=== PATIENT | male | born 1935 | race Caucasian/White ===

== ENCOUNTER 2016-09-27 12:19 | Inpatient (IN) | payer MEDICARE, BC ==
[2016-09-27] VITALS (8 sets, daily range): BP systolic 130–168; BP diastolic 60–76; PULSE 86–95; RESP 12–26; TEMP 96.4–98; O2SAT 96–99
[~2016-09-27] VITALS: Ht 165.1 cm; Wt 102.6 kg
[~2016-09-27 12:19] MED LIST: ALBU1AER INH; ATOR1TAB18 PO; CLOP75TA PO; FENO50TA PO; FURO1TAB62 PO; GLIM4TAB PO; LANTUS2P SQ; LISI-515 PO; METO50TA PO; PREV30CA36 PO; SAXA5TAB2 PO
[2016-09-27] MEDS ORDERED: PIOG45TA3 PO (13:37)
[2016-09-27] MEDS ORDERED: ALBUAER3 INH (13:37)
[2016-09-27] MEDS ORDERED: ASPI81CH CHEW (13:38)
[2016-09-27 13:58] LABS: AUTOMATED NEUTROPHIL # 12.3 TH/MM3 (1.8-7.7); BASOPHIL # 0.1 TH/MM3 (0-0.2); BASOPHIL % 0.7 % (0.0-2.0); EOSINOPHIL # 0.3 TH/MM3 (0-0.4); EOSINOPHIL % 1.8 % (0.0-4.0); HEMATOCRIT 38.5 % (39.0-51.0); HEMO FLAGS DIFF FINAL; LYMPH % 9.1 % (9.0-44.0); LYMPHOCYTE # 1.5 TH/MM3 (1.0-4.8); MEAN CELL VOLUME 94.2 FL (80.0-100.0); MEAN CORPUSCULAR HEMOGLOBIN 31.9 PG (27.0-34.0); MEAN CORPUSCULAR HGB CONC 33.8 % (32.0-36.0); MONO % 12.6 % (0.0-8.0); NEUT % 75.8 % (16.0-70.0); PLATELET COUNT 388 TH/MM3 (150-450); RED BLOOD COUNT 4.09 MIL/MM3 (4.50-5.90); RED CELL DISTRIBUTION WIDTH 13.1 % (11.6-17.2); WHITE BLOOD COUNT 16.2 TH/MM3 (4.0-11.0)
--- NOTE | 2016-09-27 13:58 | RADRPT ---
EXAM DATE/TIME: 09/27/2016 13:44 [facility] COMPARISON: CT BRAIN W/O CONTRAST, September 23, 2016, 4:14. INDICATIONS : Unsteady gait with multiple falls. RADIATION DOSE: 50.44 CTDIvol (mGy) MEDICAL HISTORY : Stroke. Hypertension. diabetes SURGICAL HISTORY : Tonsillectomy. ENCOUNTER: Initial ACUITY: 1 day PAIN SCALE: 0/10 LOCATION: Bilateral head TECHNIQUE: Multiple contiguous axial images were obtained of the head. Using automated exposure control and adj ustment of the mA and/or kV according to patient size, radiation dose was kept as low as reasonably a chievable to obtain optimal diagnostic quality images. FINDINGS: There is mild atrophy and patchy and confluent decreased attenuation in the bilateral centrum semiova le and periventricular white matter again noted characteristic of chronic microvascular ischemic dise ase. There are remote left basal ganglia lacunar infarcts. No signs of acute infarct, hemorrhage or m ass. No fractures. CONCLUSION: No significant change has occurred. Ravi Cesar MD on September 27, 2016 at 13:56 Board Certified Radiologist. This report was verified electronically.
[2016-09-27 14:19] LABS: APTT (PATIENT) 28.9 SEC (24.3-30.1); PROTHROMBIN TIME - PATIENT 11.2 SEC (9.8-11.6)
[2016-09-27 14:25] LABS: ALKALINE PHOSPHATASE 54 U/L (45-117); ALT (GPT) 25 U/L (12-78); ANION GAP 10 MEQ/L (5-15); AST (GOT) 26 U/L (15-37); BICARBONATE 26.3 MEQ/L (21.0-32.0); BLOOD UREA NITROGEN 21 MG/DL (7-18); CHLORIDE 100 MEQ/L (98-107); CREATINE KINASE 208 U/L (39-308); GLOMERULAR FILTRATION RATE 39 ML/MIN (>89); SODIUM (NA) 136 MEQ/L (136-145); TOTAL BILIRUBIN ADULT 0.4 MG/DL (0.2-1.0)
[2016-09-27 14:26] LABS: POTASSIUM 4.7 MEQ/L (3.5-5.1)
[2016-09-27 14:33] LABS: BLOOD, URINE NEG (NEG); COMMENT (UR) CATH-CULT NOT IND; CULTURE IF INDICATED CATH CULTURE NOT IND; GLUCOSE,URINE NEG (NEG); HYALINE CAST, URINE 5 /lpf (RARE); KETONE, URINE NEG (NEG); NITRITE,URINE NEG (NEG); URINE COLOR YELLOW (YELLW/STRAW)
--- NOTE | 2016-09-27 15:24 | RADRPT ---
EXAM DATE/TIME: 09/27/2016 15:20 [facility] COMPARISON: CHEST SINGLE AP, September 23, 2016, 4:14. INDICATIONS : Syncope, right side weakness MEDICAL HISTORY : None. SURGICAL HISTORY : None. ENCOUNTER: Initial ACUITY: 1 week PAIN SCORE: 0/10 LOCATION: Bilateral chest FINDINGS: A single view of the chest demonstrates the lungs to be symmetrically aerated without evidence of mas s, infiltrate or effusion. The cardiomediastinal contours are unremarkable. Osseous structures are intact. CONCLUSION: No evidence of acute cardiopulmonary disease. Gyu Alcaraz MD on September 27, 2016 at 15:23 Board Certified Radiologist. This report was verified electronically.
--- NOTE | 2016-09-27 15:26 | PD ---
HPI Chief Complaint: General Weakness Time Seen by Provider: 13:04 Travel History International Travel<30 days: No Contact w/Intl Traveler<30days: No Traveled to known affect area: No History of Present Illness HPI Patient is a 80-year-old male who presents to ER with his for weakness. Patient reports that he was seen and evaluated here on Tuesday after a fall and for generalized weakness, reports that he had a CAT scan of his head and lab work done and was sent home afterwards. 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 Patient reports that he can't hold onto anything with his right hand and his right hand feels weak. Patient reports that he has been feeling unstable on his feet, reports that he has fallen multiple times. Patient reports that he feels weaker than normal. She is reports that symptoms are worse than when he was here on Tuesday. Patient's is concerned as patient cannot perform his ADL's PFS Past Medical History Arthritis: No Asthma: No Autoimmune Disease: No Blood Disorders: No Anxiety: No Heart Rhythm Problems: No Cancer: No Cardiovascular Problems: Yes High Cholesterol: Yes Chemotherapy: No Chest Pain: Yes Congestive Heart Failure: No COPD: No Cerebrovascular Accident: Yes Diabetes: Yes Patient Takes Glucophage: No Diminished Hearing: No Endocrine: Yes GERD: No Glaucoma: No Genitourinary: No Headaches: No Hepatitis: No Hiatal Hernia: No Hypertension: Yes Immune Disorder: No Kidney Stones: No Musculoskeletal: No Neurologic: Yes Psychiatric: No Respiratory: No Myocardial Infarction: No Radiation Therapy: No Renal Failure: No Seizures: No Sickle Cell Disease: No Sleep Apnea: No Thyroid Disease: No Ulcer: No Past Surgical History Abdominal Surgery: No AICD: No Cardiac Surgery: No Ear Surgery: No Endocrine Surgery: No Eye Surgery: No Genitourinary Surgery: No Gynecologic Surgery: No Joint Replacement: No Oral Surgery: No Pacemaker: No Thoracic Surgery: No Tonsillectomy: Yes Social History Alcohol Use: Yes (MODERATELY) Tobacco Use: No Substance Use: No Allergies-Medications (Allergen,Severity, Reaction): Coded Allergies: No Known Allergies (Verified , 09/27/16) Reported Meds & Prescriptions Reported Meds & Active Scripts Active Reported Aspirin 81 Mg Chew 81 Mg CHEW DAILY Proair Hfa 8.5 GM Inh (Albuterol Sulfate) 90 Mcg/Act Aer 2 Puff INH Q4HR PRN 108 mcg/actuation Pioglitazone (Pioglitazone HCl) 45 Mg Tab 45 Mg PO DAILY Clopidogrel (Clopidogrel Bisulfate) 75 Mg Tab 75 Mg PO DAILY Lantus Inj (Insulin Glargine) 1,000 Unit/10 Ml Vial 12 Units SQ HS Atorvastatin (Atorvastatin Calcium) 80 Mg Tab 80 Mg PO HS Lasix (Furosemide) 20 Mg Tab 20 Mg PO DAILY Glimepiride 4 Mg Tab 4 Mg PO DAILY Take with breakfast or first main meal Metoprolol Tartrate 50 Mg Tab 50 Mg PO BID Tricor (Fenofibrate) 145 Mg Tab 145 Mg PO DAILY Takw with food. Lisinopril 20 Mg Tab 20 Mg PO DAILY Review of Systems General / Constitutional: No: Fever Eyes: No: Visual changes HENT: No: Headaches Cardiovascular: No: Chest Pain or Discomfort Respiratory: No: Shortness of Breath Gastrointestinal: No: Abdominal Pain Genitourinary: No: Dysuria Musculoskeletal: No: Pain Skin: No Rash Neurologic: Positive: Coordination Problem, Ataxia, Paresthesia, No: Weakness Psychiatric: No: Depression Endocrine: No: Polydipsia Hematologic/Lymphatic: No: Easy Bruising Physical Exam Narrative GENERAL: No acute distress, nontoxic SKIN: Warm and dry. HEAD: Atraumatic. Normocephalic. EYES: Pupils equal and round. No scleral icterus. No injection or drainage. ENT: No nasal bleeding or discharge. Mucous membranes pink and moist. NECK: Trachea midline. No JVD. CARDIOVASCULAR: Regular rate and rhythm. No murmur appreciated. RESPIRATORY: No accessory muscle use. Clear to auscultation. Breath sounds equal bilaterally. GASTROINTESTINAL: Abdomen soft, non-tender, nondistended. pt with redness and erythema to lower abdomen under panus - erythema extends to scrotum MUSCULOSKELETAL: No obvious deformities. No clubbing. No cyanosis. No edema. NEUROLOGICAL: Awake and alert. Speech normal, patient unable to perform finger- nose test to right upper extremity, patient with decreased strength in mems integration engineer to right upper extremity PSYCHIATRIC: Appropriate mood and affect; insight and judgment normal. Data Data Last Documented VS Vital Signs Date Time Temp Pulse Resp B/P Pulse Ox O2 Delivery O2 Flow Rate FiO2 09/27/16 13:24 97 Room Air 09/27/16 12:21 98.0 95 12 132/75 Orders Electrocardiogram (09/27/16 ) Prothrombin Time / Inr (Pt) (09/27/16 13:19) Act Partial Throm Time (Ptt) (09/27/16 13:19) Complete Blood Count With Diff (09/27/16 13:19) Comprehensive Metabolic Panel (09/27/16 13:19) Creatine Kinase (Cpk) (09/27/16 13:19) Troponin I (09/27/16 13:19) Urinalysis - C+S If Indicated (09/27/16 13:19) Ecg Monitoring (09/27/16 13:19) Iv Access Insert/Monitor (09/27/16 13:19) Oximetry (09/27/16 13:19) Sodium Chloride 0.9% Flush (Ns Flush) (09/27/16 13:30) Ct Brain W/O Iv Contrast(Rout) (09/27/16 13:20) Influenzae A/B Antigen (09/27/16 15:10) Chest, Single Ap (09/27/16 15:10) Vancomycin Inj (Vancomycin Inj) (09/27/16 15:30) Blood Culture (09/27/16 15:30) Us Testicles W Doppler (09/27/16 ) Sodium Chlor 0.9% 1000 Ml Inj (Ns 1000 M (09/27/16 15:45) Admit Order (Ed Use Only) (09/27/16 15:45) Labs Laboratory Tests Test 09/27/16 09/27/16 13:35 14:00 White Blood Count 16.2 TH/MM3 Red Blood Count 4.09 MIL/MM3 Hemoglobin 13.0 GM/DL Hematocrit 38.5 % Mean Corpuscular Volume 94.2 FL Mean Corpuscular Hemoglobin 31.9 PG Mean Corpuscular Hemoglobin 33.8 % Concent Red Cell Distribution Width 13.1 % Platelet Count 388 TH/MM3 Mean Platelet Volume 8.5 FL Neutrophils (%) (Auto) 75.8 % Lymphocytes (%) (Auto) 9.1 % Monocytes (%) (Auto) 12.6 % Eosinophils (%) (Auto) 1.8 % Basophils (%) (Auto) 0.7 % Neutrophils # (Auto) 12.3 TH/MM3 Lymphocytes # (Auto) 1.5 TH/MM3 Monocytes # (Auto) 2.0 TH/MM3 Eosinophils # (Auto) 0.3 TH/MM3 Basophils # (Auto) 0.1 TH/MM3 CBC Comment DIFF FINAL Differential Comment Prothrombin Time 11.2 SEC Prothromb Time International 1.0 RATIO Ratio Activated Partial 28.9 SEC Thromboplast Time Sodium Level 136 MEQ/L Potassium Level 4.7 MEQ/L Chloride Level 100 MEQ/L Carbon Dioxide Level 26.3 MEQ/L Anion Gap 10 MEQ/L Blood Urea Nitrogen 21 MG/DL Creatinine 1.71 MG/DL Estimat Glomerular Filtration 39 ML/MIN Rate Random Glucose 189 MG/DL Calcium Level 9.0 MG/DL Total Bilirubin 0.4 MG/DL Aspartate Amino Transf 26 U/L (AST/SGOT) Alanine Aminotransferase 25 U/L (ALT/SGPT) Alkaline Phosphatase 54 U/L Total Creatine Kinase 208 U/L Troponin I LESS THAN 0.02 NG/ML Total Protein 8.2 GM/DL Albumin 3.0 GM/DL Urine Color YELLOW Urine Turbidity CLEAR Urine pH 5.0 Urine Specific [place] 1.008 Urine Protein NEG mg/dL Urine Glucose (UA) NEG mg/dL Urine Ketones NEG mg/dL Urine Occult Blood NEG Urine Nitrite NEG Urine Bilirubin NEG Urine Urobilinogen LESS THAN 2.0 MG/DL Urine Leukocyte Esterase NEG Urine RBC LESS THAN 1 /hpf Urine WBC 1 /hpf Urine Hyaline Casts 5 /lpf Microscopic Urinalysis Comment CATH-CULT NOT IND MDM Medical Decision Making Medical Screen Exam Complete: Yes Emergency Medical Condition: Yes Interpretation(s) EKG at 1312: Normal sinus rhythm at 93 beats minute, QT/QTc 339/390 Vital Signs Date Time Temp Pulse Resp B/P Pulse Ox O2 Delivery O2 Flow Rate FiO2 09/27/16 13:24 97 Room Air 09/27/16 12:21 98.0 95 12 132/75 99 Room Air Differential Diagnosis CVA, arrhythmia, electrolyte abnormality, intracerebral hemorrhage, ACS, intracranial mass Narrative Course Patient is a 72-year-old male who presents [facility] [place] with generalized weakness starting on Tuesday. Patient has progressed to increased weakness to his right upper extremity, reports that symptoms started Tuesday and have been persistent. Reports that he has fallen 3 times since he was discharged from hospital. This is concern for possible CVA or intracranial hemorrhage, CT of head ordered CBC, BMP, cardiac enzymes ordered for further evaluation symptoms. CT of the head : remote left basal ganglier lacunar infarcts with no signs of acute infarct, hemorrhage or mass. NIH scale 1 pt also with wbc 16, it is unclear his source of infection. Patient does have what appears to be a fungal infection under his pannus which extends to his testicle, it does not appear to be necrotizing fasciitis - will treat for possible cellulitis case reviewed with Dr Elkins who accepts pt to service Diagnosis Primary Impression: TIA (transient ischemic attack) Qualified Code: G45.9 - Transient cerebral ischemia, unspecified type Additional Impression: Cellulitis of scrotum Admitting Information Admitting Physician Requests: Observation Natty Nugent DO Sep 27, 2016 15:26
[2016-09-27] MEDS ORDERED: VANCOMYCIN INJ 1,600 MG in SODIUM CHLORID 0.9% 500 ML INJ 500 ML IV ONE (15:30)
[2016-09-27] MEDS ORDERED: SODIUM CHLOR 0.9% 1000 ML INJ 1,000 ML IV ONE (15:45)
[2016-09-27] MEDS: SODIUM CHLORIDE 0.9% FLUSH 5 ML FLUSH IVF PRN ×2 (16:13→16:40)
--- NOTE | 2016-09-27 16:58 | RADRPT ---
EXAM DATE/TIME: 09/27/2016 15:57 [facility] COMPARISON: No previous studies available for comparison. INDICATIONS : Testicular pain. MEDICAL HISTORY : Hypercholesterolemia. Hypertension. Cerebrovascular accident. Diabetes. SURGICAL HISTORY : Tonsillectomy. ENCOUNTER: Initial ACUITY: 1 day PAIN SCORE: 0/10 LOCATION: Bilateral scrotum. MEASUREMENTS: RIGHT TESTICLE: 3.2 x 2.2 x 1.9cm LEFT TESTICLE: 2.8 x 2.2 x 1.9cm FINDINGS: Both testes are small but no focal testicular lesion demonstrated. There is blood flow demonstrated t o both testes. Right and left epididymis are normal. There is thickening and hyperemia of the scrotal wall with moderate right and small left hydrocele fl uid. CONCLUSION: 1. Nonspecific scrotal wall edema and hyperemia with hydrocele fluid. Could be infectious. No drainab le fluid within the scrotal wall. 2. No torsion or other acute testicular abnormality. Guy Alcaraz MD on September 27, 2016 at 16:55 Board Certified Radiologist. This report was verified electronically.
[2016-09-27] MEDS ORDERED: SODIUM CHLOR 0.9% 1000 ML INJ 1,000 ML IV SCH (17:00)
[2016-09-27] MEDS ORDERED: MAGNESIUM HYDROXIDE SUSP 30 ML CUP PO PRN (17:15)
[2016-09-27] MEDS ORDERED: ONDANSETRON HCL 4 MG/2 ML VIAL IVP PRN (17:15)
[2016-09-27] MEDS ORDERED: Vancomycin Consult Pharmacy 1 EA OTHER SCH (17:15)
[2016-09-27] MEDS ORDERED: DEXTROSE 50% IN WATER 50 ML VIAL(D50) IV PUSH PRN (17:15)
[2016-09-27] MEDS ORDERED: ACETAMINOPHEN 325 MG TAB PO PRN (17:15)
[2016-09-27] MEDS ORDERED: VANCOMYCIN INJ 1,000 MG in SODIUM CHLOR 0.9% 250 ML INJ 250 ML IV SCH (17:15)
[2016-09-27] MEDS ORDERED: ALBUTEROL SULFATE 90 MCG/ACT HFA 8 GM INHALER INH PRN (17:15)
[2016-09-27] MEDS ORDERED: SODIUM CHLORIDE 0.9% FLUSH 5 ML FLUSH FLUSH PRN (17:15)
[2016-09-27] MEDS ORDERED: NALOXONE HCL 0.4 MG/ML AMP IV PRN (17:15)
[2016-09-27] MEDS ORDERED: GLUCAGON 1 MG/ML VIAL OTHER PRN (17:15)
--- NOTE | 2016-09-27 17:24 | HHI.HP ---
HPI Service [facility] Primary Care Physician Gary Cardenas MD Admission Diagnosis TIA Diagnoses: Chief Complaint: Right-sided weakness and falls Travel History International Travel<30 Days: No Contact w/Intl Traveler <30 Da: No Traveled to Known Affected Are: No History of Present Illness This is a pleasant 80-year-old gentleman with a past medical history which includes hyperlipidemia, CVA, diabetes mellitus type 2, hypertension. Patient was recently seen in the emergency department last Tuesday after he had right-sided weakness and suffered a fall patient was subsequently discharged home. Patient returns today he reports he has fallen 3 more times and has continued right-sided weakness. Right-sided weakness seems to be getting worse. Patient reports that over the past 3 days he has been having difficulty with ambulation and is unable to hold or grasp objects with the right hand. Patient denies slurred speech or facial asymmetry, headache or visual changes. Patient denies hitting his head on any of these falls and reports he's had no injuries so far. On examining patient is found to have bilateral groin erythema with satellite lesions and an odor consistent with Yovanny. Patient reports this is been present for the past 3 months and does seem to be getting worse. Patient does report moderate pain that comes and goes. Pain is worse when anything touches the skin. At home patient has been trying to keep the area dry and clean but this has not helped it continues to get worse. Patient denies chest pain shortness of breath fevers chills nausea vomiting diarrhea constipation. Review of Systems Other Other systems reviewed and negative except as mentioned in history of present illness Past Family Social History Past Medical History hyperlipidemia, CVA, diabetes mellitus type 2, hypertension Past Surgical History Tonsillectomy Reported Medications Aspirin 81 Mg Chew 81 Mg CHEW DAILY Proair Hfa 8.5 GM Inh (Albuterol Sulfate) 90 Mcg/Act Aer 2 Puff INH Q4HR PRN 108 mcg/actuation Pioglitazone (Pioglitazone HCl) 45 Mg Tab 45 Mg PO DAILY Clopidogrel (Clopidogrel Bisulfate) 75 Mg Tab 75 Mg PO DAILY Lantus Inj (Insulin Glargine) 1,000 Unit/10 Ml Vial 12 Units SQ HS Atorvastatin (Atorvastatin Calcium) 80 Mg Tab 80 Mg PO HS Lasix (Furosemide) 20 Mg Tab 20 Mg PO DAILY Glimepiride 4 Mg Tab 4 Mg PO DAILY Take with breakfast or first main meal Metoprolol Tartrate 50 Mg Tab 50 Mg PO BID Tricor (Fenofibrate) 145 Mg Tab 145 Mg PO DAILY Takw with food. Lisinopril 20 Mg Tab 20 Mg PO DAILY Allergies: Coded Allergies: No Known Allergies (Verified , 09/27/16) Active Ordered Medications Current Medications Medications (Trade) Dose Ordered Sig/Alexandru Route Start Time Stop Time Status Last Admin IV Flush 2 ml 2 ml UNSCH PRN IVF 09/27/16 13:30 09/27/16 16:40 (Vancomycin Inj/ NS 500 ml Inj) 516 ml @ 250 mls/hr ONCE ONCE IV 09/27/16 15:30 09/27/16 17:33 09/27/16 16:40 Family History Paternal grandfather had CVA, mother had heart disease Social History Patient lives at home with his reports moderate EtOH use which she reports as one alcoholic beverage on most days of the week Denies tobacco use or illicit drug use Physical Exam Vital Signs Vital Signs Date Time Temp Pulse Resp B/P Pulse Ox O2 Delivery O2 Flow Rate FiO2 09/27/16 13:24 97 Room Air 09/27/16 12:21 98.0 95 12 132/75 99 Room Air Physical Exam GENERAL: This is a well-nourished, well-developed patient, in no apparent distress. SKIN: Erythema bilateral groins with satellite lesions extends from just below the pannus to bilateral testicles HEAD: Atraumatic. Normocephalic. No temporal or scalp tenderness. EYES: Extraocular motions intact. No scleral icterus. No injection or drainage. CARDIOVASCULAR: Regular rate and rhythm without murmurs, gallops, or rubs. RESPIRATORY: Clear to auscultation. Breath sounds equal bilaterally. No wheezes , rales, or rhonchi. GASTROINTESTINAL: Abdomen soft, non-tender, nondistended. No guarding. MUSCULOSKELETAL: Extremities without clubbing, cyanosis, or edema. No joint tenderness, effusion, or edema noted. No calf tenderness. Negative Homans sign bilaterally. 3-4 out of 5 right upper extremity 4 out of 5 right lower extremity. NEUROLOGICAL: Awake and alert. Sensory grossly within normal limits. 3-4 out of 5 right upper extremity 4 out of 5 right lower extremity. Normal speech. Laboratory Laboratory Tests Test 09/27/16 09/27/16 13:35 14:00 White Blood Count 16.2 Red Blood Count 4.09 Hemoglobin 13.0 Hematocrit 38.5 Mean Corpuscular Volume 94.2 Mean Corpuscular Hemoglobin 31.9 Mean Corpuscular Hemoglobin 33.8 Concent Red Cell Distribution Width 13.1 Platelet Count 388 Mean Platelet Volume 8.5 Neutrophils (%) (Auto) 75.8 Lymphocytes (%) (Auto) 9.1 Monocytes (%) (Auto) 12.6 Eosinophils (%) (Auto) 1.8 Basophils (%) (Auto) 0.7 Neutrophils # (Auto) 12.3 Lymphocytes # (Auto) 1.5 Monocytes # (Auto) 2.0 Eosinophils # (Auto) 0.3 Basophils # (Auto) 0.1 CBC Comment DIFF FINAL Differential Comment Prothrombin Time 11.2 Prothromb Time International 1.0 Ratio Activated Partial 28.9 Thromboplast Time Sodium Level 136 Potassium Level 4.7 Chloride Level 100 Carbon Dioxide Level 26.3 Anion Gap 10 Blood Urea Nitrogen 21 Creatinine 1.71 Estimat Glomerular Filtration 39 Rate Random Glucose 189 Calcium Level 9.0 Total Bilirubin 0.4 Aspartate Amino Transf 26 (AST/SGOT) Alanine Aminotransferase 25 (ALT/SGPT) Alkaline Phosphatase 54 Total Creatine Kinase 208 Troponin I LESS THAN 0.02 Total Protein 8.2 Albumin 3.0 Urine Color YELLOW Urine Turbidity CLEAR Urine pH 5.0 Urine Specific [place] 1.008 Urine Protein NEG Urine Glucose (UA) NEG Urine Ketones NEG Urine Occult Blood NEG Urine Nitrite NEG Urine Bilirubin NEG Urine Urobilinogen LESS THAN 2.0 Urine Leukocyte Esterase NEG Urine RBC LESS THAN 1 Urine WBC 1 Urine Hyaline Casts 5 Microscopic Urinalysis Comment CATH-CULT NOT IND Date/Time Procedure Status Source Growth 09/27/16 15:55 Aerobic Blood Culture Received Blood Peripheral Pending 09/27/16 15:55 Anaerobic Blood Culture Received Blood Peripheral Pending 09/27/16 15:45 Influenza Types A,B Antigen (AMIRA) - Final Complete Nasal Aspirate NEGATIVE FOR FLU A AND B ANTIGEN.... Result Diagram: 09/27/16 6685 09/27/16 1335 Assessment and Plan Assessment and Plan This is a pleasant 80-year-old gentleman with a past medical history which includes hyperlipidemia, CVA, diabetes mellitus type 2, hypertension. Since the emergency department with right-sided weakness and bilateral groin cellulitis superimposed on Yovanny. Leukocytosis Cellulitis bilaterally and coronary superimposed on yovanny infection Nystatin cream Continue vancomycin with pharmacy consult to dose Testicular ultrasound pending, blood cultures 2 obtained and pending Recheck a CBC Focal weakness right side [address] of the head reviewed by myself as well as Dr. Morris- no signs of acute infarct hemorrhage or mass mild atrophy remote left basal ganglia lacunar infarcts Continue daily aspirin and Plavix Also continue atorvastatin and TriCor check lipid profile in a.m. Physical therapy consultation and case management consult MRI/MRA ordered and pending,US bilateral carotid arteries ordered and pending , 2-D echocardiogram ordered and pending Diabetes mellitus type 2 Hold Actos and Glimepiride Levemir 12 units daily at bedtime Accu-Cheks before meals at bedtime with sliding scale insulin coverage Hemoglobin A1c in a.m. Slightly elevated renal indices BUN 21 creatinine 1.71 and GFR 39 hold Lovenox and Lasix as patient's home medications Gentle hydration and 50 cc/h Recheck in a.m. DVT prophylaxis with SCDs Discussed plan of care with patient RN and ER provider Written by Maria C Gagnon, acting as scribe for Dr. Morris on 09/27/16 at 17 :23. The documentation accurately reflects the work performed [id number] by me on at 17:23. Code Status Alternatively code Physician Certification 2 Midnight Certification Type: Admission for Inpatient Services Order for Inpatient Services The services are ordered in accordance with Medicare regulations or non- Medicare payer requirements, as applicable. In the case of services not specified as inpatient-only, they are appropriately provided as inpatient services in accordance with the 2-midnight benchmark. Estimated LOS (days): 3 days is the estimated time the patient will need to remain in the hospital, assuming treatment plan goals are met and no additional complications. Post-Hospital Plan: Not yet determined Maria C Gagnon Sep 27, 2016 17:24 Hermann Morris MD Sep 27, 2016 17:35
[2016-09-27] MEDS: INSULIN ASPART SUPPLEMENTAL SCALE SQ SCH (20:06)
[2016-09-27] MEDS: INSULIN DETEMIR 100 UNITS/ML VIAL SQ SCH (20:30)
[2016-09-27] MEDS: SODIUM CHLORIDE 0.9% FLUSH 5 ML FLUSH FLUSH SCH (20:30)
[2016-09-27] MEDS: METOPROLOL TARTRATE 50 MG TAB PO SCH (20:30)
[2016-09-27] MEDS: cefTRIAXone INJ 1,000 MG in SODIUM CHLORIDE 0.9% INJ 100 ML IV SCH (20:31)
[2016-09-27] MEDS: NYSTATIN 100,000 UNIT/GM CREAM 15 GM TOPICAL SCH (20:50)
[2016-09-27] MEDS: ATORVASTATIN 80 MG TAB PO SCH (20:50)
--- NOTE | 2016-09-27 21:12 | RADRPT ---
EXAM DATE/TIME: 09/27/2016 18:20 [facility] COMPARISON: No previous studies available for comparison. INDICATIONS : Cerebrovascular accident. MEDICAL HISTORY : Hypercholesterolemia. Hypertension. Cerebrovascular accident. Diabetes. SURGICAL HISTORY : Tonsillectomy. ENCOUNTER: Initial ACUITY: 1 day PAIN SCORE: 0/10 LOCATION: Bilateral neck PEAK SYSTOLIC VELOCITIES (cm/sec): ICA/CCA RATIO: Right: 0.8 Left: 0.8 ICA: Right: 88 Left: 100 CCA: Right: 108 Left: 122 ECA: Right: 91 Left: 126 VERTEBRAL: Right: 36 antegrade Left: 61 antegrade Elevated flow velocities and ICA/CCA ratios have been found to correlate with increased degrees of vessel stenosis, calculated as percentage of diameter relative to a normal segment of distal ICA/CCA FINDINGS: RIGHT CAROTID: There is moderate plaque at the bulb and external carotid artery. Minimal plaque of the proximal righ t internal carotid artery. LEFT CAROTID: Mild plaque of the bulb and proximal internal carotid artery. VERTEBRAL ARTERIES: Antegrade flow is seen in both vertebral arteries. MISCELLANEOUS: None. CONCLUSION: Bifurcation atherosclerotic plaque, mild to moderate on the right, mild on the left. No hemodynamical ly significant narrowing on either side. Guy Alcaraz MD on September 27, 2016 at 21:10 Board Certified Radiologist. This report was verified electronically.
[2016-09-28] VITALS (10 sets, daily range): BP systolic 114–154; BP diastolic 56–69; PULSE 71–105; RESP 18–20; TEMP 96.3–97.9; O2SAT 94–97
[2016-09-28] MEDS: INSULIN ASPART SUPPLEMENTAL SCALE SQ SCH ×4 (07:00→22:06)
[2016-09-28 07:16] LABS: ANION GAP 10 MEQ/L (5-15); AUTOMATED NEUTROPHIL # 7.6 TH/MM3 (1.8-7.7); BASOPHIL # 0.1 TH/MM3 (0-0.2); BASOPHIL % 0.8 % (0.0-2.0); BICARBONATE 25.1 MEQ/L (21.0-32.0); BLOOD UREA NITROGEN 17 MG/DL (7-18); CHLORIDE 107 MEQ/L (98-107); EOSINOPHIL # 0.6 TH/MM3 (0-0.4); EOSINOPHIL % 4.9 % (0.0-4.0); GLOMERULAR FILTRATION RATE 56 ML/MIN (>89); HEMATOCRIT 36.2 % (39.0-51.0); HEMO FLAGS DIFF FINAL; LYMPH % 20.1 % (9.0-44.0); LYMPHOCYTE # 2.5 TH/MM3 (1.0-4.8); MEAN CELL VOLUME 94.8 FL (80.0-100.0); MEAN CORPUSCULAR HGB CONC 33.8 % (32.0-36.0); MONO % 13.1 % (0.0-8.0); NEUT % 61.1 % (16.0-70.0); PLATELET COUNT 361 TH/MM3 (150-450); POTASSIUM 3.8 MEQ/L (3.5-5.1); RED BLOOD COUNT 3.82 MIL/MM3 (4.50-5.90); SODIUM (NA) 142 MEQ/L (136-145); WHITE BLOOD COUNT 12.4 TH/MM3 (4.0-11.0)
[2016-09-28 07:18] LABS: HDL CHOLESTEROL 26.6 MG/DL (40.0-60.0); LDL CHOLESTEROL 41 MG/DL (0-99)
[2016-09-28] MEDS ORDERED: ASPIRIN 81 MG CHEW TAB CHEW SCH (09:00)
[2016-09-28] MEDS ORDERED: CLOPIDOGREL 75 MG TAB PO SCH (09:00)
[2016-09-28] MEDS ORDERED: FENOFIBRATE 145 MG TAB PO SCH (09:00)
--- NOTE | 2016-09-28 09:58 | RADRPT ---
EXAM DATE/TIME: 09/28/2016 09:27 [facility] COMPARISON: CT BRAIN W/O CONTRAST, September 27, 2016, 13:44. INDICATIONS : Increasing right sided weakness with frequent falls MEDICAL HISTORY : Hypertension. Diabetes mellitus type 2. TIA SURGICAL HISTORY : Tonsillectomy. ENCOUNTER: Subsequent ACUITY: 4-6 days PAIN SCORE: 0/10 LOCATION: cranial TECHNIQUE: Multiplanar, multisequence MRI of the brain was performed without contrast. FINDINGS: CEREBRUM: The ventricles are normal for age. No evidence of midline shift, mass lesion, hemorrhage. There is a small focal acute infarct involving the left basal ganglia. No extraaxial fluid collections are see n. The pituitary gland and suprasellar cistern are normal in configuration. WHITE MATTER: Moderate chronic white matter changes are noted bilaterally. This is characteristic for patient's age . POSTERIOR FOSSA: The cerebellum and brainstem are intact. The 4th ventricle is midline. The cerebellopontine angle is unremarkable. The cerebellar tonsils are normal in position. DIFFUSION IMAGING: Focal area of increased signal characteristic for restricted diffusion is noted in the left basal julio cesar glia characteristic of a focal acute small infarct. EXTRACRANIAL: The visualized portions of the orbits and paranasal sinuses are unremarkable. CONCLUSION: 1. There is a focal acute small infarct in the left basal ganglia. 2. There is bilateral cortical atrophy. 3. There is chronic moderate bilateral white matter changes. Daniel Figueroa MD on September 28, 2016 at 9:54 Board Certified Radiologist. This report was verified electronically.
[2016-09-28] MEDS ORDERED: PNEUMOCOCCAL POLYVALENT INJ 25 MCG/0.5 ML SYR IM ONE (10:00)
--- NOTE | 2016-09-28 11:01 | HHI.PR ---
Subjective Remarks Follow-up right-sided weakness/groin cellulitis 09/28/16-patient seen and examined, stable no acute event overnight. Currently afebrile. WBC trending down. Objective Vitals Vital Signs Date Time Temp Pulse Resp B/P Pulse Ox O2 Delivery O2 Flow Rate FiO2 09/28/16 08:27 97 21 09/28/16 08:10 96.7 82 20 132/62 97 09/28/16 07:43 84 09/28/16 04:00 97.9 71 18 114/56 95 09/28/16 03:30 71 09/28/16 00:00 96.7 83 20 152/67 96 09/27/16 20:00 96.4 91 22 168/76 97 09/27/16 16:35 86 23 130/60 98 Room Air 09/27/16 15:35 88 23 148/69 96 Room Air 09/27/16 14:35 88 23 146/66 96 Room Air 09/27/16 14:00 90 26 149/65 96 Room Air 09/27/16 13:24 97 Room Air 09/27/16 13:20 94 24 154/74 98 Room Air 09/27/16 12:21 98.0 95 12 132/75 99 Room Air I/O 09/27/16 09/27/16 09/27/16 09/28/16 09/28/16 09/28/16 07:00 15:00 23:00 07:00 15:00 23:00 Intake Total 120 ml Output Total 375 ml 425 ml Balance -375 ml -305 ml Intake Oral 120 ml Output Urine Total 375 ml 425 ml # Bowel Movements 0 Result Diagram: 09/28/16 0615 09/28/16 0615 Imaging Last Impressions Chest X-Ray 09/27/16 1510 Signed Impressions: Service Date/Time: Tuesday, September 27, 2016 15:20 - CONCLUSION: No evidence of acute cardiopulmonary disease. Guy Alcaraz MD Head CT 09/27/16 1320 Signed Impressions: Service Date/Time: Tuesday, September 27, 2016 13:44 - CONCLUSION: No significant change has occurred. Ravi Cesar MD Scrotum Ultrasound 09/27/16 0000 Signed Impressions: Service Date/Time: Tuesday, September 27, 2016 15:57 - CONCLUSION: 1. Nonspecific scrotal wall edema and hyperemia with hydrocele fluid. Could be infectious. No drainable fluid within the scrotal wall. 2. No torsion or other acute testicular abnormality. Guy Alcaraz MD Carotid Artery Ultrasound 09/27/16 0000 Signed Impressions: Service Date/Time: Tuesday, September 27, 2016 18:20 - CONCLUSION: Bifurcation atherosclerotic plaque, mild to moderate on the right, mild on the left. No hemodynamically significant narrowing on either side. Guy Alcaraz MD Objective Remarks GENERAL: This is a well-nourished, well-developed patient, in no apparent distress. SKIN: Erythema bilateral groins with satellite lesions extends from just below the pannus to bilateral testicles HEAD: Atraumatic. Normocephalic. No temporal or scalp tenderness. EYES: Extraocular motions intact. No scleral icterus. No injection or drainage. CARDIOVASCULAR: Regular rate and rhythm without murmurs, gallops, or rubs. RESPIRATORY: Clear to auscultation. Breath sounds equal bilaterally. No wheezes , rales, or rhonchi. GASTROINTESTINAL: Abdomen soft, non-tender, nondistended. No guarding. MUSCULOSKELETAL: Extremities without clubbing, cyanosis, or edema. No joint tenderness, effusion, or edema noted. No calf tenderness. Negative Homans sign bilaterally. 3-4 out of 5 right upper extremity 4 out of 5 right lower extremity. NEUROLOGICAL: Awake and alert. Sensory grossly within normal limits. 3-4 out of 5 right upper extremity 4 out of 5 right lower extremity. Normal speech. A/P Problem List: (1) Cellulitis of scrotum ICD Code: N49.2 Status: Acute (2) TIA (transient ischemic attack) ICD Code: G45.9 Status: Acute (3) Generalized weakness ICD Code: R53.1 Status: Acute Assessment and Plan This is a pleasant 80-year-old gentleman with a past medical history which includes hyperlipidemia, CVA, diabetes mellitus type 2, hypertension. Since the emergency department with right-sided weakness and bilateral groin cellulitis superimposed on Yovanny. Leukocytosis 2/2 Cellulitis bilaterally and coronary superimposed on yovanny infection Continue Nystatin cream as well as vancomycin + Rocephin and monitor culture Testicular ultrasound noted with finding of Nonspecific scrotal wall edema and hyperemia with hydrocele fluid Focal weakness right side [address] of the head with no signs of acute infarct hemorrhage or mass mild atrophy remote left basal ganglia lacunar infarcts Continue daily aspirin and Plavix as well as atorvastatin and TriCor Physical therapy/OT consultation and case management consult MRI/MRA ordered and pending,US bilateral carotid arteries ordered and pending , 2-D echocardiogram ordered and pending Consult neurology Diabetes mellitus type 2 Hold Actos and Glimepiride Levemir 12 units daily at bedtime Accu-Cheks before meals at bedtime with sliding scale insulin coverage Hemoglobin A1c pending. Mild acute renal failure :Slightly elevated renal indices BUN 21 creatinine 1.71 and GFR 39-now resolved with gentle IV fluid hydration hold Lovenox and Lasix as patient's home medications Avoid all nephrotoxic drugs DVT prophylaxis with SCDs Problem Qualifiers (1) TIA (transient ischemic attack): Qualified Code: G45.9 - Transient cerebral ischemia, unspecified type Hermann Morris MD Sep 28, 2016 11:01
[2016-09-28] MEDS: FENOFIBRATE 48 MG TAB PO SCH (11:03)
[2016-09-28] MEDS: METOPROLOL TARTRATE 50 MG TAB PO SCH ×2 (11:04→22:01)
--- NOTE | 2016-09-28 11:08 | RADRPT ---
EXAM DATE/TIME: 09/28/2016 09:27 [facility] COMPARISON: No previous studies available for comparison. INDICATIONS : Increasing right sided weakness with frequent falls. MEDICAL HISTORY : Hypertension. Diabetes mellitus type 2. TIA SURGICAL HISTORY : Tonsillectomy. ENCOUNTER: Subsequent ACUITY: 4-6 days PAIN SCORE: 0/10 LOCATION: cranial Please note a normal MRA of the brain does not entirely exclude the possibility of a small aneurysm, nor the possibility of distal intracranial vessel disease. TECHNIQUE: 3D time of flight MRA was performed. Source images, multiplanar STS MIP, and 3D volume MIP reconstru ctions were reviewed. FINDINGS: The right posterior cerebral artery arises in fashion. There is a moderate focal stenotic narro wing involving the P2 segment. [place] vessels are otherwise intact and unremarkable. No evidence of aneurysm or vascular malformation. No major vessel occlusion. CONCLUSION: Stenotic narrowing involving the P2 portion of right posterior cerebral artery which arises in fashion. Otherwise normal study Guy Hicks MD on September 28, 2016 at 10:58 Board Certified Radiologist. This report was verified electronically.
[2016-09-28] MEDS: NYSTATIN 100,000 UNIT/GM CREAM 15 GM TOPICAL SCH ×2 (11:13→22:04)
[2016-09-28] MEDS: SODIUM CHLORIDE 0.9% FLUSH 5 ML FLUSH FLUSH SCH ×2 (11:14→21:00)
[2016-09-28 15:48] LABS: HEMOGLOBIN A1a 2.2 %; HEMOGLOBIN A1b 2.7 %; HEMOGLOBIN Ao 79.2 %; HEMOGLOBIN LA1C 1.6 %
[2016-09-28] MEDS ORDERED: VANCOMYCIN INJ 1,500 MG in SODIUM CHLORID 0.9% 500 ML INJ 500 ML IV SCH (16:00)
--- NOTE | 2016-09-28 16:52 | MB ---
cc: STONEY RODRIGUEZ MD DATE OF CONSULTATION 09/28/16 1937 REASON FOR CONSULTATION Stroke. HISTORY OF PRESENT ILLNESS Mr. Lott is a 80-year-old man with a history of hypertension, hyperlipidemia, diabetes, possible stroke in the past, seen in the ED last Tuesday after having some right-sided weakness and a fall. He was discharged home. He returned the day of admission on 09/27/2016 with more falls and continuing right-sided weakness. His cannot take pick him up, had to get the fire department to pick him up. He did have an MRI that confirms what looks like a left basal ganglionic infarct. He is somewhat anxious, still confused. He wants to go home but admits to the right-sided weakness, inability to walk. He was found to have some yovanny of the groin area as well. He denies headache, chest pain, shortness of breath, nausea, vomiting, diarrhea, admits to right-sided weakness and falls. PAST MEDICAL HISTORY As stated above MEDICATIONS Home medicines 1. Baby aspirin 2. ProAir 3. Pioglitazone 4. Plavix 75 mg. 5. Lantus 6. Atorvastatin 7. Lasix 8. Glimepiride 9. Metoprolol 10. Tricor 11. Lisinopril. ALLERGIES None reported. FAMILY HISTORY Stroke in the grandfather. Mother with heart disease. SOCIAL HISTORY , lives with his , some moderate alcohol, one beverage on most days of the week. No tobacco or drugs. PHYSICAL EXAMINATION VITAL SIGNS: Temperature 96.3, heart rate 105, respiratory rate 20, blood pressure 141/61, heart rate prior to that was 82. NECK: Neck is supple. No bruits. HEART: Currently heart rate is regular. No murmurs. LUNGS: Lungs are clear. NEUROLOGIC: He is awake and alert. His speech is mildly dysarthric. No facial droop. Tongue midline. Facial sensation is normal. Motor: Right sided drift at best he is a 4/5 proximally, distally 4-/5. There is a right leg lag, right toe is upgoing. Decreased light touch over the right side. DTRs are trace to 1+ throughout. Pictnh-wczz-axplxt no dysmetria but slow on the right side and as [id number]. Gait is withheld at this time. LABORATORY DATA White count 12.4, hemoglobin 12.2, platelets 361,000. Coag panel is normal. Chemistries - BUN 17, creatinine 1.24, GFR of 56, glucose 71, hemoglobin A1c is pending. Calcium 8.4, triglycerides 143, cholesterol 96, LDL 41, HDL 26.6. Urine unremarkable. IMAGING STUDIES Carotid ultrasound - bifurcation plaque mild moderate on the right, mild on the left. No hemodynamically significant narrowing at either side. MRA [place] of [place] - stenotic narrowing involving the P2 portion of the right [employer]IN[employer] which is in the fashion otherwise unremarkable study. MRI of the brain shows focal acute small infarct in the left basal ganglia and atrophy and moderate white matter changes. IMPRESSION Left basal ganglionic infarct in a 80-year-old man with a history of hypertension, hyperlipidemia, diabetes. RECOMMENDATION Continue statin therapy. He is already on baby aspirin and Plavix 75 mg. I am going to discontinue those two drugs and change them to Aggrenox b.i.d. If the b.i.d. dosing initially gives him a headache then D&C b.i.d. dosing for once a day at bedtime with a baby aspirin in the morning for 1 week and then change it back to b.i.d. Risk factor modification of his lipids, blood pressure. PT, OT, speech therapy, rehab consult. I did discuss with him he would be a good rehab candidate given the fact that he still has deficits and would benefit from inpatient rehabilitation. That will be determined. Lovenox for DVT prophylaxis. SCDs while in bed, also antibiotics as needed for his groin infection as well as maybe an antifungal agent if needed. Keep him on telemetry. Permissible hypertension, but starting tomorrow I would start normalizing his blood pressure with avoiding significant hypotension. Discharge planning if his echocardiogram is still pending; it has not been done. Discharge planning to PT in the next 24 hours if all workup is completed and stable. MD ASHTYN Fontaine/ /3:17 PM /4:33 PM
--- NOTE | 2016-09-28 17:42 | EC ---
Study Study Date:09/28/2016 STUDY CONCLUSIONS SUMMARY - Procedure narrative: Image quality was fair. The study was technically limited due to poor acoustic window availability. - Left ventricle: The cavity size was normal. Systolic function was normal. The estimated ejection fraction was in the range of 55% to 60%. - Mitral valve: Moderately calcified annulus. Normal thickness leaflets, . Mild regurgitation. - Left atrium: The atrium was mildly dilated. If LV function is below 40, please consider prescribing an ACEI or ARB or document rationale for non-use. PROCEDURE DATA STUDY STATUS: Elective. Procedure: Transthoracic echocardiography. Image quality was fair. The study was technically limited due to poor acoustic window availability. Scanning was performed from the parasternal, apical, and subcostal acoustic windows. Study completion: The patient tolerated the procedure well. Transthoracic echocardiography. M-mode, complete 2D, complete spectral Doppler, and color Doppler. Height: Height: 65in. Weight: Weight: 232.5lb. Body mass index: BMI: 38.8kg/m^2. Body surface area: BSA: 2.11m^2. Patient status: Inpatient. CARDIAC ANATOMY LEFT VENTRICLE: The cavity size was normal. Systolic function was normal. The estimated ejection fraction was in the range of 55% to 60%. AORTIC VALVE: The valve appears to be grossly normal. Doppler: There was no stenosis. No significant regurgitation. Valve area: 2.92cm^2 (Vmax). Indexed valve area: 1.38cm^2/m^2 (Vmax). MITRAL VALVE: Moderately calcified annulus. Normal thickness leaflets, . Doppler: There was no evidence for stenosis. Mild regurgitation. Peak gradient: 6mm Hg (D). LEFT ATRIUM: The atrium was mildly dilated. PULMONIC VALVE: The valve appears to be grossly normal. Doppler: There was no evidence for stenosis. No significant regurgitation. TRICUSPID VALVE: The valve appears to be grossly normal. Doppler: There was no evidence for stenosis. No regurgitation. Patient weight: 232.5lb _Ejection fraction:_ 65-75% _Fractional shortening:_ 32% up to 5Kg 5-11.5Kg 11.6-22.9Kg 23-45Kg 45-57Kg Aortic Root 7-13 <17 13-22 17-27 17-27 LA diam 6-13 <23 24-38 33-47 37-40 RVID 10-17 7-15 7-15 7-18 8-17 LVIDd 12-22 <32 24-38 33-47 37-40 LVPW 2-4 3-6 5-7 6-8 7-8 IVS 2-4 3-6 5-7 6-8 7-8 BASIC MEASUREMENTS ADULT NORMAL Left ventricle LV internal dimension, ED, chordal 49.1 mm 43-52 level, PLAX LV internal dimension, ES, chordal 36.6 mm 23-38 level, PLAX Fractional shortening, chordal level, *25 % >29 PLAX LV posterior wall thickness, ED 8.27 mm IVS/LVPW ratio, ED 0.74 <1.3 Ventricular septum Septal thickness, ED 6.16 mm Aortic valve Leaflet separation 17 mm 15-26 BASIC MEASUREMENTS ADULT NORMAL Aortic valve Leaflet separation 17 mm 15-26 Aorta Root diameter, ED 30 mm 20-37 Left atrium Anterior-posterior dimension, ES *41 mm 19-40 Anterior-posterior dimension index, ES 1.94 cm/m^2 <2.2 LA/aortic root ratio 1.37 DOPPLER MEASUREMENTS ADULT NORMAL Aortic valve Peak velocity, S 126 cm/s Valve area, Vmax 2.92 cm^2 Valve area index, Vmax 1.38 cm^2/m^2 Mitral valve Peak E-wave velocity 125 cm/s Peak A-wave velocity 144 cm/s Deceleration time 197 ms 150-230 Peak gradient, D 6 mm Hg Peak E/A ratio 0.9 Maximal regurgitant velocity 238 cm/s Pulmonic valve Peak velocity, S 89.6 cm/s LEGEND: Mean values are shown as u=mean value. Asterisk (*) blancas values outside specified normal range. Prepared and signed by Saran Reilly [id number]
[2016-09-28] MEDS: cefTRIAXone INJ 1,000 MG in SODIUM CHLORIDE 0.9% INJ 100 ML IV SCH (22:01)
[2016-09-28] MEDS: ATORVASTATIN 80 MG TAB PO SCH (22:01)
[2016-09-28] MEDS: DIPYRIDAMOLE/ASPIRIN 200 MG/25 MG CAP PO SCH (22:02)
[2016-09-28] MEDS: INSULIN DETEMIR 100 UNITS/ML VIAL SQ SCH (22:03)
[2016-09-29] VITALS: BP 119/58; PULSE 87; RESP 19; TEMP 96.8; O2SAT 95
--- NOTE | 2016-09-29 00:01 | EKG ---
Date Performed: 09/27/2016 Time Performed: 13:12:45 PTAGE: 80 years EKG: Sinus rhythm NORMAL ECG PREVIOUS TRACING : 09/23/2016 05.26 DOCTOR: Divya Bass Interpretating Date/Time 09/28/2016 23:51:31
[2016-09-29 04:00] VITALS: BP 126/60; PULSE 72; RESP 19; TEMP 97.6; O2SAT 98
[2016-09-29] MEDS: INSULIN ASPART SUPPLEMENTAL SCALE SQ SCH ×2 (06:07→11:00)
[2016-09-29 07:25] VITALS: PULSE 70
[2016-09-29 08:00] VITALS: BP 144/65; PULSE 82; RESP 18; TEMP 96.9; O2SAT 95
[2016-09-29] MEDS: DIPYRIDAMOLE/ASPIRIN 200 MG/25 MG CAP PO SCH (08:45)
[2016-09-29] MEDS: METOPROLOL TARTRATE 50 MG TAB PO SCH (08:45)
[2016-09-29] MEDS: FENOFIBRATE 48 MG TAB PO SCH (08:45)
[2016-09-29] MEDS: SODIUM CHLORIDE 0.9% FLUSH 5 ML FLUSH FLUSH SCH (08:46)
[2016-09-29] MEDS: NYSTATIN 100,000 UNIT/GM CREAM 15 GM TOPICAL SCH (08:46)
[2016-09-29 09:57] LABS: AUTOMATED NEUTROPHIL # 8.3 TH/MM3 (1.8-7.7); BASOPHIL # 0.1 TH/MM3 (0-0.2); BASOPHIL % 1.1 % (0.0-2.0); EOSINOPHIL # 0.4 TH/MM3 (0-0.4); EOSINOPHIL % 3.3 % (0.0-4.0); HEMATOCRIT 34.8 % (39.0-51.0); HEMO FLAGS DIFF FINAL; LYMPH % 19.2 % (9.0-44.0); LYMPHOCYTE # 2.4 TH/MM3 (1.0-4.8); MEAN CORPUSCULAR HEMOGLOBIN 31.8 PG (27.0-34.0); MEAN CORPUSCULAR HGB CONC 34.2 % (32.0-36.0); MONO % 10.2 % (0.0-8.0); NEUT % 66.2 % (16.0-70.0); PLATELET COUNT 427 TH/MM3 (150-450); RED BLOOD COUNT 3.74 MIL/MM3 (4.50-5.90); RED CELL DISTRIBUTION WIDTH 13.1 % (11.6-17.2); WHITE BLOOD COUNT 12.6 TH/MM3 (4.0-11.0)
[2016-09-29 10:23] LABS: BICARBONATE 26.3 MEQ/L (21.0-32.0); POTASSIUM 3.6 MEQ/L (3.5-5.1)
[2016-09-29 12:00] VITALS: BP 112/56; PULSE 82; RESP 18; TEMP 98.2; O2SAT 95
[2016-09-29 12:30] VITALS: O2SAT 95
--- NOTE | 2016-09-29 12:39 | HHI.PR ---
Subjective Remarks Follow-up left basal ganglionic infarct/groin cellulitis 09/28/16-patient seen and examined, stable no acute event overnight. Currently afebrile. WBC trending down. 09/29/16-patient seen and examined, MRI with evidence of left basal ganglion infarct for which neurology was consulted yesterday. Patient currently denies any complaint. Was working with OT during my exam. by the bedside. Objective Vitals Vital Signs Date Time Temp Pulse Resp B/P Pulse Ox O2 Delivery O2 Flow Rate FiO2 09/29/16 08:00 96.9 82 18 144/65 95 09/29/16 07:25 70 09/29/16 04:00 97.6 72 19 126/60 98 09/29/16 00:00 96.8 87 19 119/58 95 09/28/16 23:00 101 09/28/16 20:14 97.4 104 18 154/69 94 09/28/16 16:39 97.8 83 19 134/61 96 I/O 09/28/16 09/28/16 09/28/16 09/29/16 09/29/16 09/29/16 07:00 15:00 23:00 07:00 15:00 23:00 Intake Total 120 ml 1136 ml 532 ml Output Total 425 ml 450 ml 200 ml 200 ml Balance -305 ml 686 ml 332 ml -200 ml Intake Oral 120 ml 360 ml IV Total 776 ml 532 ml Output Urine Total 425 ml 450 ml 200 ml 200 ml # Voids 3 1 # Bowel Movements 0 1 1 Result Diagram: 09/29/16 0912 09/29/16 0912 Imaging Last Impressions Head Magnetic Resonance Angiography 09/28/16 0000 Signed Impressions: Service Date/Time: Wednesday, September 28, 2016 09:27 - CONCLUSION: Stenotic narrowing involving the P2 portion of right posterior cerebral artery which arises in fashion. Otherwise normal study Guy Hicks MD Brain MRI 09/28/16 0000 Signed Impressions: Service Date/Time: Wednesday, September 28, 2016 09:27 - CONCLUSION: 1. There is a focal acute small infarct in the left basal ganglia. 2. There is bilateral cortical atrophy. 3. There is chronic moderate bilateral white matter changes. Daniel Figueroa MD Chest X-Ray 09/27/16 1510 Signed Impressions: Service Date/Time: Tuesday, September 27, 2016 15:20 - CONCLUSION: No evidence of acute cardiopulmonary disease. Guy Alcaraz MD Head CT 09/27/16 1320 Signed Impressions: Service Date/Time: Tuesday, September 27, 2016 13:44 - CONCLUSION: No significant change has occurred. Ravi Cesar MD Scrotum Ultrasound 09/27/16 0000 Signed Impressions: Service Date/Time: Tuesday, September 27, 2016 15:57 - CONCLUSION: 1. Nonspecific scrotal wall edema and hyperemia with hydrocele fluid. Could be infectious. No drainable fluid within the scrotal wall. 2. No torsion or other acute testicular abnormality. Guy Alcaraz MD Carotid Artery Ultrasound 09/27/16 0000 Signed Impressions: Service Date/Time: Tuesday, September 27, 2016 18:20 - CONCLUSION: Bifurcation atherosclerotic plaque, mild to moderate on the right, mild on the left. No hemodynamically significant narrowing on either side. Guy Alcaraz MD Objective Remarks GENERAL: This is a well-nourished, well-developed patient, in no apparent distress. SKIN: Erythema bilateral groins with satellite lesions extends from just below the pannus to bilateral testicles HEAD: Atraumatic. Normocephalic. No temporal or scalp tenderness. EYES: Extraocular motions intact. No scleral icterus. No injection or drainage. CARDIOVASCULAR: Regular rate and rhythm without murmurs, gallops, or rubs. RESPIRATORY: Clear to auscultation. Breath sounds equal bilaterally. No wheezes , rales, or rhonchi. GASTROINTESTINAL: Abdomen soft, non-tender, nondistended. No guarding. MUSCULOSKELETAL: Extremities without clubbing, cyanosis, or edema. No joint tenderness, effusion, or edema noted. No calf tenderness. Negative Homans sign bilaterally. 3-4 out of 5 right upper extremity 4 out of 5 right lower extremity. NEUROLOGICAL: Awake and alert. Sensory grossly within normal limits. 3-4 out of 5 right upper extremity 4 out of 5 right lower extremity. Normal speech. Procedures None A/P Problem List: (1) CVA (cerebral vascular accident) ICD Code: I63.9 Status: Acute (2) Cellulitis of scrotum ICD Code: N49.2 Status: Acute (3) TIA (transient ischemic attack) ICD Code: G45.9 Status: Acute (4) Generalized weakness ICD Code: R53.1 Status: Acute Assessment and Plan This is a pleasant 80-year-old gentleman with a past medical history which includes hyperlipidemia, CVA, diabetes mellitus type 2, hypertension. Since the emergency department with right-sided weakness and bilateral groin cellulitis superimposed on Yovanny. Leukocytosis 2/2 Cellulitis bilaterally and coronary superimposed on yovanny infection Continue Nystatin cream as well as vancomycin + Rocephin and monitor culture Testicular ultrasound noted with finding of Nonspecific scrotal wall edema and hyperemia with hydrocele fluid CVA-left ganglionic infarct CT of the head with no signs of acute infarct hemorrhage or mass mild atrophy remote left basal ganglia lacunar infarcts Continue Aggrenox as well as atorvastatin and TriCor Physical therapy/OT consultation and case management consult MRI brain with finding of left ganglionic infarct,US bilateral carotid arteries with no hemodynamically significant stenosis, 2-D echocardiogram with 55-60% Discontinue permissive hypertension Neurology consulted and appreciate input Diabetes mellitus type 2 Hold Actos and Glimepiride Decrease Levemir to 10 units daily at bedtime Accu-Cheks before meals at bedtime with sliding scale insulin coverage Hemoglobin A1c 9.5. Mild acute renal failure :Slightly elevated renal indices BUN 21 creatinine 1.71 and GFR 39-now resolved with gentle IV fluid hydration hold Lovenox and Lasix as patient's home medications Avoid all nephrotoxic drugs DVT prophylaxis with SCDs Problem Qualifiers (1) TIA (transient ischemic attack): Qualified Code: G45.9 - Transient cerebral ischemia, unspecified type Hermann Morris MD Sep 29, 2016 12:39
--- NOTE | 2016-09-29 12:46 | HHI.DS ---
Discharge Summary Admission Date Sep 27, 2016 at 15:46 Discharge Date: Sep 29, 2016 Admitting Diagnosis TIA (1) CVA (cerebral vascular accident) ICD Code: I63.9 (2) Cellulitis of scrotum ICD Code: N49.2 (3) TIA (transient ischemic attack) ICD Code: G45.9 (4) Generalized weakness ICD Code: R53.1 Procedures None Brief History - From Admission This is a pleasant 80-year-old gentleman with a past medical history which includes hyperlipidemia, CVA, diabetes mellitus type 2, hypertension. Patient was recently seen in the emergency department last Tuesday after he had right-sided weakness and suffered a fall patient was subsequently discharged home. Patient returns today he reports he has fallen 3 more times and has continued right-sided weakness. Right-sided weakness seems to be getting worse. Patient reports that over the past 3 days he has been having difficulty with ambulation and is unable to hold or grasp objects with the right hand. Patient denies slurred speech or facial asymmetry, headache or visual changes. Patient denies hitting his head on any of these falls and reports he's had no injuries so far. On examining patient is found to have bilateral groin erythema with satellite lesions and an odor consistent with Yovanny. Patient reports this is been present for the past 3 months and does seem to be getting worse. Patient does report moderate pain that comes and goes. Pain is worse when anything touches the skin. At home patient has been trying to keep the area dry and clean but this has not helped it continues to get worse. Patient denies chest pain shortness of breath fevers chills nausea vomiting diarrhea constipation. CBC/BMP: 09/29/16 0912 09/29/16 0912 Significant Findings Laboratory Tests Test 09/27/16 09/28/16 09/29/16 13:35 06:15 09:12 White Blood Count 16.2 TH/MM3 12.4 TH/MM3 12.6 TH/MM3 (4.0-11.0) (4.0-11.0) (4.0-11.0) Red Blood Count 4.09 MIL/MM3 3.82 MIL/MM3 3.74 MIL/MM3 (4.50-5.90) (4.50-5.90) (4.50-5.90) Hematocrit 38.5 % 36.2 % 34.8 % (39.0-51.0) (39.0-51.0) (39.0-51.0) Neutrophils (%) (Auto) 75.8 % (16.0-70.0) Monocytes (%) (Auto) 12.6 % 13.1 % 10.2 % (0.0-8.0) (0.0-8.0) (0.0-8.0) Neutrophils # (Auto) 12.3 TH/MM3 8.3 TH/MM3 (1.8-7.7) (1.8-7.7) Monocytes # (Auto) 2.0 TH/MM3 1.6 TH/MM3 1.3 TH/MM3 (0-0.9) (0-0.9) (0-0.9) Blood Urea Nitrogen 21 MG/DL (7-18) Creatinine 1.71 MG/DL (0.60-1.30) Estimat Glomerular Filtration 39 ML/MIN (>89) 56 ML/MIN (>89) 58 ML/MIN (>89) Rate Random Glucose 189 MG/DL 71 MG/DL (74-106) (74-106) Troponin I LESS THAN 0.02 NG/ML (0.02-0.05) Albumin 3.0 GM/DL (3.4-5.0) Hemoglobin 12.2 GM/DL 11.9 GM/DL (13.0-17.0) (13.0-17.0) Eosinophils (%) (Auto) 4.9 % (0.0-4.0) Eosinophils # (Auto) 0.6 TH/MM3 (0-0.4) Hemoglobin A1c 9.5 % (4.3-6.0) Calcium Level 8.4 MG/DL (8.5-10.1) Cholesterol Level 96 MG/DL (120-200) HDL Cholesterol 26.6 MG/DL (40.0-60.0) Imaging Last Impressions Head Magnetic Resonance Angiography 09/28/16 0000 Signed Impressions: Service Date/Time: Wednesday, September 28, 2016 09:27 - CONCLUSION: Stenotic narrowing involving the P2 portion of right posterior cerebral artery which arises in fashion. Otherwise normal study Guy Hicks MD Brain MRI 09/28/16 0000 Signed Impressions: Service Date/Time: Wednesday, September 28, 2016 09:27 - CONCLUSION: 1. There is a focal acute small infarct in the left basal ganglia. 2. There is bilateral cortical atrophy. 3. There is chronic moderate bilateral white matter changes. Daniel Figueroa MD Chest X-Ray 09/27/16 1510 Signed Impressions: Service Date/Time: Tuesday, September 27, 2016 15:20 - CONCLUSION: No evidence of acute cardiopulmonary disease. Guy Alcaraz MD Head CT 09/27/16 1320 Signed Impressions: Service Date/Time: Tuesday, September 27, 2016 13:44 - CONCLUSION: No significant change has occurred. Ravi Cesar MD Scrotum Ultrasound 09/27/16 0000 Signed Impressions: Service Date/Time: Tuesday, September 27, 2016 15:57 - CONCLUSION: 1. Nonspecific scrotal wall edema and hyperemia with hydrocele fluid. Could be infectious. No drainable fluid within the scrotal wall. 2. No torsion or other acute testicular abnormality. Guy Alcaraz MD Carotid Artery Ultrasound 09/27/16 0000 Signed Impressions: Service Date/Time: Tuesday, September 27, 2016 18:20 - CONCLUSION: Bifurcation atherosclerotic plaque, mild to moderate on the right, mild on the left. No hemodynamically significant narrowing on either side. Guy Alcaraz MD PE at Discharge GENERAL: This is a well-nourished, well-developed patient, in no apparent distress. SKIN: Erythema bilateral groins with satellite lesions extends from just below the pannus to bilateral testicles HEAD: Atraumatic. Normocephalic. No temporal or scalp tenderness. EYES: Extraocular motions intact. No scleral icterus. No injection or drainage. CARDIOVASCULAR: Regular rate and rhythm without murmurs, gallops, or rubs. RESPIRATORY: Clear to auscultation. Breath sounds equal bilaterally. No wheezes , rales, or rhonchi. GASTROINTESTINAL: Abdomen soft, non-tender, nondistended. No guarding. MUSCULOSKELETAL: Extremities without clubbing, cyanosis, or edema. No joint tenderness, effusion, or edema noted. No calf tenderness. Negative Homans sign bilaterally. 3-4 out of 5 right upper extremity 4 out of 5 right lower extremity. NEUROLOGICAL: Awake and alert. Sensory grossly within normal limits. 3-4 out of 5 right upper extremity 4 out of 5 right lower extremity. Normal speech. Hospital Course Patient was admitted secondary to right upper extremity weakness/TIA for which a workup for ischemic stroke protocol was started radiographic studies. Brain MRI was positive for left basal ganglionic infarct and consultation was placed to neurology. Permissive hypertension was initiated and patient treated with statin as well as Plavix and aspirin which were discontinued and patient started on Aggrenox twice a day. PT/OT/PMR were consulted. She was also started on IV antibiotics secondary to bilateral groin cellulitis superimposed on yovanny infection, cultures were monitored. He to mild acute renal failure he was given gentle IV fluid hydration with improvement or renal function. Oral hypoglycemic agents were held and patient was continued on his basal insulin however this would be decreased to 10 units at bedtime secondary to low blood glucose. Treatment for other chronic medical conditions were continued. DVT and GI prophylaxis were provided. Vital remained stable and patient's condition improved at the time of discharge. He will be discharged to [facility] on IV antibiotics including vancomycin and Rocephin Pt Condition on Discharge: Stable Discharge Disposition: Rehab Inpatient Discharge Time: > 30 minutes Discharge Instructions DIET: Follow Instructions for: Diabetic Diet Follow up Referrals: PCP Follow-up New Medications: Atorvastatin (Lipitor) 80 Mg Tab 80 MG PO HS Cholesterol Management #30 TAB Dipyridamole-Aspirin (Aggrenox) 200-25 Mg Cap 1 CAP PO Q12HR Stroke Prevention #60 CAP Insulin Detemir Inj (Levemir Inj) 1,000 unit/ 10 ML Vial 10 UNITS SQ HS Blood Sugar Management #100 INJECTION Nystatin Topical (Nystatin Topical) 100,000 unit/gm Cream 1 APPLIC TOPICAL Q12HR Infection #1 TUBE Continued Medications: Albuterol 8.5 GM Inh (Proair Hfa 8.5 GM Inh) 90 Mcg/Act Aer 2 PUFF INH Q4HR 108 mcg/actuation PRN SHORTNESS OF BREATH #1 Ref 0 INHALER Fenofibrate (Tricor) 145 Mg Tab 145 MG PO DAILY Takw with food. #30 Ref 0 TAB Furosemide (Lasix) 20 Mg Tab 20 MG PO DAILY #30 Ref 0 TAB Lisinopril (Lisinopril) 20 Mg Tab 20 MG PO DAILY #30 Ref 0 TAB Metoprolol Tartrate (Metoprolol Tartrate) 50 Mg Tab 50 MG PO BID #60 Ref 0 TAB Discontinued Medications: Aspirin (Aspirin) 81 Mg Chew 81 MG CHEW DAILY Ref 0 TAB Atorvastatin (Atorvastatin) 80 Mg Tab 80 MG PO HS Cholesterol Management #30 Ref 0 TAB Clopidogrel (Clopidogrel) 75 Mg Tab 75 MG PO DAILY Blood Clot Prevention #30 Ref 0 TAB Glimepiride (Glimepiride) 4 Mg Tab 4 MG PO DAILY Take with breakfast or first main meal Blood Sugar Management #30 Ref 0 TAB Insulin Glargine Inj (Lantus Inj) 1,000 Unit/10 Ml Vial 12 UNITS SQ HS Blood Sugar Management Ref 0 VIAL Pioglitazone (Pioglitazone) 45 Mg Tab 45 MG PO DAILY Blood Sugar Management #30 Ref 0 TAB Hermann Morris MD Sep 29, 2016 12:46
[2016-09-29] MEDS ORDERED: AGGR20025 PO (12:49)
[2016-09-29] MEDS ORDERED: LEVEMIR SQ (12:49)
[2016-09-29] MEDS ORDERED: LIPI80TA PO (12:49)
[2016-09-29] MEDS ORDERED: NYST15T TOPICAL (13:53)
[2016-09-29] MEDS ORDERED: INSULIN DETEMIR 100 UNITS/ML VIAL SQ SCH (21:00)
[2016-09-30] MEDS ORDERED: PHARMACY ORDERED LAB XX ONE (15:45)
[2016-10-13] MEDS ORDERED: AGGR20025 PO (17:03)
[2016-10-13] MEDS ORDERED: ALBUAER3 INH (17:03)
[2016-10-13] MEDS ORDERED: METO50TA PO (17:03)
[2016-10-13] MEDS ORDERED: LISI-515 PO (17:03)
[2016-10-13] MEDS ORDERED: NYST15T TOPICAL (17:03)
[2016-10-13] MEDS ORDERED: LIPI80TA PO (17:03)
[2016-10-13] MEDS ORDERED: FENO50TA PO (17:03)
[2016-10-13] MEDS ORDERED: FURO1TAB62 PO (17:03)
[2016-10-13] MEDS ORDERED: ACET325T PO (17:04)
[2016-10-13] MEDS ORDERED: ARIC5TAB PO (17:04)
[2016-10-13] MEDS ORDERED: LACT PO (17:04)
[2016-10-13] MEDS ORDERED: LEVEMIR SQ (17:04)
[2016-10-13] MEDS ORDERED: DOXY100C PO (17:04)
== END 2016-09-29 16:10 | DRG 69 ==
LOC: NEPA 12:19 → OBSVTOIN 15:46 → NEDA 15:46 → N05A 19:43
PROVIDERS: ADMIT Hospitalist; ATTEND Hospitalist
DX: G45.9 Transient cerebral ischemic attack, unspecified (principal); N17.9 Acute kidney failure, unspecified; L03.314 Cellulitis of groin; E11.9 Type 2 diabetes mellitus without complications; I10 Essential (primary) hypertension; E78.5 Hyperlipidemia, unspecified; B37.2 Candidiasis of skin and nail; N49.2 Inflammatory disorders of scrotum; Z86.73 Personal history of transient ischemic attack (TIA), and cerebral infarction without residual deficits; Z91.81 History of falling
CPT/HCPCS: 70450; 70544; 70551; 71010; 76870; 80048; 80053; 80061; 81001; 82550; 82948; 83036; 84484; 85025; 85610; 85730; 87040; 87804; 90732; 93005; 93306; 93880; 93975; J0696; J1815; J3370; J7030; J7040

== ENCOUNTER 2016-11-01 23:18 | Inpatient (IN) | payer MEDICARE, BC ==
[~2016-11-01 23:18] MED LIST changes: +ACET325T PO; +AGGR20025 PO; -ALBU1AER INH; +ALBUAER3 INH; +ARIC5TAB PO; -ATOR1TAB18 PO; -CLOP75TA PO; +DOXY100C PO; -GLIM4TAB PO; +LACT PO; -LANTUS2P SQ; +LEVEMIR SQ; +LIPI80TA PO; +NYST15T TOPICAL; -PREV30CA36 PO; -SAXA5TAB2 PO
[2016-11-01 23:23] VITALS: BP 112/53; PULSE 77; RESP 16; TEMP 97.4
[2016-11-02] VITALS (20 sets, daily range): BP systolic 82–142; BP diastolic 44–67; PULSE 73–97; RESP 12–18; TEMP 97.3–98.1; O2SAT 95–100
--- NOTE | 2016-11-02 00:01 | RADRPT ---
EXAM DATE/TIME: 11/01/2016 23:36 [facility] COMPARISON: CHEST SINGLE AP, September 27, 2016, 15:20. INDICATIONS : Cough. MEDICAL HISTORY : Hypertension. SURGICAL HISTORY : None. ENCOUNTER: Initial ACUITY: 1 day PAIN SCORE: 0/10 LOCATION: Bilateral chest FINDINGS: A single view of the chest demonstrates the lungs to be symmetrically aerated without evidence of mas s, infiltrate or effusion. The cardiomediastinal contours are unremarkable. Osseous structures are intact. CONCLUSION: Normal examination. Ravi Cesar MD on November 01, 2016 at 23:59 Board Certified Radiologist. This report was verified electronically.
--- NOTE | 2016-11-02 00:14 | PD ---
HPI Chief Complaint: Abnormal Results Time Seen by Provider: 23:27 Travel History International Travel<30 days: No Contact w/Intl Traveler<30days: No Traveled to known affect area: No History of Present Illness HPI The patient is a 81 year old male who presents to the [facility] emergency department with a history of reportedly having abnormal blood work done at his local halfway earlier today, therefore the patient was sent into the emergency department for continued evaluation and treatment. The patient had a basic metabolic profile done that revealed a BUN of 143, creatinine 7.69, GFR of 6, CO2 of 13. The patient according to the electronic medical record last had blood work done at this facility with a BUN and creatinine noted to be 14 and 1.19 respectively on September 30, 2016. The patient arrives awake and alert. He reports that he has not been eating or drinking well. He reports that he last ate yesterday. He reports that he last drank last evening. He reports that he's had diarrhea every morning for the last 3 mornings. He denies having any abdominal pain. He denies having any vomiting. He denies having any chest pain, chest pressure, or shortness of breath. He denies having any difficulties urinating. The patient denies any recent known fevers, neck pain, urinary symptoms, or neurologic symptoms. The patient's primary care physician is Dr. Nance. [facility] Past Medical History Narrative Medical The patient's past medical history is significant for hyperlipidemia, history of cerebrovascular accident, diabetes mellitus, hypertension. The patient was recently admitted to the hospital related to recurrent falling and right-sided weakness and was diagnosed with a left basal ganglion infarct on brain MRI and a scrotal cellulitis related to Vika. Arthritis: No Asthma: No Autoimmune Disease: No Blood Disorders: No Anxiety: No Depression: No Heart Rhythm Problems: No Cancer: No Cardiovascular Problems: Yes High Cholesterol: Yes Chemotherapy: No Chest Pain: Yes Congestive Heart Failure: No COPD: Yes Cerebrovascular Accident: Yes (LEFT CVA WITH RIGHT SIDE WEAKNESS, HX PREVIOUS CVA) Diabetes: Yes Diminished Hearing: No Endocrine: Yes GERD: No Glaucoma: No Genitourinary: Yes Headaches: No Hepatitis: No Hiatal Hernia: No Hypertension: Yes Immune Disorder: No Kidney Stones: No Musculoskeletal: No Neurologic: Yes Psychiatric: No Reproductive: No Respiratory: No Migraines: No Myocardial Infarction: No Radiation Therapy: No Renal Failure: Yes (MILD ACUTE RENAL FAILURE) Seizures: No Sickle Cell Disease: No Sleep Apnea: No Thyroid Disease: No Ulcer: No Past Surgical History Narrative Surgical The patient's past surgical history is significant for a tonsillectomy. Abdominal Surgery: No AICD: No Arteriovenous Shunt: No Cardiac Surgery: No Ear Surgery: No Endocrine Surgery: No Eye Surgery: No Genitourinary Surgery: No Gynecologic Surgery: No Insulin Pump: No Joint Replacement: No Oral Surgery: No Pacemaker: No Thoracic Surgery: No Tonsillectomy: Yes Social History Alcohol Use: Yes (MODERATELY) Tobacco Use: No Substance Use: No Allergies-Medications (Allergen,Severity, Reaction): Coded Allergies: No Known Allergies (Verified , 11/01/16) Reported Meds & Prescriptions Reported Meds & Active Scripts Active Aricept (Donepezil) 5 Mg Tab 5 Mg PO HS 30 Days Doxycycline Hyclate 100 Mg Cap 100 Mg PO BID 7 Days Levemir Inj (Insulin Detemir) 1,000 unit/ 10 ML Vial 20 Units SQ HS 30 Days Acetaminophen 325 Mg Tab 650 Mg PO Q6HR PRN 30 Days Nystatin Topical (Nystatin) 100,000 unit/gm Cream 1 Applic TOPICAL Q12HR Aggrenox (Dipyridamole/Aspirin) 200-25 Mg Cap 1 Cap PO Q12HR Lipitor (Atorvastatin Calcium) 80 Mg Tab 80 Mg PO HS Proair Hfa 8.5 GM Inh (Albuterol Sulfate) 90 Mcg/Act Aer 2 Puff INH Q4HR PRN 108 mcg/actuation Lasix (Furosemide) 20 Mg Tab 20 Mg PO DAILY Metoprolol Tartrate 50 Mg Tab 50 Mg PO BID Tricor (Fenofibrate) 145 Mg Tab 145 Mg PO DAILY Takw with food. Lisinopril 20 Mg Tab 20 Mg PO DAILY Reported Acidophilus Probiotic (Lactobacillus) 1 Mg Tab 1 Tab PO BID Review of Systems Except as stated in HPI: all other systems reviewed are Neg General / Constitutional: No: Fever Eyes: No: Visual changes HENT: No: Headaches, Rhinorrhea, Congestion Cardiovascular: No: Chest Pain or Discomfort Respiratory: No: Cough, Shortness of Breath Gastrointestinal: Positive: Diarrhea, Changes in Bowel Habits, Loss of Appetite , No: Nausea, Vomiting, Abdominal Pain Genitourinary: No: Urgency, Frequency, Dysuria Musculoskeletal: No: Pain Skin: No Rash Neurologic: No: Weakness, Focal Abnormalities, Change in Mentation, Slurred Speech, Sensory Disturbance Psychiatric: No: Depression Endocrine: No: Polydipsia Hematologic/Lymphatic: No: Easy Bruising Physical Exam Narrative General: The patient is a well-developed well-nourished male in no acute distress. Head and Neck exam: Head is normocephalic atraumatic. Eyes: EOMI, pupils are equal round and reactive to light. Nose: Midline septum with pink mucous membranes Mouth: Dentition unremarkable. Tacky mucus membranes. Posterior oropharynx is not erythematous. No tonsillar hypertrophy. Uvula midline. Airway patent. Neck: No palpable lymphadenopathy. No nuchal rigidity. No thyromegaly. Cardiovascular: Regular rate and rhythm without murmurs, gallops, or rubs. Lungs: Clear to auscultation bilaterally. No wheezes, rhonchi, or rales. Abdomen: Soft, tenderness on palpation in the right lateral side of the abdomen between the upper and lower quadrant on deep palpation, no other tenderness on palpation of the suprapubic area and left upper or left lower quadrant of the abdomen no guarding, rebound, or rigidity. Normal bowel sounds are audible. Extremities: No clubbing, cyanosis, or edema. 2+ pulses in all 4 extremities. Back: No spinous process tenderness to palpation. Right-sided CVA tenderness on palpation. Neurologic Exam: Cranial nerves 2-12 were intact on exam. Strength is 5/5 in all 4 extremities. No sensory deficits noted. Skin Exam: No rash noted. Intact skin that is warm and dry. The patient has poor skin turgor. Data Data Last Documented VS Vital Signs Date Time Temp Pulse Resp B/P Pulse Ox O2 Delivery O2 Flow Rate FiO2 11/02/16 01:00 82 17 94/52 98 11/01/16 23:23 97.4 Orders Electrocardiogram (11/01/16 23:30) Complete Blood Count With Diff (11/01/16 23:30) Comprehensive Metabolic Panel (11/01/16 23:30) Creatine Kinase (Cpk) (11/01/16 23:30) Ckmb (Isoenzyme) Profile (11/01/16 23:30) Troponin I (11/01/16 23:30) B-Type Natriuretic Peptide (11/01/16 23:30) Lipase (11/01/16 23:30) Urinalysis - C+S If Indicated (11/01/16 23:30) Magnesium (Mg) (11/01/16 23:30) Chest, Single Ap (11/01/16 23:30) Iv Access Insert/Monitor (11/01/16 23:30) Ecg Monitoring (11/01/16 23:30) Oximetry (11/01/16 23:30) Ct Abd/Pel W/O Iv Contrast (11/02/16 00:14) Sodium Chlorid 0.9% 500 Ml Inj (Ns 500 M (11/02/16 00:45) CKMB (11/02/16 00:00) CKMB% (11/02/16 00:00) Urinary Catheter Insert/Apply (11/02/16 00:41) Admit Order (Ed Use Only) (11/02/16 00:58) Consult Nephrology (11/02/16 ) Labs Laboratory Tests Test 11/02/16 11/02/16 00:00 01:00 White Blood Count 11.8 TH/MM3 Red Blood Count 4.97 MIL/MM3 Hemoglobin 15.5 GM/DL Hematocrit 47.0 % Mean Corpuscular Volume 94.6 FL Mean Corpuscular Hemoglobin 31.1 PG Mean Corpuscular Hemoglobin 32.9 % Concent Red Cell Distribution Width 13.9 % Platelet Count 244 TH/MM3 Mean Platelet Volume 10.3 FL Neutrophils (%) (Auto) 83.2 % Lymphocytes (%) (Auto) 9.3 % Monocytes (%) (Auto) 6.4 % Eosinophils (%) (Auto) 0.4 % Basophils (%) (Auto) 0.7 % Neutrophils # (Auto) 9.8 TH/MM3 Lymphocytes # (Auto) 1.1 TH/MM3 Monocytes # (Auto) 0.8 TH/MM3 Eosinophils # (Auto) 0.0 TH/MM3 Basophils # (Auto) 0.1 TH/MM3 CBC Comment DIFF FINAL Differential Comment Sodium Level 132 MEQ/L Potassium Level 5.1 MEQ/L Chloride Level 96 MEQ/L Carbon Dioxide Level 14.3 MEQ/L Anion Gap 22 MEQ/L Blood Urea Nitrogen 173 MG/DL Creatinine 8.38 MG/DL Random Glucose 186 MG/DL Calcium Level 8.5 MG/DL Magnesium Level 2.4 MG/DL Total Bilirubin 0.5 MG/DL Aspartate Amino Transf 37 U/L (AST/SGOT) Alanine Aminotransferase 27 U/L (ALT/SGPT) Alkaline Phosphatase 41 U/L Total Creatine Kinase 157 U/L Creatine Kinase MB 3.0 NG/ML Troponin I LESS THAN 0.02 NG/ML B-Type Natriuretic Peptide 57 PG/ML Total Protein 7.7 GM/DL Albumin 2.7 GM/DL Lipase 505 U/L Urine Color YELLOW Urine Turbidity CLEAR Urine pH 5.0 Urine Specific [place] 1.014 Urine Protein NEG mg/dL Urine Glucose (UA) TRACE mg/dL Urine Ketones NEG mg/dL Urine Occult Blood NEG Urine Nitrite NEG Urine Bilirubin NEG Urine Urobilinogen LESS THAN 2.0 MG/DL Urine Leukocyte Esterase NEG Urine RBC LESS THAN 1 /hpf Urine WBC LESS THAN 1 /hpf Urine Squamous Epithelial <1 /hpf Cells Urine Bacteria RARE /hpf Urine Mucus FEW /lpf Microscopic Urinalysis Comment CULT NOT INDICATED MDM Medical Decision Making Medical Screen Exam Complete: Yes Emergency Medical Condition: Yes Medical Record Reviewed: Yes Interpretation(s) Last Impressions Abdomen/Pelvis CT 11/02/16 0014 Signed Impressions: Service Date/Time: Wednesday, November 02, 2016 00:45 - CONCLUSION: No acute disease. Ravi Cesar MD Chest X-Ray 11/01/16 1600 Signed Impressions: Service Date/Time: Tuesday, November 01, 2016 23:36 - CONCLUSION: Normal examination. Ravi Cesar MD Differential Diagnosis Acute renal failure, versus laboratory error, versus electrolyte abnormality Narrative Course During the course of the patients emergency department visit, the patients history, examination, and differential diagnosis were reviewed with the patient. The patient had IV access obtained and blood work sent for analysis. The patient was placed on a compliance monitor with oximetry and blood pressure monitoring. An EKG was done on arrival. The patient's EKG shows a sinus rhythm heart rate of 82, no acute ST segment changes are noted. No peak T waves , QRS duration is 94 ms, QTC 429 ms. The patient was provided normal saline a 500 mL bolus 1. The patients laboratory studies were reviewed and remarkable for a white count of 11 with a neutrophil predominance. CMP is remarkable for a BUN of 173 and a creatinine of 8.3. Potassium is 5.1. Given these findings, the patient had a Sanchez catheter placed to gravity to rule out an obstructive cause of his renal failure and to monitor closely his urine output. Lipase is noted to be elevated in the 500s, however this could certainly be related to the patient's renal failure. A consultation was placed for the mesh man to evaluate the patient's acute renal failure while the patient is in the hospital. Radiology studies were reviewed and remarkable for a chest x-ray that is unremarkable. CT scan of the abdomen and pelvis shows no acute abnormality. The patients results were discussed with the patient, including the plan of care. I explained that further testing and/ or monitoring is indicated based on the patients history, examination, and/ or laboratory findings. Therefore, I recommended admission for additional evaluation. The patient expressed understanding and was agreeable with this plan. The patient was admitted to the hospital in stable condition and sent to a bed under the [facility] of [facility]. Physician Communication Physician Communication The patient's case is discussed with Guy Mccullough who did agree to admit the patient to the [facility] group for continued evaluation and treatment. Diagnosis Primary Impression: Acute renal failure Qualified Code: N17.9 - Acute renal failure, unspecified acute renal failure type Admitting Information Admitting Physician Requests: Trixie Ramirez MD Nov 02, 2016 00:14
[2016-11-02 00:27] LABS: AUTOMATED NEUTROPHIL # 9.8 TH/MM3 (1.8-7.7); BASOPHIL # 0.1 TH/MM3 (0-0.2); BASOPHIL % 0.7 % (0.0-2.0); EOSINOPHIL % 0.4 % (0.0-4.0); HEMO FLAGS DIFF FINAL; LYMPH % 9.3 % (9.0-44.0); LYMPHOCYTE # 1.1 TH/MM3 (1.0-4.8); MEAN CELL VOLUME 94.6 FL (80.0-100.0); MEAN CORPUSCULAR HEMOGLOBIN 31.1 PG (27.0-34.0); MEAN CORPUSCULAR HGB CONC 32.9 % (32.0-36.0); MONO % 6.4 % (0.0-8.0); NEUT % 83.2 % (16.0-70.0); PLATELET COUNT 244 TH/MM3 (150-450); RED BLOOD COUNT 4.97 MIL/MM3 (4.50-5.90); RED CELL DISTRIBUTION WIDTH 13.9 % (11.6-17.2); WHITE BLOOD COUNT 11.8 TH/MM3 (4.0-11.0)
[2016-11-02 00:35] LABS: ALT (GPT) 27 U/L (12-78); ANION GAP 22 MEQ/L (5-15); AST (GOT) 37 U/L (15-37); BICARBONATE 14.3 MEQ/L (21.0-32.0); CHLORIDE 96 MEQ/L (98-107); MAGNESIUM 2.4 MG/DL (1.5-2.5); POTASSIUM 5.1 MEQ/L (3.5-5.1); SODIUM (NA) 132 MEQ/L (136-145)
[2016-11-02 00:39] LABS: ALKALINE PHOSPHATASE 41 U/L (45-117); BLOOD UREA NITROGEN 173 MG/DL (7-18); CREATINE KINASE 157 U/L (39-308); TOTAL BILIRUBIN ADULT 0.5 MG/DL (0.2-1.0)
[2016-11-02] MEDS ORDERED: SODIUM CHLORID 0.9% 500 ML INJ 500 ML IV ONE (00:45)
--- NOTE | 2016-11-02 01:08 | RADRPT ---
EXAM DATE/TIME: 11/02/2016 00:45 [facility] COMPARISON: No previous studies available for comparison. INDICATIONS : Weakness for 1 week with abnormal labs. ORAL CONTRAST: No oral contrast ingested. RADIATION DOSE: 16.07 CTDIvol (mGy) MEDICAL HISTORY : Hypertension. Diabetes mellitus type 2. Diabetes mellitus type 2.Renal failure SURGICAL HISTORY : None. ENCOUNTER: Initial ACUITY: 1 week PAIN SCALE: 0/10 LOCATION: abdomen TECHNIQUE: Volumetric scanning of the abdomen and pelvis was performed. Using automated exposure control and ad justment of the mA and/or kV according to patient size, radiation dose was kept as low as reasonably achievable to obtain optimal diagnostic quality images. FINDINGS: Calcification of the mitral annulus is noted and coronary artery calcification. Liver, spleen, pancre as, adrenal glands, bilateral kidneys are normal in appearance. Cholelithiasis is suspected. Atherosc lerotic calcifications of the aorta and iliac vessels are noted. Urinary bladder is unremarkable. No evidence of bowel obstruction. There are degenerative changes of the spine seen. No inflammatory olea ges are identified within the abdomen and pelvis. Small fat containing diaphragmatic hernia left lung base. Osseous structures demonstrate degenerative changes of the spine. CONCLUSION: No acute disease. Ravi Cesar MD on November 02, 2016 at 1:04 Board Certified Radiologist. This report was verified electronically.
[2016-11-02 01:15] LABS: BACTERIA, URINE RARE /hpf; BLOOD, URINE NEG (NEG); COMMENT (UR) CULT NOT INDICATED; CULTURE IF INDICATED CULT NOT INDICATED; GLUCOSE,URINE TRACE mg/dL (NEG); KETONE, URINE NEG (NEG); MUCUS URINE FEW /lpf (OCC); NITRITE,URINE NEG (NEG); SQUAMOUS EPITHELIAL CELL URINE <1 /hpf (0-5); URINE COLOR YELLOW (YELLW/STRAW)
[2016-11-02] MEDS ORDERED: ACIDCAP PO (01:21)
[2016-11-02] MEDS ORDERED: SODIUM CHLOR 0.9% 1000 ML INJ 1,000 ML IV SCH (01:22)
[2016-11-02] MEDS ORDERED: ACETAMINOPHEN 325 MG TAB PO PRN ×2 (01:30→09:00)
[2016-11-02] MEDS ORDERED: BISACODYL 10 MG SUPP PR PRN (01:30)
[2016-11-02] MEDS ORDERED: ONDANSETRON HCL 4 MG/2 ML VIAL IVP PRN (01:30)
[2016-11-02] MEDS ORDERED: DEXTROSE 50% IN WATER 50 ML VIAL(D50) IV PUSH PRN (01:30)
[2016-11-02] MEDS ORDERED: GLUCAGON 1 MG/ML VIAL OTHER PRN (01:30)
[2016-11-02] MEDS ORDERED: SODIUM CHLORIDE 0.9% FLUSH 5 ML FLUSH FLUSH PRN (01:30)
[2016-11-02] MEDS ORDERED: NALOXONE HCL 0.4 MG/ML AMP IV PRN (01:30)
[2016-11-02] MEDS ORDERED: SENNOSIDES 8.6 MG TAB PO PRN (01:30)
[2016-11-02] MEDS ORDERED: SODIUM CHLOR 0.9% 1000 ML INJ 1,000 ML IV ONE (01:45)
[2016-11-02] MEDS: PANTOPRAZOLE SODIUM 40 MG VIAL IV PUSH SCH (04:36)
[2016-11-02] MEDS: HEPARIN SODIUM - SQ 10,000 UNITS/ML VIAL SQ SCH ×2 (04:36→12:32)
--- NOTE | 2016-11-02 05:26 | MH ---
cc: YUE ANGULO DATE OF ADMISSION: 11/02/[address] Guy Nance. CHIEF COMPLAINT Lower abdominal discomfort, abnormal labs. HISTORY OF PRESENT ILLNESS This is a pleasant 81-year-old male who had a recent stroke in early September. He has been in rehab. He was not feeling well. He had labs done at the rehab which showed a BUN of 143 and creatinine of 7.69 and he was sent to hospital. He is a little bit forgetful. He was having some discomfort in the suprapubic area but this has been alleviated since he has had a Sanchez catheter (but he has not had much urine out, about 150 cc). The patient told the ER physician that he had been having some loose stool for the last three mornings; however, when I questioned him, he denied having any diarrhea. He states the last bowel movement was yesterday and was normal formed and without blood or black in it. He denies nausea or vomiting. He denies fever or chills. He denies excessive sweating. He believes his appetite to be fairly stable. He is still making urine. He is not having any flank pain or upper abdominal pain. He is not having chest pain or shortness of breath and he is not aware of any specific changes in his overall health. MEDICATIONS ON ADMISSION Please see the chart. ALLERGIES No known drug allergies. PAST MEDICAL HISTORY Significant for - 1. Stroke. 2. Diabetes mellitus. 3. Hypertension. 4. Hyperlipidemia. PAST SURGICAL HISTORY Tonsillectomy. SOCIAL HISTORY . No tobacco or substance abuse. Alcohol - admits to one drink most days of the week. FAMILY HISTORY Stroke and heart disease are in the family. REVIEW OF SYSTEMS The patient denies any other specific findings in the review of systems other than feeling a little run down. He also notes that his balance is a little off and he has some difficulty ambulating but he is getting physical therapy for this, although he does not feel like it is helping him much. The patient denies any other specific changes. PHYSICAL EXAMINATION VITAL SIGNS: The last set of vital signs show him being afebrile, heart rate 77, respirations 16, blood pressure 112/53. GENERAL: This is a 81-year-old male resting comfortably in bed. He is in no acute distress. HEENT: Mucous membranes were mildly dry. There is no jaundice. NECK: Supple. CARDIOVASCULAR SYSTEM: Respiratory rate. RESPIRATORY SYSTEM: Lungs are clear to auscultation bilaterally. GASTROINTESTINAL: Bowel sounds are present. There is no tenderness, guarding, rebound or distention. GENITOURINARY SYSTEM: A Sanchez catheter is in place. No suprapubic tenderness, no CVA tenderness. MUSCULOSKELETAL SYSTEM: No edema. Sami's is negative. Distal pulse are palpable. NEUROLOGIC EXAM: The patient is awake, alert and generally oriented. He knows the year, the month. He did not know the day or the date. He can tell me who the president is. Speech is clear and fluent. His tongue is midline. EOMs are grossly intact. Manager Event is 5/5. He has very mild tremors in his upper extremities. Straight leg raise is negative bilaterally. Dorsi and plantar flexion are 5/5. Gait and station is not tested. INVESTIGATIONS White count is 11.8, hemoglobin is 15.5, platelets are 244. Sodium is 132, potassium is 5.1. C02 is 14.3. Anion gap was 22. BUN is 173, creatinine is 8.38. Glucose is 186. Troponin T is negative. Albumin is 2.7, lipase is 505. Urinalysis shows bacteria rare, a few mucus, otherwise negative. RADIOLOGY Chest x-ray - Normal examination. CT OF THE ABDOMEN AND PELVIS No acute disease. IMPRESSION 1. Acute renal failure. 2. Hyponatremia. 3. Metabolic acidosis. 4. Malnutrition. 5. Elevated lipase. 6. Diabetes mellitus. 7. Recent CVA. 8. Leukocytosis. 9. History of hypertension. 10. Hyperlipidemia. 11. Tonsillectomy. DISCUSSION The patient is admitted to Dr. Yue Angulo's service. The patient meets inpatient criteria due to the severity of his renal failure without which hospitalization he would be at a high risk of going into shock or even dying. During his hospital stay he will be hydrated, labs will be monitored. We will consult Nephrology. We will adjust his home medications based on his renal function. DVT prophylaxis will be provided. We will start him on a chronic liver disease, follow up lipase in the morning and advance diet as tolerated. We will maintain the Sanchez catheter for accurate I&Os and we will make further recommendations as his case progresses. Estimated length of stay is 4-5 days. Anticipated discharge is back to rehab. Dictated by: Fer Mccullough PA-C Yue Angulo MD JP/JERAD /2:04 AM /5:04 AM pt seen and examined face to face time spent with pt labs rad data and meds reviewed plan of care dw general supervisor dw pt BRIGETTED
[2016-11-02] MEDS: INSULIN ASPART SUPPLEMENTAL SCALE SQ SCH ×4 (06:47→21:04)
[2016-11-02] MEDS: SODIUM CHLORIDE 0.9% FLUSH 5 ML FLUSH FLUSH SCH ×2 (09:00→21:04)
[2016-11-02] MEDS: NYSTATIN 100,000 UNIT/GM CREAM 15 GM TOPICAL SCH ×2 (09:00→21:00)
[2016-11-02] MEDS: METOPROLOL TARTRATE 50 MG TAB PO SCH ×2 (09:00→21:01)
[2016-11-02] MEDS ORDERED: ALBUTEROL SULFATE 90 MCG/ACT HFA 8 GM INHALER INH PRN (09:00)
--- NOTE | 2016-11-02 09:52 | MB ---
cc: ANABELL MENG MD DATE OF CONSULTATION 11/02/2016 REASON FOR CONSULTATION Elevated BUN and creatinine for evaluation. HISTORY OF PRESENT ILLNESS This is a 81-year-old male with a past medical history of diabetes mellitus, hypertension, chronic kidney disease, history of stroke, hyperlipidemia who was brought to the hospital with a complaint of weakness and abdominal pain. I was called to see the patient because of a very high BUN and creatinine. The patient has a history of chronic kidney disease and his creatinine before was 1.3. This was last month and now he came with a BUN of 173 and creatinine of 8.38. The patient denies any known history of renal disease. He was not seen by any large animal veterinarian before, but according to him when he was admitted to [facility], he was told that he had some kidney dysfunction. The patient has been feeling weak and tired at home. According to him, he has been eating normal, but has some loose bowel motion usually two to three times per day. He has a suprapubic catheter and there was some decrease in the urine output, but the urine output has been improving since he was given an IV fluid bolus. When the patient came in here, he was found to have blood pressure on the lower side and the lowest recorded is 94/52. He denies any vomiting. Denies any history of taking any nonsteroidal anti-inflammatory drugs. He lives with his . There is no history of fever. He has some lower abdominal pain which is mainly cramping. PAST MEDICAL HISTORY 1. Hypertension 2. Diabetes mellitus 3. Chronic kidney disease 4. Hyperlipidemia 5. History of stroke. PAST SURGICAL HISTORY History of tonsillectomy. REVIEW OF SYSTEMS Denies any history of fever. Has generalized weakness, decreased appetite. Has loose bowel motion two to three per day. He has lower abdominal pain. No history of vomiting. No dysuria. Occasionally has difficulty passing urine. Not taking any nonsteroidal anti-inflammatory drugs. SOCIAL HISTORY The patient lives with his and daughter. There is no history of smoking or alcoholism. FAMILY HISTORY Noncontributory ALLERGIES He has NO KNOWN DRUG ALLERGIES. MEDICATIONS Currently he is on: 1. Normal saline 100 an hour 2. Lactinex 1 tablet b.i.d. 3. Metoprolol 50 mg b.i.d. 4. Tricor 145 mg once a day 5. Lipitor 80 mg q.h.s. 6. Aricept 5 mg q.h.s. 7. Heparin 5000 subcu q. 12-hour 8. Aggrenox 1 capsule q. 12-hour 9. Nystatin local 10. Protonix 40 mg IV q. 24-hour 11. Insulin as per sliding scale 12. Zofran as needed PHYSICAL EXAM On examination, the patient is awake and alert. He is not in acute distress. VITAL SIGNS: His last blood pressure was 98/44, temperature is 97.4, oxygen saturation on room air is 99-100%. HEAD, EYES, EARS, NOSE, AND THROAT: Pupils equally reacting to light. Nonicteric sclera, conjunctiva pale. NECK: Supple. JVD is not elevated. LUNGS: The patient has bilateral decreased air entry with occasional wheezing. HEART: S1, S2, regular rhythm. ABDOMEN: Distended, soft and lax. There is no tenderness. Bowel sounds positive. EXTREMITIES: There is no pedal edema. INVESTIGATIONS WBC count is a 11.8, hemoglobin 15.5, platelet of 244, neutrophils 83.2%. Sodium 132, potassium 5.1, chloride 96, bicarb 14.3, BUN 173, creatinine 8.38, AST/ALT normal, alkaline phosphatase 41, trop I is less than 0.02, albumin is 2.7, total protein 7.7, lipase is 551. Urinalysis is showing trace protein. IMAGING STUDIES The patient has a CT scan of the abdomen and pelvis done which shows calcification of the mitral annulus. Kidneys, as mentioned, are normal in appearance. is suspected. Degenerative changes in the spine. Chest x-ray was done which shows that he has a normal examination. ASSESSMENT/PLAN 1. Acute kidney injury 2. Hypotension and dehydration 3. Metabolic acidosis 4. Leukocytosis 5. Diabetes mellitus 6. History of hypertension The patient has very high BUN as compared to the creatinine and most likely this is prerenal azotemia with underlying chronic kidney disease either because of hypertensive or diabetic nephropathy. The CT scan did not show any obstructive uropathy. He previously had ultrasound of the kidneys done and has minimal proteinuria. I will just check the basic serology to make sure they are not missing anything else and I will change IV fluid and give him some bicarb since the bicarbonate is also low and check the lactic acid. Thank you for the consultation. I will follow the patient while he is in the hospital. MD GRETCHEN English/GEE /9:23 AM /9:34 AM
[2016-11-02] MEDS: SODIUM BICARBONATE 8.4% INJ 75 MEQ in SODIUM CHLOR 0.45% 1000 ML INJ 1,000 ML IV SCH ×2 (11:23→20:15)
[2016-11-02] MEDS: FENOFIBRATE 145 MG TAB PO SCH (11:25)
[2016-11-02] MEDS: LACTOBACILLUS ACIDOPHILUS TAB PO SCH ×2 (11:25→21:01)
[2016-11-02] MEDS ORDERED: DO NOT ADM ANY ANTICOAGULANT DRUGS XX PRN (12:25)
[2016-11-02] MEDS: DIPYRIDAMOLE/ASPIRIN 200 MG/25 MG CAP PO SCH ×2 (12:29→21:01)
[2016-11-02 13:22] LABS: TOTAL PROTEIN SPE 7.7 GM/DL (6.0-7.6)
[2016-11-02 13:50] LABS: ALBUMIN SPE 3.09 GM/DL (3.50-5.00); ALPHA 1 GLOBULIN 0.6 GM/DL (0.11-0.29); ALPHA 2 GLOBULIN 1.57 GM/DL (0.22-1.00); BETA GLOBULINS (SPE) 1.46 GM/DL (0.53-1.03)
[2016-11-02 15:45] LABS: C. DIFF EPI 027 PRESUMPTIVE POSITIVE (NEGATIVE); C. DIFF TOXIN PCR POSITIVE (NEGATIVE)
--- NOTE | 2016-11-02 17:31 | EKG ---
Date Performed: 11/01/2016 Time Performed: 23:49:49 PTAGE: 81 years EKG: Sinus rhythm Since previous tracing, no significant change noted NORMAL ECG PREVIOUS TRACING : 09/27/2016 13.12 DOCTOR: Jamar Morse Interpretating Date/Time 11/02/2016 17:29:45
[2016-11-02] MEDS: DONEPEZIL HCL 5 MG TAB PO SCH (21:01)
[2016-11-02] MEDS: ATORVASTATIN 80 MG TAB PO SCH (21:01)
[2016-11-03] VITALS (21 sets, daily range): BP systolic 97–143; BP diastolic 41–70; PULSE 68–116; RESP 18–20; TEMP 96–98.3; O2SAT 95–98
[2016-11-03] MEDS ORDERED: SODIUM CHLOR 0.9% 1000 ML INJ 1,000 ML IV ONE (02:00)
[2016-11-03] MEDS: PANTOPRAZOLE SODIUM 40 MG VIAL IV PUSH SCH (02:47)
[2016-11-03] MEDS: HEPARIN SODIUM - SQ 10,000 UNITS/ML VIAL SQ SCH ×2 (02:47→13:15)
[2016-11-03 06:59] LABS: AUTOMATED NEUTROPHIL # 8.6 TH/MM3 (1.8-7.7); BASOPHIL % 0.3 % (0.0-2.0); EOSINOPHIL # 0.3 TH/MM3 (0-0.4); EOSINOPHIL % 2.6 % (0.0-4.0); HEMATOCRIT 31.7 % (39.0-51.0); HEMO FLAGS DIFF FINAL; LYMPH % 10.6 % (9.0-44.0); LYMPHOCYTE # 1.1 TH/MM3 (1.0-4.8); MEAN CELL VOLUME 93.1 FL (80.0-100.0); MEAN CORPUSCULAR HEMOGLOBIN 31.9 PG (27.0-34.0); MEAN CORPUSCULAR HGB CONC 34.3 % (32.0-36.0); NEUT % 79.5 % (16.0-70.0); PLATELET COUNT 252 TH/MM3 (150-450); RED BLOOD COUNT 3.41 MIL/MM3 (4.50-5.90); RED CELL DISTRIBUTION WIDTH 14.2 % (11.6-17.2); WHITE BLOOD COUNT 10.8 TH/MM3 (4.0-11.0)
[2016-11-03] MEDS: INSULIN ASPART SUPPLEMENTAL SCALE SQ SCH ×4 (07:00→21:00)
[2016-11-03 07:45] LABS: BICARBONATE 20.6 MEQ/L (21.0-32.0); POTASSIUM 3.6 MEQ/L (3.5-5.1)
[2016-11-03] MEDS: SODIUM CHLORIDE 0.9% FLUSH 5 ML FLUSH FLUSH SCH ×2 (08:43→21:16)
[2016-11-03] MEDS: LACTOBACILLUS ACIDOPHILUS TAB PO SCH ×2 (08:44→21:15)
[2016-11-03] MEDS: METOPROLOL TARTRATE 50 MG TAB PO SCH ×2 (08:44→21:15)
[2016-11-03] MEDS: FENOFIBRATE 145 MG TAB PO SCH (08:44)
[2016-11-03] MEDS: DIPYRIDAMOLE/ASPIRIN 200 MG/25 MG CAP PO SCH ×2 (08:44→21:15)
[2016-11-03] MEDS: NYSTATIN 100,000 UNIT/GM CREAM 15 GM TOPICAL SCH ×2 (09:00→21:16)
[2016-11-03] MEDS ORDERED: PNEUMOCOCCAL POLYVALENT INJ 25 MCG/0.5 ML SYR IM ONE (10:00)
[2016-11-03] MEDS: SODIUM BICARBONATE 8.4% INJ 75 MEQ in SODIUM CHLOR 0.45% 1000 ML INJ 1,000 ML IV SCH ×2 (12:17→22:03)
--- NOTE | 2016-11-03 14:26 | HHI.PR ---
Subjective Remarks Patient is feeling tired and weak No other complaint Alert oriented No pain No shortness of breath No nausea vomiting Review of systems a 12 point system otherwise unremarkable Objective Objective Results - Vital Signs Date Time Temp Pulse Resp B/P Pulse Ox O2 Delivery O2 Flow Rate FiO2 11/03/16 09:00 98 11/03/16 08:00 88 11/03/16 07:00 78 11/03/16 06:00 84 11/03/16 05:00 83 11/03/16 04:00 82 11/03/16 03:00 98.1 86 18 97/41 97 11/03/16 03:00 89 11/03/16 02:00 86 11/03/16 01:00 86 11/03/16 00:00 88 11/02/16 23:00 97.9 97 18 82/47 95 Automatic Cuff 11/02/16 23:00 92 11/02/16 22:00 86 11/02/16 21:00 90 11/02/16 20:02 84 11/02/16 19:00 82 11/02/16 19:00 97.7 84 16 104/67 98 11/02/16 18:10 80 11/02/16 17:00 82 11/02/16 16:35 98.1 80 14 120/50 98 11/02/16 16:11 73 11/02/16 15:13 84 11/02/16 14:30 86 I/O 11/02/16 11/02/16 11/02/16 11/03/16 11/03/16 11/03/16 07:00 15:00 23:00 07:00 15:00 23:00 Intake Total 480 ml Output Total 160 ml 1400 ml Balance -160 ml -920 ml Intake Oral 480 ml Output Urine Total 160 ml 1400 ml # Voids 0 # Bowel Movements 2 Result Diagram: 11/03/16 0620 11/03/16 06 Other Results Laboratory Tests Test 11/03/16 06:20 White Blood Count 10.8 Red Blood Count 3.41 Hemoglobin 10.9 Hematocrit 31.7 Mean Corpuscular Volume 93.1 Mean Corpuscular Hemoglobin 31.9 Mean Corpuscular Hemoglobin 34.3 Concent Red Cell Distribution Width 14.2 Platelet Count 252 Mean Platelet Volume 10.3 Neutrophils (%) (Auto) 79.5 Lymphocytes (%) (Auto) 10.6 Monocytes (%) (Auto) 7.0 Eosinophils (%) (Auto) 2.6 Basophils (%) (Auto) 0.3 Neutrophils # (Auto) 8.6 Lymphocytes # (Auto) 1.1 Monocytes # (Auto) 0.8 Eosinophils # (Auto) 0.3 Basophils # (Auto) 0.0 CBC Comment DIFF FINAL Differential Comment Sodium Level 140 Potassium Level 3.6 Chloride Level 106 Carbon Dioxide Level 20.6 Anion Gap 13 Blood Urea Nitrogen 140 Creatinine 5.37 Estimat Glomerular Filtration 10 Rate Random Glucose 150 Calcium Level 7.5 Physical Exam Physical Exam VITAL SIGNS: Reviewed GENERAL: This is a 81-year-old male resting comfortably in bed. He is in no acute distress. HEENT: Mucous membranes were mildly dry. There is no jaundice. NECK: Supple. CARDIOVASCULAR SYSTEM: Controlled rate. RESPIRATORY SYSTEM: Lungs are clear to auscultation bilaterally. GASTROINTESTINAL: Bowel sounds are present. There is no tenderness, guarding, rebound or distention. GENITOURINARY SYSTEM: A Sanchez catheter is in place. No suprapubic tenderness, no CVA tenderness. MUSCULOSKELETAL SYSTEM: No edema. Sami's is negative. Distal pulse are palpable. NEUROLOGIC EXAM: The patient is awake, alert and oriented 3 . Speech is clear and fluent. His tongue is midline. EOMs are grossly intact. Recruitment And Outreach Assistant is 5/5. He has very mild tremors in his upper extremities. Straight leg raise is negative bilaterally. Dorsi and plantar flexion are 5/5. Gait and station is not tested. A/P Assessment and Plan 1. Acute renal failure. 2. Hyponatremia. 3. Metabolic acidosis. 4. Malnutrition. 5. Elevated lipase. 6. Diabetes mellitus. 7. Recent CVA. 8. Leukocytosis. 9. History of hypertension. 10. Hyperlipidemia. 11. Tonsillectomy. DISCUSSION Labs reviewed Improving renal function Appreciate nephrology input Anemia of hydration and [place] better WBC count Metabolic acidosis is improving Hyponatremia better Uncontrolled sugar Increase lipase without any symptomatology Positive C. difficile. Will put patient on by mouth vancomycin Monitor blood pressure Monitor sugar Tolerating diet monitor I's and O's Radiology report reviewed Discussed with patient in detail Continue home medication as indicated Is cussed with RN Plan for physical therapy Encourage activity out of bed Plan for labs tomorrow morning Kirsten Reed MD Nov 03, 2016 14:25
--- NOTE | 2016-11-03 16:09 | HHI.NPPN ---
Subjective History of Present Illness 81-year-old male with a past medical history of diabetes mellitus, hypertension, chronic kidney disease, history of stroke, hyperlipidemia who was brought to the hospital with a complaint of weakness and abdominal pain. I was called to see the patient because of a very high BUN and creatinine. The patient has a history of chronic kidney disease and his creatinine before was 1.3. Additional Remarks Patient is alert, no SOB, feeling better. Review of Systems General Constitutional: Fatigue Cardiovascular Cardiac: ALLISON Objective Data Data 11/02/16 11/03/16 19:00 07:00 Intake Total 480 ml Output Total 160 ml 1400 ml Balance -160 ml -920 ml Intake Oral 480 ml Output Urine Total 160 ml 1400 ml # Voids 0 # Bowel Movements 2 Vital Signs Date Time Temp Pulse Resp B/P Pulse Ox O2 Delivery O2 Flow Rate FiO2 11/03/16 09:00 98 11/03/16 08:00 88 11/03/16 07:00 78 11/03/16 06:00 84 11/03/16 05:00 83 11/03/16 04:00 82 11/03/16 03:00 98.1 86 18 97/41 97 11/03/16 03:00 89 11/03/16 02:00 86 11/03/16 01:00 86 11/03/16 00:00 88 11/02/16 23:00 97.9 97 18 82/47 95 Automatic Cuff 11/02/16 23:00 92 11/02/16 22:00 86 11/02/16 21:00 90 11/02/16 20:02 84 11/02/16 19:00 82 11/02/16 19:00 97.7 84 16 104/67 98 11/02/16 18:10 80 11/02/16 17:00 82 11/02/16 16:35 98.1 80 14 120/50 98 11/02/16 16:11 73 -: 11/03/16 0620 11/03/16 0620 Physical Exam General Appearance: No Acute Distress, Comfortable Eyes Eye Exam: Pupils Equal Neck Neck Exam: Neck Supple Pulmonary Resp Exam: Breath Sounds Equal, No Distress, Rhonchi, Decreased Bases, Diminished Breath Sounds Cardiology CV Exam: Regular, Normal Sinus Rhythm Gastrointestinal/Abdomen GI Exam: Soft, Non-Tender, Bowel Sounds Present Extremeties Extremities Exam: No Edema Neurologic Neuro Exam: Alert, Awake Psychiatric Psych Exam: Appropriate Responses Assessment/Plan Assessment Summary: NASREEN/Acute Renal Failure, Dehydration, Hypotension, CKD Stage III Electrolyte Assessment: Metabolic Acidosis Problem List: (1) Hyperlipemia (2) Hypertension (3) Generalized weakness (4) DM (diabetes mellitus), type 2 (5) History of TIA (transient ischemic attack) and stroke (6) Stage 3 chronic kidney disease (7) Acute renal failure Plan Patient has been non oliguric. Acidosis is better, BP is improving. BUN and Creatinine better. Most likely has NASREEN due to ATN/ands or pre renal. Continue IVF with NaHco3. Avoid Nephrotoxins, follow urine out put and BMP. Problem Qualifiers (1) Acute renal failure: Qualified Code: N17.9 - Acute renal failure, unspecified acute renal failure type Geo Valladares MD Nov 03, 2016 16:09
[2016-11-03] MEDS: ATORVASTATIN 80 MG TAB PO SCH (21:15)
[2016-11-03] MEDS: DONEPEZIL HCL 5 MG TAB PO SCH (21:15)
[2016-11-04] VITALS (22 sets, daily range): BP systolic 101–147; BP diastolic 49–77; PULSE 68–102; RESP 16–20; TEMP 96.1–98.4; O2SAT 95–98
[2016-11-04] MEDS: PANTOPRAZOLE SODIUM 40 MG VIAL IV PUSH SCH (02:14)
[2016-11-04] MEDS: HEPARIN SODIUM - SQ 10,000 UNITS/ML VIAL SQ SCH ×2 (02:14→14:18)
[2016-11-04] MEDS: SODIUM BICARBONATE 8.4% INJ 75 MEQ in SODIUM CHLOR 0.45% 1000 ML INJ 1,000 ML IV SCH ×3 (04:30→21:23)
[2016-11-04 06:25] LABS: HEMATOCRIT 32.5 % (39.0-51.0); MEAN CELL VOLUME 93.1 FL (80.0-100.0); MEAN CORPUSCULAR HEMOGLOBIN 31.1 PG (27.0-34.0); MEAN CORPUSCULAR HGB CONC 33.4 % (32.0-36.0); PLATELET COUNT 264 TH/MM3 (150-450); RED BLOOD COUNT 3.49 MIL/MM3 (4.50-5.90); RED CELL DISTRIBUTION WIDTH 13.9 % (11.6-17.2); REVIEW FLAG FINAL; WHITE BLOOD COUNT 13.9 TH/MM3 (4.0-11.0)
[2016-11-04] MEDS: INSULIN ASPART SUPPLEMENTAL SCALE SQ SCH ×4 (07:00→21:00)
[2016-11-04 07:09] LABS: BICARBONATE 20.6 MEQ/L (21.0-32.0); POTASSIUM 3.7 MEQ/L (3.5-5.1)
[2016-11-04] MEDS: SODIUM CHLORIDE 0.9% FLUSH 5 ML FLUSH FLUSH SCH ×2 (08:09→21:23)
[2016-11-04] MEDS: METOPROLOL TARTRATE 50 MG TAB PO SCH ×2 (08:09→21:23)
[2016-11-04] MEDS: FENOFIBRATE 145 MG TAB PO SCH (08:09)
[2016-11-04] MEDS: LACTOBACILLUS ACIDOPHILUS TAB PO SCH ×2 (08:09→21:23)
[2016-11-04] MEDS: NYSTATIN 100,000 UNIT/GM CREAM 15 GM TOPICAL SCH ×2 (08:09→21:24)
[2016-11-04] MEDS: DIPYRIDAMOLE/ASPIRIN 200 MG/25 MG CAP PO SCH ×2 (08:09→21:23)
[2016-11-04] MEDS ORDERED: PNEUMOCOCCAL POLYVALENT INJ 25 MCG/0.5 ML SYR IM ONE (10:00)
--- NOTE | 2016-11-04 12:02 | HHI.NPPN ---
Subjective History of Present Illness 81-year-old male with a past medical history of diabetes mellitus, hypertension, chronic kidney disease, history of stroke, hyperlipidemia who was brought to the hospital with a complaint of weakness and abdominal pain. I was called to see the patient because of a very high BUN and creatinine. The patient has a history of chronic kidney disease and his creatinine before was 1.3. Additional Remarks Patient is alert, occ. has been confused off and on. Review of Systems General Constitutional: Fatigue Cardiovascular Cardiac: ALLISON Objective Data Data 11/03/16 11/04/16 19:00 07:00 Intake Total 1063 ml 1669 ml Output Total 800 ml 1350 ml Balance 263 ml 319 ml Intake Oral 240 ml 620 ml IV Total 823 ml 1049 ml Output Urine Total 800 ml 1350 ml # Bowel Movements 2 2 Vital Signs Date Time Temp Pulse Resp B/P Pulse Ox O2 Delivery O2 Flow Rate FiO2 11/04/16 08:00 94 11/04/16 08:00 97.0 102 16 107/77 98 11/04/16 07:13 Room Air 11/04/16 06:00 98 11/04/16 05:00 94 11/04/16 04:00 96.1 91 20 101/49 95 11/04/16 04:00 84 11/04/16 04:00 Room Air 11/04/16 03:00 85 11/04/16 02:00 98 11/04/16 01:00 90 11/04/16 00:00 98.4 90 20 138/68 96 11/04/16 00:00 83 11/04/16 00:00 Room Air 11/03/16 23:00 84 11/03/16 22:00 80 11/03/16 21:00 96 11/03/16 20:00 Room Air 11/03/16 20:00 91 11/03/16 20:00 96.0 91 18 143/70 95 11/03/16 19:00 82 11/03/16 18:00 108 11/03/16 17:00 116 11/03/16 15:00 97.7 89 20 117/61 96 11/03/16 15:00 72 11/03/16 15:00 74 11/03/16 14:00 70 11/03/16 13:00 68 -: 11/04/16 0555 11/04/16 0555 Physical Exam General Appearance: No Acute Distress, Comfortable Eyes Eye Exam: Pupils Equal Neck Neck Exam: Neck Supple Pulmonary Resp Exam: Breath Sounds Equal, No Distress, Rhonchi, Decreased Bases, Diminished Breath Sounds Cardiology CV Exam: Regular, Normal Sinus Rhythm Gastrointestinal/Abdomen GI Exam: Soft, Non-Tender, Bowel Sounds Present Extremeties Extremities Exam: No Edema Neurologic Neuro Exam: Alert, Awake Psychiatric Psych Exam: Appropriate Responses Assessment/Plan Assessment Summary: NASREEN/Acute Renal Failure, Dehydration, Hypotension, CKD Stage III Electrolyte Assessment: Metabolic Acidosis Problem List: (1) Hyperlipemia (2) Hypertension (3) Generalized weakness (4) DM (diabetes mellitus), type 2 (5) History of TIA (transient ischemic attack) and stroke (6) Stage 3 chronic kidney disease (7) Acute renal failure Plan Patient has been non oliguric. Acidosis is better, BP is improving. BUN and Creatinine continue to improve. Most likely has NASREEN due to ATN/and or pre renal. Continue IVF with NaHco3. Avoid Nephrotoxins, follow urine out put and BMP. EFRAÍN and SPEP negative. Problem Qualifiers (1) Acute renal failure: Qualified Code: N17.9 - Acute renal failure, unspecified acute renal failure type Geo Valladares MD Nov 04, 2016 12:02
[2016-11-04 13:54] LABS: MYELOPEROXIDASE LESS THAN 1.0 AI (<1.0); PROTEINASE-3 LESS THAN 1.0 AI (<1.0)
--- NOTE | 2016-11-04 15:24 | HHI.PR ---
Subjective Remarks Patient is feeling tired and weak No other complaint Alert oriented No pain No shortness of breath No nausea vomiting wants to go home Review of systems a 12 point system otherwise unremarkable Objective Objective Results - Vital Signs Date Time Temp Pulse Resp B/P Pulse Ox O2 Delivery O2 Flow Rate FiO2 11/04/16 15:00 92 11/04/16 14:00 90 11/04/16 13:00 80 11/04/16 12:00 88 11/04/16 12:00 97.5 87 16 147/66 97 11/04/16 11:00 88 11/04/16 10:00 85 11/04/16 09:00 72 11/04/16 08:00 94 11/04/16 08:00 97.0 102 16 107/77 98 11/04/16 07:13 Room Air 11/04/16 07:00 92 11/04/16 06:00 98 11/04/16 05:00 94 11/04/16 04:00 96.1 91 20 101/49 95 11/04/16 04:00 84 11/04/16 04:00 Room Air 11/04/16 03:00 85 11/04/16 02:00 98 11/04/16 01:00 90 11/04/16 00:00 98.4 90 20 138/68 96 11/04/16 00:00 83 11/04/16 00:00 Room Air 11/03/16 23:00 84 11/03/16 22:00 80 11/03/16 21:00 96 11/03/16 20:00 Room Air 11/03/16 20:00 91 11/03/16 20:00 96.0 91 18 143/70 95 11/03/16 19:00 82 11/03/16 18:00 108 11/03/16 17:00 116 I/O 11/03/16 11/03/16 11/03/16 11/04/16 11/04/16 11/04/16 07:00 15:00 23:00 07:00 15:00 23:00 Intake Total 480 ml 1063 ml 1669 ml Output Total 1400 ml 800 ml 1350 ml Balance -920 ml 263 ml 319 ml Intake Oral 480 ml 240 ml 620 ml IV Total 823 ml 1049 ml Output Urine Total 1400 ml 800 ml 1350 ml # Bowel Movements 2 2 Result Diagram: 11/04/16 0555 11/04/16 0555 Other Results Laboratory Tests Test 11/04/16 05:55 White Blood Count 13.9 Red Blood Count 3.49 Hemoglobin 10.9 Hematocrit 32.5 Mean Corpuscular Volume 93.1 Mean Corpuscular Hemoglobin 31.1 Mean Corpuscular Hemoglobin 33.4 Concent Red Cell Distribution Width 13.9 Platelet Count 264 Mean Platelet Volume 10.3 Sodium Level 145 Potassium Level 3.7 Chloride Level 108 Carbon Dioxide Level 20.6 Anion Gap 16 Blood Urea Nitrogen 86 Creatinine 2.94 Estimat Glomerular Filtration 21 Rate Random Glucose 142 Calcium Level 7.8 Physical Exam Physical Exam VITAL SIGNS: Reviewed GENERAL: This is a 81-year-old male resting comfortably in bed. He is in no acute distress. HEENT: Mucous membranes were mildly dry. There is no jaundice. NECK: Supple. CARDIOVASCULAR SYSTEM: Controlled rate. RESPIRATORY SYSTEM: Lungs are clear to auscultation bilaterally. GASTROINTESTINAL: Bowel sounds are present. There is no tenderness, guarding, rebound or distention. GENITOURINARY SYSTEM: A Sanchez catheter is in place. No suprapubic tenderness, no CVA tenderness. MUSCULOSKELETAL SYSTEM: No edema. Sami's is negative. Distal pulse are palpable. NEUROLOGIC EXAM: The patient is awake, alert and oriented 3 . Speech is clear and fluent. His tongue is midline. EOMs are grossly intact. Layer Off is 5/5. He has very mild tremors in his upper extremities. Straight leg raise is negative bilaterally. Dorsi and plantar flexion are 5/5. Gait and station is not tested. A/P Assessment and Plan 1. Acute renal failure. 2. Hyponatremia. 3. Metabolic acidosis. 4. Malnutrition. 5. Elevated lipase. 6. Diabetes mellitus. 7. Recent CVA. 8. Leukocytosis. 9. History of hypertension. 10. Hyperlipidemia. 11. Tonsillectomy. DISCUSSION Labs reviewed Improving renal function Leukocytosis will monitor Appreciate nephrology input Anemia of hydration stable H&H Metabolic acidosis is improving Hyponatremia better Uncontrolled sugar Increase lipase without any symptomatology Positive C. difficile. By mouth vancomycin Monitor blood pressure Monitor sugar Tolerating diet monitor I's and O's Radiology report reviewed Discussed with patient. Discussed with on phone Continue home medication as indicated Is cussed with RN Plan for physical therapy Encourage activity out of bed Plan for labs tomorrow morning Kirsten Reed MD Nov 04, 2016 15:24
[2016-11-04] MEDS: VANCOMYCIN 500 MG VIAL (FOR ORAL USE ONLY) PO SCH ×2 (17:21→21:40)
[2016-11-04] MEDS ORDERED: HALOPERIDOL LACTATE 5 MG/ML AMP IM PRN (18:00)
[2016-11-04] MEDS: DONEPEZIL HCL 5 MG TAB PO SCH (21:23)
[2016-11-04] MEDS: ATORVASTATIN 80 MG TAB PO SCH (21:23)
[2016-11-05] VITALS (18 sets, daily range): BP systolic 114–130; BP diastolic 45–65; PULSE 48–80; RESP 16–18; TEMP 97–99.4; O2SAT 93–98
[2016-11-05] MEDS: HEPARIN SODIUM - SQ 10,000 UNITS/ML VIAL SQ SCH ×2 (01:30→15:08)
[2016-11-05] MEDS: PANTOPRAZOLE SODIUM 40 MG VIAL IV PUSH SCH (01:45)
[2016-11-05] MEDS: INSULIN ASPART SUPPLEMENTAL SCALE SQ SCH ×4 (06:45→20:53)
[2016-11-05 07:21] LABS: BICARBONATE 26.6 MEQ/L (21.0-32.0); POTASSIUM 3.7 MEQ/L (3.5-5.1)
[2016-11-05 07:26] LABS: MEAN CELL VOLUME 93.7 FL (80.0-100.0); MEAN CORPUSCULAR HEMOGLOBIN 31.2 PG (27.0-34.0); MEAN CORPUSCULAR HGB CONC 33.3 % (32.0-36.0); PLATELET COUNT 258 TH/MM3 (150-450); RED CELL DISTRIBUTION WIDTH 14.1 % (11.6-17.2); REVIEW FLAG FINAL; WHITE BLOOD COUNT 12.1 TH/MM3 (4.0-11.0)
[2016-11-05] MEDS: NYSTATIN 100,000 UNIT/GM CREAM 15 GM TOPICAL SCH ×2 (09:00→20:38)
[2016-11-05] MEDS: VANCOMYCIN 500 MG VIAL (FOR ORAL USE ONLY) PO SCH ×4 (09:17→20:38)
[2016-11-05] MEDS: METOPROLOL TARTRATE 50 MG TAB PO SCH ×2 (09:17→20:37)
[2016-11-05] MEDS: LACTOBACILLUS ACIDOPHILUS TAB PO SCH ×2 (09:17→20:37)
[2016-11-05] MEDS: SODIUM CHLORIDE 0.9% FLUSH 5 ML FLUSH FLUSH SCH ×2 (09:17→20:37)
[2016-11-05] MEDS: FENOFIBRATE 145 MG TAB PO SCH (09:17)
[2016-11-05] MEDS: DIPYRIDAMOLE/ASPIRIN 200 MG/25 MG CAP PO SCH ×2 (09:17→20:37)
--- NOTE | 2016-11-05 10:23 | HHI.NPPN ---
Subjective History of Present Illness 81-year-old male with a past medical history of diabetes mellitus, hypertension, chronic kidney disease, history of stroke, hyperlipidemia who was brought to the hospital with a complaint of weakness and abdominal pain. I was called to see the patient because of a very high BUN and creatinine. The patient has a history of chronic kidney disease and his creatinine before was 1.3. Additional Remarks Patient is alert, not in distress. Review of Systems General Constitutional: Fatigue Cardiovascular Cardiac: ALLISON Objective Data Data 11/04/16 11/05/16 19:00 07:00 Intake Total 1269 ml 1016 ml Output Total 1100 ml 750 ml Balance 169 ml 266 ml Intake Oral 480 ml 240 ml IV Total 789 ml 776 ml Output Urine Total 1100 ml 750 ml # Bowel Movements 3 1 Vital Signs Date Time Temp Pulse Resp B/P Pulse Ox O2 Delivery O2 Flow Rate FiO2 11/05/16 08:12 97.0 50 18 120/54 96 11/05/16 08:12 50 11/05/16 06:00 51 11/05/16 05:00 52 11/05/16 04:00 97.2 53 16 114/45 93 11/05/16 04:00 50 11/05/16 03:00 60 11/05/16 02:00 62 11/05/16 01:00 78 11/05/16 00:00 97.7 78 18 122/62 97 11/05/16 00:00 80 11/04/16 23:00 76 11/04/16 22:00 74 11/04/16 21:00 74 11/04/16 20:00 97.8 68 16 137/64 98 Manual Cuff/Auscultation 11/04/16 20:00 87 11/04/16 19:00 96 11/04/16 16:00 97.6 85 16 116/64 97 11/04/16 16:00 87 11/04/16 15:00 92 11/04/16 14:00 90 11/04/16 13:00 80 11/04/16 12:00 88 11/04/16 12:00 97.5 87 16 147/66 97 11/04/16 11:00 88 -: 11/05/16 0541 11/05/16 0541 Physical Exam General Appearance: No Acute Distress, Comfortable Eyes Eye Exam: Pupils Equal Neck Neck Exam: Neck Supple Pulmonary Resp Exam: Breath Sounds Equal, No Distress, Rhonchi, Decreased Bases, Diminished Breath Sounds Cardiology CV Exam: Regular, Normal Sinus Rhythm Gastrointestinal/Abdomen GI Exam: Soft, Non-Tender, Bowel Sounds Present Extremeties Extremities Exam: No Edema Neurologic Neuro Exam: Alert, Awake Psychiatric Psych Exam: Appropriate Responses Assessment/Plan Assessment Summary: NASREEN/Acute Renal Failure, Dehydration, Hypotension, CKD Stage III Electrolyte Assessment: Metabolic Acidosis Problem List: (1) Hyperlipemia (2) Hypertension (3) Generalized weakness (4) DM (diabetes mellitus), type 2 (5) History of TIA (transient ischemic attack) and stroke (6) Stage 3 chronic kidney disease (7) Acute renal failure Plan Patient has been non oliguric. Acidosis is better, BP is improving. BUN and Creatinine continue to improve. Most likely has NASREEN due to ATN/and or pre renal. Avoid Nephrotoxins, follow urine out put and BMP. EFRAÍN and SPEP negative. Na. increasing, will D/C NaHco3. Follow BMP. Problem Qualifiers (1) Hypertension: Qualified Code: I10 - Essential hypertension (2) Acute renal failure: Qualified Code: N17.9 - Acute renal failure, unspecified acute renal failure type Geo Valladares MD Nov 05, 2016 10:23
--- NOTE | 2016-11-05 16:14 | HHI.PR ---
Subjective Subjective Remarks Drowsy, responds to loud verbal stimuli Appetite fair Pale skin No chest pain No shortness of breath Weakness (Vera Rodrigues) Review of Systems Constitutional Constitutional: Fatigue, Weakness (Vera Rodrigues) Integumentary Skin Remarks Pale (Vera Rodrigues) Neurologic Neurologic Remarks Drowsy (Vera Rodrigues) Psychiatric Psychiatric: Normal Mood Psychiatric Remarks No agitation (Vera Rodrigues) Vitals/Results Intake & Output 11/04/16 11/04/16 11/05/16 15:00 23:00 07:00 Intake Total 1269 ml 1016 ml Output Total 1100 ml 750 ml Balance 169 ml 266 ml Intake Oral 480 ml 240 ml IV Total 789 ml 776 ml Output Urine Total 1100 ml 750 ml # Bowel Movements 3 1 Vital Signs Vital Signs Date Time Temp Pulse Resp B/P Pulse Ox O2 Delivery O2 Flow Rate FiO2 11/05/16 12:42 98.0 78 18 128/60 98 11/05/16 12:24 69 11/05/16 08:12 97.0 50 18 120/54 96 11/05/16 08:12 50 11/05/16 06:00 51 11/05/16 05:00 52 11/05/16 04:00 97.2 53 16 114/45 93 11/05/16 04:00 50 11/05/16 03:00 60 11/05/16 02:00 62 11/05/16 01:00 78 11/05/16 00:00 97.7 78 18 122/62 97 11/05/16 00:00 80 11/04/16 23:00 76 11/04/16 22:00 74 11/04/16 21:00 74 11/04/16 20:00 97.8 68 16 137/64 98 Manual Cuff/Auscultation 11/04/16 20:00 87 11/04/16 19:00 96 (Vera Rodrigues) CBC/BMP: 11/05/16 0541 11/05/16 0541 Lab Results Laboratory Tests Test 11/05/16 05:41 White Blood Count 12.1 TH/MM3 Red Blood Count 3.20 MIL/MM3 Hemoglobin 10.0 GM/DL Hematocrit 30.0 % Mean Corpuscular Volume 93.7 FL Mean Corpuscular Hemoglobin 31.2 PG Mean Corpuscular Hemoglobin 33.3 % Concent Red Cell Distribution Width 14.1 % Platelet Count 258 TH/MM3 Mean Platelet Volume 10.6 FL Sodium Level 149 MEQ/L Potassium Level 3.7 MEQ/L Chloride Level 108 MEQ/L Carbon Dioxide Level 26.6 MEQ/L Anion Gap 14 MEQ/L Blood Urea Nitrogen 54 MG/DL Creatinine 2.23 MG/DL Estimat Glomerular Filtration 29 ML/MIN Rate Random Glucose 124 MG/DL Calcium Level 8.0 MG/DL Current Medications Active Medications Haloperidol Lactate 2 mg 2 mg Q8H PRN IM Last administered on 11/04/16 23:38; Admin Dose 2 MG; Start 11/04/16 at 18:00 Sodium Chloride (1/2 NS 1000 ml Inj) 1,000 ml @ 100 mls/hr Q10H IV; Start 11/06 at 11:00 Vancomycin HCl (VANCOMYCIN for oral use only) 250 mg QID PO Last administered on 11/05/16 15:08; Admin Dose 250 MG; Start 11/04/16 at 18:00 (Vera Rodrigues) Physical Exam General General Appearance: No Acute Distress, Comfortable (Vera Rodrigues) Eyes Eye Exam: Pupils Equal (Vera Rodrigues) Ears & Nose Ears & Nose Exam: Nasal [place]uc[place] (Vera Rodrigues) Throat Throat Exam: Oral Mucosa [place] & Moist (Vera Rodrigues) Neck Neck Exam: Neck Supple (Vera Rodrigues) Pulmonary Resp Exam: Breath Sounds Equal, No Distress, Rhonchi, Decreased Bases, Diminished Breath Sounds (Vera RodriguesP) Cardiology CV Exam: Regular, Normal Sinus Rhythm (Vera Rodrigues) Gastrointestinal/Abdomen GI Exam: Soft, Non-Tender, Bowel Sounds Present (Vera Rodrigues) Integumentary Skin Exam: Warm, Dry Skin Remarks Pale (Vera Rodrigues) Extremeties Extremities Exam: No Edema (Vera Rodrigues) Neurologic Neuro Exam: Alert, Awake, Moving All Extremities Neuro Remarks Drowsy (Vera Rodrigues) Psychiatric Psych Exam: Appropriate Responses (Vera Rodrigues) Assessment/Plan Assessment/Plan IMPRESSION 1. Acute renal failure. 2. Hyponatremia. 3. Metabolic acidosis. 4. Malnutrition. 5. Elevated lipase. 6. Diabetes mellitus. 7. Recent CVA. 8. Leukocytosis. 9. History of hypertension. 10. Hyperlipidemia. 11. Tonsillectomy. DISCUSSION admitted to Dr. Kirsten Reed's service. The patient meets inpatient criteria due to the severity of his renal failure without which hospitalization he would be at a high risk of going into shock or even dying. hydration labs will be monitored. Patient has leukocytosis, trending down at 12.1 Anemia, probable to chronic disease. Currently 10.0 and we'll monitor. IV fluid changed to give him some bicarb since the bicarbonate is also low and check the lactic acid. hypernatremia with sodium level at 149 monitor consult Nephrology. Appreciate expert opinion. Probable prerenal azotemia with underlying chronic kidney disease. Telemetry, patient has had some bradycardic rhythm, asymptomatic We will adjust his home medications based on his renal function. DVT prophylaxis Anticipated discharge is back to rehab. Dictated by: Fer Mccullough PA-C Discussed Condition with: Patient Discussed Condition Comment Nurse Dr. Reed, patient seen on his behalf (Vera Rodrigues) Assessment/Plan Pt seen and examined above note reviewed face to face time spent with pt labs reviewed meds reviewed notes reviwed plan of care didier velásquez rn (Kirsten Reed MD) Vera Rodrigues Nov 05, 2016 16:14 Kirsten Reed MD Nov 05, 2016 18:53
[2016-11-05] MEDS: DONEPEZIL HCL 5 MG TAB PO SCH (20:37)
[2016-11-05] MEDS: ATORVASTATIN 80 MG TAB PO SCH (20:37)
[2016-11-06] VITALS (18 sets, daily range): BP systolic 120–142; BP diastolic 55–85; PULSE 52–74; RESP 16–18; TEMP 97–99.2; O2SAT 94–99
[2016-11-06 04:54] LABS: HEMATOCRIT 29.5 % (39.0-51.0); MEAN CELL VOLUME 93.9 FL (80.0-100.0); MEAN CORPUSCULAR HGB CONC 33.1 % (32.0-36.0); PLATELET COUNT 260 TH/MM3 (150-450); RED BLOOD COUNT 3.14 MIL/MM3 (4.50-5.90); RED CELL DISTRIBUTION WIDTH 13.9 % (11.6-17.2); REVIEW FLAG FINAL
[2016-11-06 05:12] LABS: BICARBONATE 26.8 MEQ/L (21.0-32.0); POTASSIUM 3.2 MEQ/L (3.5-5.1)
[2016-11-06] MEDS: HEPARIN SODIUM - SQ 10,000 UNITS/ML VIAL SQ SCH ×2 (05:33→13:49)
[2016-11-06] MEDS: PANTOPRAZOLE SODIUM 40 MG VIAL IV PUSH SCH (05:33)
[2016-11-06] MEDS: INSULIN ASPART SUPPLEMENTAL SCALE SQ SCH ×4 (07:00→21:35)
[2016-11-06] MEDS: NYSTATIN 100,000 UNIT/GM CREAM 15 GM TOPICAL SCH ×2 (09:00→21:00)
[2016-11-06] MEDS: DIPYRIDAMOLE/ASPIRIN 200 MG/25 MG CAP PO SCH ×2 (09:08→21:34)
[2016-11-06] MEDS: LACTOBACILLUS ACIDOPHILUS TAB PO SCH ×2 (09:08→21:33)
[2016-11-06] MEDS: METOPROLOL TARTRATE 50 MG TAB PO SCH ×2 (09:09→21:33)
[2016-11-06] MEDS: SODIUM CHLORIDE 0.9% FLUSH 5 ML FLUSH FLUSH SCH ×2 (09:09→21:36)
[2016-11-06] MEDS: FENOFIBRATE 145 MG TAB PO SCH (09:09)
[2016-11-06] MEDS: VANCOMYCIN 500 MG VIAL (FOR ORAL USE ONLY) PO SCH ×4 (09:09→21:34)
--- NOTE | 2016-11-06 10:24 | HHI.PR ---
Subjective Remarks Feeling better Offering no complaint Alert oriented No pain No shortness of breath No nausea vomiting as per RN had 4 episodes of diarrhea last night loses stool small quantity pasty looking Review of systems a 10 point system otherwise unremarkable Objective Objective Results - Vital Signs Date Time Temp Pulse Resp B/P Pulse Ox O2 Delivery O2 Flow Rate FiO2 11/06/16 08:09 73 11/06/16 06:21 98.9 61 18 130/66 98 11/06/16 04:00 56 11/06/16 03:00 56 11/06/16 02:00 54 11/06/16 01:00 62 11/06/16 00:50 99.2 58 16 120/55 99 11/06/16 00:00 52 11/05/16 23:00 64 11/05/16 22:00 66 11/05/16 21:00 70 11/05/16 20:59 99.4 68 16 129/65 98 11/05/16 20:00 66 11/05/16 19:00 64 11/05/16 16:08 98.0 48 18 130/64 95 11/05/16 16:06 48 11/05/16 12:42 98.0 78 18 128/60 98 11/05/16 12:24 69 I/O 11/05/16 11/05/16 11/05/16 11/06/16 11/06/16 11/06/16 07:00 15:00 23:00 07:00 15:00 23:00 Intake Total 1016 ml 1560 ml 680 ml Output Total 750 ml 850 ml 400 ml Balance 266 ml 710 ml 280 ml Intake Oral 240 ml 1060 ml 680 ml IV Total 776 ml 500 ml 0 ml Output Urine Total 750 ml 850 ml 400 ml # Bowel Movements 1 1 Result Diagram: 11/06/16 0421 11/06/16 0421 Other Results Laboratory Tests Test 11/06/16 04:21 White Blood Count 12.0 Red Blood Count 3.14 Hemoglobin 9.8 Hematocrit 29.5 Mean Corpuscular Volume 93.9 Mean Corpuscular Hemoglobin 31.0 Mean Corpuscular Hemoglobin 33.1 Concent Red Cell Distribution Width 13.9 Platelet Count 260 Mean Platelet Volume 9.5 Sodium Level 148 Potassium Level 3.2 Chloride Level 111 Carbon Dioxide Level 26.8 Anion Gap 10 Blood Urea Nitrogen 43 Creatinine 1.99 Estimat Glomerular Filtration 33 Rate Random Glucose 155 Calcium Level 7.7 Physical Exam Physical Exam VITAL SIGNS: Reviewed GENERAL: This is a 81-year-old male resting comfortably in bed. He is in no acute distress. HEENT: Mucous membranes were mildly dry. There is no jaundice. NECK: Supple. CARDIOVASCULAR SYSTEM: Controlled rate. RESPIRATORY SYSTEM: Lungs are clear to auscultation bilaterally. GASTROINTESTINAL: Bowel sounds are present. There is no tenderness, guarding, rebound or distention. GENITOURINARY SYSTEM: A Sanchez catheter is in place. No suprapubic tenderness, no CVA tenderness. MUSCULOSKELETAL SYSTEM: No edema. Sami's is negative. Distal pulse are palpable. NEUROLOGIC EXAM: The patient is awake, alert and oriented 3 . Speech is clear and fluent. His tongue is midline. EOMs are grossly intact. Swamper is 5/5. He has very mild tremors in his upper extremities. Straight leg raise is negative bilaterally. Dorsi and plantar flexion are 5/5. Gait and station is not tested. A/P Assessment and Plan 1. Acute renal failure. 2. Hyponatremia. 3. Metabolic acidosis. 4. Malnutrition. 5. Elevated lipase. 6. Diabetes mellitus. 7. Recent CVA. 8. Leukocytosis. 9. History of hypertension. 10. Hyperlipidemia. 11. Tonsillectomy. DISCUSSION Labs reviewed Improving renal function Leukocytosis will monitor Appreciate nephrology input Anemia of hydration stable H&H Metabolic acidosis better Hyponatremia better Uncontrolled sugar Increase lipase without any symptomatology Positive C. difficile. By mouth vancomycin Monitor blood pressure Monitor sugar Tolerating diet monitor I's and O's Radiology report reviewed Discussed with patient. Continue home medication as indicated Discussed RN Plan for physical therapy Encourage activity out of bed Plan for labs tomorrow morning Kirsten Reed MD Nov 06, 2016 10:23
[2016-11-06] MEDS: SODIUM CHLOR 0.45% 1000 ML INJ 1,000 ML IV SCH ×2 (11:31→21:32)
--- NOTE | 2016-11-06 13:35 | HHI.NPPN ---
Subjective History of Present Illness 81-year-old male with a past medical history of diabetes mellitus, hypertension, chronic kidney disease, history of stroke, hyperlipidemia who was brought to the hospital with a complaint of weakness and abdominal pain. I was called to see the patient because of a very high BUN and creatinine. The patient has a history of chronic kidney disease and his creatinine before was 1.3. Additional Remarks Patient is alert, now eating better, no SOB, on room air. Review of Systems General Constitutional: Fatigue Cardiovascular Cardiac: ALLISON Objective Data Data 11/05/16 11/06/16 19:00 07:00 Intake Total 1560 ml 680 ml Output Total 850 ml 400 ml Balance 710 ml 280 ml Intake Oral 1060 ml 680 ml IV Total 500 ml 0 ml Output Urine Total 850 ml 400 ml # Bowel Movements 1 Vital Signs Date Time Temp Pulse Resp B/P Pulse Ox O2 Delivery O2 Flow Rate FiO2 11/06/16 12:39 97.4 62 18 134/78 96 11/06/16 12:23 69 11/06/16 10:55 98.0 58 18 134/70 96 11/06/16 08:09 73 11/06/16 06:21 98.9 61 18 130/66 98 11/06/16 04:00 56 11/06/16 03:00 56 11/06/16 02:00 54 11/06/16 01:00 62 11/06/16 00:50 99.2 58 16 120/55 99 11/06/16 00:00 52 11/05/16 23:00 64 11/05/16 22:00 66 11/05/16 21:00 70 11/05/16 20:59 99.4 68 16 129/65 98 11/05/16 20:00 66 11/05/16 19:00 64 11/05/16 16:08 98.0 48 18 130/64 95 11/05/16 16:06 48 -: 11/06/16 0421 11/06/16 042 Physical Exam General Appearance: No Acute Distress, Comfortable Eyes Eye Exam: Pupils Equal Ears & Nose Ears & Nose Exam: Nasal Mucosa [place] Throat Throat Exam: Oral Mucosa [place] & Moist Neck Neck Exam: Neck Supple Pulmonary Resp Exam: Breath Sounds Equal, No Distress, Rhonchi, Decreased Bases, Diminished Breath Sounds Cardiology CV Exam: Regular, Normal Sinus Rhythm Gastrointestinal/Abdomen GI Exam: Soft, Non-Tender, Bowel Sounds Present Integumentary Skin Exam: Warm, Dry Extremeties Extremities Exam: No Edema Neurologic Neuro Exam: Alert, Awake, Moving All Extremities Psychiatric Psych Exam: Appropriate Responses Assessment/Plan Assessment Summary: NASREEN/Acute Renal Failure, Dehydration, Hypotension, CKD Stage III Electrolyte Assessment: Metabolic Acidosis Problem List: (1) Hyperlipemia (2) Hypertension (3) Generalized weakness (4) DM (diabetes mellitus), type 2 (5) History of TIA (transient ischemic attack) and stroke (6) Stage 3 chronic kidney disease (7) Acute renal failure Plan Patient has been non oliguric. Acidosis is better, BP is improving. BUN and Creatinine continue to improve. Most likely has NASREEN due to ATN/and or pre renal. Avoid Nephrotoxins, follow urine out put and BMP. EFRAÍN and SPEP negative. Creatinine continue to improve. Continue IVF and encourage oral fluid intake. Problem Qualifiers (1) Hypertension: Qualified Code: I10 - Essential hypertension (2) Acute renal failure: Qualified Code: N17.9 - Acute renal failure, unspecified acute renal failure type Geo Valladares MD Nov 06, 2016 13:35
[2016-11-06] MEDS ORDERED: POTASSIUM CHLOR 20 MEQ PREMIX 100 ML IV ONE (13:45)
[2016-11-06] MEDS: ATORVASTATIN 80 MG TAB PO SCH (21:34)
[2016-11-06] MEDS: DONEPEZIL HCL 5 MG TAB PO SCH (21:34)
[2016-11-07] VITALS (23 sets, daily range): BP systolic 104–150; BP diastolic 36–70; PULSE 56–92; RESP 16–18; TEMP 97–98.9; O2SAT 93–98
[2016-11-07] MEDS: PANTOPRAZOLE SODIUM 40 MG VIAL IV PUSH SCH (03:13)
[2016-11-07] MEDS: HEPARIN SODIUM - SQ 10,000 UNITS/ML VIAL SQ SCH ×2 (03:14→12:48)
[2016-11-07 07:00] LABS: HEMATOCRIT 29.1 % (39.0-51.0); MEAN CORPUSCULAR HEMOGLOBIN 30.9 PG (27.0-34.0); MEAN CORPUSCULAR HGB CONC 32.9 % (32.0-36.0); PLATELET COUNT 260 TH/MM3 (150-450); RED BLOOD COUNT 3.09 MIL/MM3 (4.50-5.90); REVIEW FLAG FINAL; WHITE BLOOD COUNT 12.4 TH/MM3 (4.0-11.0)
[2016-11-07] MEDS: INSULIN ASPART SUPPLEMENTAL SCALE SQ SCH ×3 (07:00→16:00)
[2016-11-07 07:28] LABS: BICARBONATE 23.2 MEQ/L (21.0-32.0); POTASSIUM 3.2 MEQ/L (3.5-5.1)
[2016-11-07] MEDS: VANCOMYCIN 500 MG VIAL (FOR ORAL USE ONLY) PO SCH ×4 (09:58→21:00)
[2016-11-07] MEDS: LACTOBACILLUS ACIDOPHILUS TAB PO SCH (09:58)
[2016-11-07] MEDS: DIPYRIDAMOLE/ASPIRIN 200 MG/25 MG CAP PO SCH ×2 (09:58→21:00)
[2016-11-07] MEDS: FENOFIBRATE 145 MG TAB PO SCH (09:58)
[2016-11-07] MEDS: METOPROLOL TARTRATE 50 MG TAB PO SCH ×2 (09:58→21:00)
[2016-11-07] MEDS: SODIUM CHLOR 0.45% 1000 ML INJ 1,000 ML IV SCH ×2 (09:59→17:08)
[2016-11-07] MEDS: NYSTATIN 100,000 UNIT/GM CREAM 15 GM TOPICAL SCH (09:59)
[2016-11-07] MEDS: SODIUM CHLORIDE 0.9% FLUSH 5 ML FLUSH FLUSH SCH (09:59)
--- NOTE | 2016-11-07 10:32 | HHI.PR ---
Subjective Remarks Feeling better Offering no complaint Alert oriented No pain No shortness of breath No nausea vomiting as per RN had 3 episodes of diarrhea green liquid Review of systems a 10 point system otherwise unremarkable Objective Objective Results - Vital Signs Date Time Temp Pulse Resp B/P Pulse Ox O2 Delivery O2 Flow Rate FiO2 11/07/16 06:00 76 11/07/16 05:00 88 11/07/16 04:00 70 11/07/16 03:16 98.9 68 16 121/49 94 11/07/16 03:00 56 11/07/16 02:00 64 11/07/16 01:00 62 11/07/16 00:50 98.2 75 16 139/65 93 11/07/16 00:00 74 11/06/16 23:00 56 11/06/16 22:00 68 11/06/16 21:00 98.2 74 16 142/85 94 11/06/16 21:00 66 11/06/16 20:00 68 11/06/16 20:00 74 11/06/16 19:00 56 11/06/16 17:09 97.0 74 18 130/70 95 11/06/16 17:04 74 11/06/16 12:39 97.4 62 18 134/78 96 11/06/16 12:23 69 11/06/16 10:55 98.0 58 18 134/70 96 I/O 11/06/16 11/06/16 11/06/16 11/07/16 11/07/16 11/07/16 07:00 15:00 23:00 07:00 15:00 23:00 Intake Total 680 ml 2200 ml 1680 ml Output Total 400 ml 1600 ml 1025 ml Balance 280 ml 600 ml 655 ml Intake Oral 680 ml 1200 ml 480 ml IV Total 0 ml 1000 ml 1200 ml Output Urine Total 400 ml 1600 ml 1025 ml # Bowel Movements 1 2 Result Diagram: 11/07/1651911/07/16519 Other Results Laboratory Tests Test 11/07/16 05:20 White Blood Count 12.4 Red Blood Count 3.09 Hemoglobin 9.6 Hematocrit 29.1 Mean Corpuscular Volume 94.0 Mean Corpuscular Hemoglobin 30.9 Mean Corpuscular Hemoglobin 32.9 Concent Red Cell Distribution Width 14.0 Platelet Count 260 Mean Platelet Volume 10.2 Sodium Level 141 Potassium Level 3.2 Chloride Level 106 Carbon Dioxide Level 23.2 Anion Gap 12 Blood Urea Nitrogen 25 Creatinine 1.52 Estimat Glomerular Filtration 44 Rate Random Glucose 145 Calcium Level 7.5 Physical Exam Physical Exam VITAL SIGNS: Reviewed GENERAL: This is a 81-year-old male resting comfortably in bed. He is in no acute distress. HEENT: Mucous membranes were mildly dry. There is no jaundice. NECK: Supple. CARDIOVASCULAR SYSTEM: Controlled rate. RESPIRATORY SYSTEM: Lungs are clear to auscultation bilaterally. GASTROINTESTINAL: Bowel sounds are present. There is no tenderness, guarding, rebound or distention. GENITOURINARY SYSTEM: A Sanchez catheter is in place. No suprapubic tenderness, no CVA tenderness. MUSCULOSKELETAL SYSTEM: No edema. Sami's is negative. Distal pulse are palpable. NEUROLOGIC EXAM: The patient is awake, alert and oriented 3 . Speech is clear and fluent. His tongue is midline. EOMs are grossly intact. Gerentological Physiotherapist is 5/5. He has very mild tremors in his upper extremities. Straight leg raise is negative bilaterally. Dorsi and plantar flexion are 5/5. Gait and station is not tested. A/P Assessment and Plan 1. Acute renal failure. 2. Hyponatremia. 3. Metabolic acidosis. 4. Malnutrition. 5. Elevated lipase. 6. Diabetes mellitus. 7. Recent CVA. 8. Leukocytosis. 9. History of hypertension. 10. Hyperlipidemia. 11. Tonsillectomy. DISCUSSION Labs reviewed Significantly improved renal function Leukocytosis will monitor Appreciate nephrology input Anemia of hydration stable H&H Metabolic acidosis better Hyponatremia better Uncontrolled sugar Increase lipase without any symptomatology Positive C. difficile. By mouth vancomycin will monitor Monitor blood pressure Monitor sugar Tolerating diet monitor I's and O's Radiology report reviewed Discussed with patient. Continue home medication as indicated Discussed RN physical therapy Encourage activity out of bed Plan for labs tomorrow morning DC planning in a day or 2 hopefully Kirsten Reed MD Nov 07, 2016 10:32
--- NOTE | 2016-11-07 19:03 | HHI.NPPN ---
Subjective History of Present Illness 81-year-old male with a past medical history of diabetes mellitus, hypertension, chronic kidney disease, history of stroke, hyperlipidemia who was brought to the hospital with a complaint of weakness and abdominal pain. I was called to see the patient because of a very high BUN and creatinine. The patient has a history of chronic kidney disease and his creatinine before was 1.3. Additional Remarks Patient is alert, no SOB, clinically same. Review of Systems General Constitutional: Fatigue Cardiovascular Cardiac: ALLISON Objective Data Data 11/06/16 11/07/16 19:00 07:00 Intake Total 2200 ml 1680 ml Output Total 1600 ml 1025 ml Balance 600 ml 655 ml Intake Oral 1200 ml 480 ml IV Total 1000 ml 1200 ml Output Urine Total 1600 ml 1025 ml # Bowel Movements 2 Vital Signs Date Time Temp Pulse Resp B/P Pulse Ox O2 Delivery O2 Flow Rate FiO2 11/07/16 18:00 68 11/07/16 17:00 68 11/07/16 16:02 72 11/07/16 16:00 98.2 68 18 107/70 98 11/07/16 16:00 68 11/07/16 14:00 64 11/07/16 13:00 68 11/07/16 12:00 98.9 68 16 104/36 97 11/07/16 12:00 75 11/07/16 11:00 72 11/07/16 10:00 76 11/07/16 09:00 98.0 72 16 150/60 98 11/07/16 09:00 82 11/07/16 08:00 92 11/07/16 07:13 75 11/07/16 06:00 76 11/07/16 05:00 88 11/07/16 04:00 70 11/07/16 03:16 98.9 68 16 121/49 94 11/07/16 03:00 56 11/07/16 02:00 64 11/07/16 01:00 62 11/07/16 00:50 98.2 75 16 139/65 93 11/07/16 00:00 74 11/06/16 23:00 56 11/06/16 22:00 68 11/06/16 21:00 98.2 74 16 142/85 94 11/06/16 21:00 66 11/06/16 20:00 68 11/06/16 20:00 74 -: 2/12/17 0520 11/07/16 0520 Physical Exam General Appearance: No Acute Distress, Comfortable Eyes Eye Exam: Pupils Equal Ears & Nose Ears & Nose Exam: Nasal [place] Throat Throat Exam: Oral [place] & Moist Neck Neck Exam: Neck Supple Pulmonary Resp Exam: Breath Sounds Equal, No Distress, Rhonchi, Decreased Bases, Diminished Breath Sounds Cardiology CV Exam: Regular, Normal Sinus Rhythm Gastrointestinal/Abdomen GI Exam: Soft, Non-Tender, Bowel Sounds Present Integumentary Skin Exam: Warm, Dry Extremeties Extremities Exam: No Edema Neurologic Neuro Exam: Alert, Awake, Moving All Extremities Psychiatric Psych Exam: Appropriate Responses Assessment/Plan Assessment Summary: NASREEN/Acute Renal Failure, Dehydration, Hypotension, CKD Stage III Electrolyte Assessment: Metabolic Acidosis Problem List: (1) Hyperlipemia (2) Hypertension (3) Generalized weakness (4) DM (diabetes mellitus), type 2 (5) History of TIA (transient ischemic attack) and stroke (6) Stage 3 chronic kidney disease (7) Acute renal failure Plan Patient has been non oliguric. Acidosis is better, BP is improving. BUN and Creatinine continue to improve. Most likely has NASREEN due to ATN/and or pre renal. Avoid Nephrotoxins, follow urine out put and BMP. EFRAÍN and SPEP negative. Creatinine continue to improve. Continue IVF and encourage oral fluid intake. Avoid nephrotoxins, follow urine out put and BMP. Problem Qualifiers (1) Hypertension: Qualified Code: I10 - Essential hypertension (2) Acute renal failure: Qualified Code: N17.9 - Acute renal failure, unspecified acute renal failure type Geo Valladares MD Nov 07, 2016 19:03
[2016-11-08] VITALS (15 sets, daily range): BP systolic 96–133; BP diastolic 51–85; PULSE 58–98; RESP 18; TEMP 96–98.1; O2SAT 98–99
[2016-11-08] MEDS: PANTOPRAZOLE SODIUM 40 MG VIAL IV PUSH SCH (01:45)
[2016-11-08] MEDS: ATORVASTATIN 80 MG TAB PO SCH ×2 (02:19→21:10)
[2016-11-08] MEDS: HEPARIN SODIUM - SQ 10,000 UNITS/ML VIAL SQ SCH ×2 (02:19→12:44)
[2016-11-08] MEDS: NYSTATIN 100,000 UNIT/GM CREAM 15 GM TOPICAL SCH ×3 (02:20→21:00)
[2016-11-08] MEDS: INSULIN ASPART SUPPLEMENTAL SCALE SQ SCH ×5 (02:22→21:00)
[2016-11-08] MEDS: SODIUM CHLORIDE 0.9% FLUSH 5 ML FLUSH FLUSH SCH ×3 (02:23→21:00)
[2016-11-08] MEDS: DONEPEZIL HCL 5 MG TAB PO SCH ×2 (02:36→21:10)
[2016-11-08] MEDS: LACTOBACILLUS ACIDOPHILUS TAB PO SCH ×3 (02:36→21:10)
[2016-11-08 07:32] LABS: BICARBONATE 25.9 MEQ/L (21.0-32.0); POTASSIUM 3.1 MEQ/L (3.5-5.1)
[2016-11-08 07:51] LABS: CALCIUM-PROTEIN CORRECTED 7.8 MG/DL (8.5-10.1)
[2016-11-08] MEDS: DIPYRIDAMOLE/ASPIRIN 200 MG/25 MG CAP PO SCH ×2 (08:20→21:10)
[2016-11-08] MEDS: FENOFIBRATE 145 MG TAB PO SCH (08:20)
[2016-11-08] MEDS: METOPROLOL TARTRATE 50 MG TAB PO SCH ×2 (08:20→21:00)
[2016-11-08] MEDS: VANCOMYCIN 500 MG VIAL (FOR ORAL USE ONLY) PO SCH ×4 (08:21→21:10)
--- NOTE | 2016-11-08 11:19 | HHI.PR ---
Subjective Remarks Feeling better Offering no complaint Alert oriented No pain No shortness of breath No nausea vomiting as per RN had 3 episodes of diarrhea green liquid last night and 2 this morning Review of systems a 10 point system otherwise unremarkable Objective Objective Results - Vital Signs Date Time Temp Pulse Resp B/P Pulse Ox O2 Delivery O2 Flow Rate FiO2 11/08/16 08:00 96.0 90 18 124/56 98 11/08/16 03:00 98.1 73 18 133/66 98 11/07/16 23:00 97.8 72 18 112/66 96 11/07/16 21:00 97.8 73 18 111/68 97 11/07/16 18:00 97.0 74 18 104/70 95 11/07/16 18:00 68 11/07/16 17:00 68 11/07/16 16:02 72 11/07/16 16:00 98.2 68 18 107/70 98 11/07/16 16:00 68 11/07/16 14:00 64 11/07/16 13:00 68 11/07/16 12:00 98.9 68 16 104/36 97 11/07/16 12:00 75 I/O 11/07/16 11/07/16 11/07/16 11/08/16 11/08/16 11/08/16 07:00 15:00 23:00 07:00 15:00 23:00 Intake Total 1680 ml 1543 ml 840 ml Output Total 1025 ml 600 ml 425 ml Balance 655 ml 943 ml 415 ml Intake Oral 480 ml 680 ml 240 ml IV Total 1200 ml 863 ml 600 ml Output Urine Total 1025 ml 600 ml 425 ml # Bowel Movements 2 1 3 Result Diagram: 11/07/16 0520 11/08/16 0635 Other Results Laboratory Tests Test 11/08/16 06:35 Sodium Level 140 Potassium Level 3.1 Chloride Level 106 Carbon Dioxide Level 25.9 Anion Gap 8 Blood Urea Nitrogen 16 Creatinine 1.31 Estimat Glomerular Filtration 53 Rate Random Glucose 132 Calcium Level 7.2 Protein Corrected Calcium 7.8 Total Protein 5.9 Physical Exam Physical Exam VITAL SIGNS: Reviewed GENERAL: This is a 81-year-old male resting comfortably in bed. He is in no acute distress. HEENT: Mucous membranes were mildly dry. There is no jaundice. NECK: Supple. CARDIOVASCULAR SYSTEM: Controlled rate. RESPIRATORY SYSTEM: Lungs are clear to auscultation bilaterally. GASTROINTESTINAL: Bowel sounds are present. There is no tenderness, guarding, rebound or distention. GENITOURINARY SYSTEM: A Sanchez catheter is in place. No suprapubic tenderness, no CVA tenderness. MUSCULOSKELETAL SYSTEM: No edema. Sami's is negative. Distal pulse are palpable. NEUROLOGIC EXAM: The patient is awake, alert and oriented 3 . Speech is clear and fluent. His tongue is midline. EOMs are grossly intact. Vp Construction is 5/5. He has very mild tremors in his upper extremities. Straight leg raise is negative bilaterally. Dorsi and plantar flexion are 5/5. Gait and station is not tested. A/P Assessment and Plan 1. Acute renal failure. 2. Hyponatremia. 3. Metabolic acidosis. 4. Malnutrition. 5. Elevated lipase. 6. Diabetes mellitus. 7. Recent CVA. 8. Leukocytosis. 9. History of hypertension. 10. Hyperlipidemia. 11. Tonsillectomy. DISCUSSION Labs reviewed Significantly improved renal function Leukocytosis stable will monitor Appreciate nephrology input Anemia of hydration stable H&H Metabolic acidosis better Hyponatremia better Uncontrolled sugar, improving control Increase lipase without any symptomatology Positive C. difficile. By mouth vancomycin will monitor Monitor blood pressure Monitor sugar Tolerating diet monitor I's and O's Radiology report reviewed Discussed with patient. Continue home medication as indicated Discussed RN physical therapy Encourage activity out of bed Plan for labs tomorrow morning DC planning in a day or 2 hopefully once a stable Kirsten Reed MD Nov 08, 2016 11:19
[2016-11-08] MEDS: SODIUM CHLOR 0.45% 1000 ML INJ 1,000 ML IV SCH ×2 (12:45→23:00)
[2016-11-09] VITALS (25 sets, daily range): BP systolic 108–147; BP diastolic 60–78; PULSE 54–94; RESP 17–20; TEMP 96.5–98; O2SAT 96–98
[2016-11-09] MEDS: HEPARIN SODIUM - SQ 10,000 UNITS/ML VIAL SQ SCH ×2 (01:30→12:27)
[2016-11-09] MEDS: PANTOPRAZOLE SODIUM 40 MG VIAL IV PUSH SCH (01:45)
[2016-11-09 05:56] LABS: HEMATOCRIT 25.5 % (39.0-51.0); MEAN CELL VOLUME 92.9 FL (80.0-100.0); MEAN CORPUSCULAR HEMOGLOBIN 32.4 PG (27.0-34.0); MEAN CORPUSCULAR HGB CONC 34.8 % (32.0-36.0); PLATELET COUNT 244 TH/MM3 (150-450); RED BLOOD COUNT 2.75 MIL/MM3 (4.50-5.90); RED CELL DISTRIBUTION WIDTH 13.8 % (11.6-17.2); REVIEW FLAG FINAL; WHITE BLOOD COUNT 10.2 TH/MM3 (4.0-11.0)
[2016-11-09] MEDS: INSULIN ASPART SUPPLEMENTAL SCALE SQ SCH ×4 (06:20→21:00)
[2016-11-09 06:23] LABS: CALCIUM-PROTEIN CORRECTED 7.8 MG/DL (8.5-10.1)
[2016-11-09] MEDS: SODIUM CHLORIDE 0.9% FLUSH 5 ML FLUSH FLUSH SCH ×2 (09:00→21:00)
[2016-11-09] MEDS: DIPYRIDAMOLE/ASPIRIN 200 MG/25 MG CAP PO SCH ×2 (09:13→20:36)
[2016-11-09] MEDS: FENOFIBRATE 145 MG TAB PO SCH (09:14)
[2016-11-09] MEDS: METOPROLOL TARTRATE 50 MG TAB PO SCH ×2 (09:14→20:36)
[2016-11-09] MEDS: VANCOMYCIN 500 MG VIAL (FOR ORAL USE ONLY) PO SCH ×4 (09:14→20:36)
[2016-11-09] MEDS: LACTOBACILLUS ACIDOPHILUS TAB PO SCH ×2 (09:14→20:36)
[2016-11-09] MEDS: NYSTATIN 100,000 UNIT/GM CREAM 15 GM TOPICAL SCH ×2 (09:15→20:37)
[2016-11-09] MEDS: SODIUM CHLOR 0.45% 1000 ML INJ 1,000 ML IV SCH ×2 (09:17→17:13)
--- NOTE | 2016-11-09 15:05 | HHI.PR ---
Subjective Remarks No chest pain Weakness generalized Skin color pale Awake but doses off to sleep easily Sanchez No acute shortness of breath at rest Objective Objective Results - Vital Signs Date Time Temp Pulse Resp B/P Pulse Ox O2 Delivery O2 Flow Rate FiO2 11/09/16 13:00 80 11/09/16 12:00 78 11/09/16 12:00 98.0 68 146/68 98 11/09/16 11:00 60 11/09/16 10:00 58 11/09/16 09:00 64 11/09/16 08:00 76 11/09/16 08:00 98.0 68 20 146/68 98 11/09/16 07:48 96.5 74 17 109/60 98 11/09/16 07:00 70 11/09/16 06:00 77 11/09/16 05:00 77 11/09/16 04:00 74 11/09/16 03:00 78 11/09/16 02:00 82 11/09/16 01:00 78 11/09/16 00:00 97.9 75 18 108/66 98 11/09/16 00:00 76 11/08/16 23:00 88 11/08/16 22:00 86 11/08/16 21:00 76 11/08/16 20:00 97.9 76 18 96/64 98 11/08/16 20:00 76 11/08/16 19:22 97.6 73 104/85 99 11/08/16 19:00 72 11/08/16 18:00 76 11/08/16 17:00 80 11/08/16 16:00 58 I/O 11/08/16 11/08/16 11/08/16 11/09/16 11/09/16 11/09/16 07:00 15:00 23:00 07:00 15:00 23:00 Intake Total 840 ml 1240 ml Output Total 425 ml 450 ml 600 ml Balance 415 ml -450 ml 640 ml Intake Oral 240 ml 240 ml IV Total 600 ml 1000 ml Output Urine Total 425 ml 450 ml 600 ml # Bowel Movements 3 2 1 Result Diagram: 11/09/16 0524 11/09/16 0524 Other Results Last Impressions Abdomen/Pelvis CT 11/02/16 0014 Signed Impressions: Service Date/Time: Wednesday, November 02, 2016 00:45 - CONCLUSION: No acute disease. Ravi Cesar MD Chest X-Ray 11/01/16 8480 Signed Impressions: Service Date/Time: Tuesday, November 01, 2016 23:36 - CONCLUSION: Normal examination. Ravi Cesar MD ROS General: Fatigue, Weakness, Other (10 point ROS done, facial color pale, fatigued weakness even at rest, abdomen taut, trace of pedal edema, dozes off to sleep easily. All other systems negative or unremarkable) GI: Other (taut) /BRANCH SALES MANAGER: Other (Sanchez orange clear urine) Skin: Other (trace edema) Physical Exam Physical Exam PHYSICAL EXAMINATION GENERAL: This is a well-developed, well-nourished male who appears to be ill. He is and awake, at intervals. HEAD: Normocephalic without any lesion or mass noted. Facial features appear symmetric. OROPHARYNGEAL: Oropharynx without erythema or edema., Pale mucous membranes NECK: Supple. No nuchal rigidity or lymphadenopathy. Trachea midline without deviation. CARDIAC: Regular rhythm, regular rate, S1 and S2 are heard, distant Murmur none ; no gallops or rubs. LUNGS: Decreased to auscultation bilaterally. No wheeze, no rhonchi or rale.No use of accessory muscles on inspiration or expiration. Low volumes ABDOMEN: Round, Soft, nontender, no organomegaly or masses. Bowel sounds are heard in all four quadrants. No rebound. No guarding. EXTREMITIES: Trace to 1+ edema bilateral edema. Pulses equal bilateral. No cyanosis. NEUROLOGICAL: Patient mood and affect appropriate, but flat. No focal deficit SKIN:Warm and moist, pale Objective Remarks I'm doing okay I guess. A/P Assessment and Plan . Acute renal failure. 2. Hyponatremia., Resolving 3. Metabolic acidosis., Resolving 4. Malnutrition., 5. Elevated lipase. 6. Diabetes mellitus. Monitor 7. Recent CVA. 8. Leukocytosis. 9. History of hypertension. 10. Hyperlipidemia. 11. Tonsillectomy.\ 12. Hypokalemia DISCUSSION Acute renal failure, resolved normal trends today Labs reviewed, vital signs reviewed, medications reviewed Significantly improved renal function Leukocytosis stable now at 10.2 Appreciate nephrology input Anemia of hydration stable H&H, today 8.9, monitor for any further trends down Metabolic acidosis better, resolving Hyponatremia better, resolving Uncontrolled sugar, improving control Positive C. difficile. By mouth vancomycin will monitor Monitor blood pressure normal trends Monitor sugar Tolerating diet, fair , encouraged monitor I's and O's , Sanchez catheter\ Monitor skin which includes sacrum area, some excoriation Discussed with patient, and daughter physical therapy, walker in room continue with strengthening, mobility if possible Encourage activity out of bed Potassium supplement 3 doses today, recheck in the morning DC planning in a day or 2 hopefully once a stable, tentative Discharge Planning SNF, states. Discussed With: Nurse, Family ( and daughter), Other (Dr. Reed, patient seen on his behalf) Vera Rodrigues Nov 09, 2016 15:05
[2016-11-09] MEDS: POTASSIUM CL 40 MEQ/30 ML LIQ UDC PO SCH ×2 (17:12→20:36)
[2016-11-09] MEDS: DONEPEZIL HCL 5 MG TAB PO SCH (20:36)
[2016-11-09] MEDS: ATORVASTATIN 80 MG TAB PO SCH (20:36)
[2016-11-09] MEDS: CHOLESTYRAMINE 4 GM PACKET PO SCH (20:36)
[2016-11-10] VITALS (19 sets, daily range): BP systolic 104–133; BP diastolic 56–70; PULSE 60–79; RESP 16–20; TEMP 97.6–97.8; O2SAT 97–99
[2016-11-10] MEDS: POTASSIUM CL 40 MEQ/30 ML LIQ UDC PO SCH (00:20)
[2016-11-10] MEDS: HEPARIN SODIUM - SQ 10,000 UNITS/ML VIAL SQ SCH ×2 (00:23→13:08)
[2016-11-10] MEDS: PANTOPRAZOLE SODIUM 40 MG VIAL IV PUSH SCH (02:00)
[2016-11-10] MEDS: SODIUM CHLOR 0.45% 1000 ML INJ 1,000 ML IV SCH ×2 (05:00→15:00)
[2016-11-10] MEDS: INSULIN ASPART SUPPLEMENTAL SCALE SQ SCH ×3 (06:22→17:22)
[2016-11-10] MEDS: CHOLESTYRAMINE 4 GM PACKET PO SCH (08:23)
[2016-11-10] MEDS: FENOFIBRATE 145 MG TAB PO SCH (08:23)
[2016-11-10] MEDS: DIPYRIDAMOLE/ASPIRIN 200 MG/25 MG CAP PO SCH (08:24)
[2016-11-10] MEDS: LACTOBACILLUS ACIDOPHILUS TAB PO SCH (08:24)
[2016-11-10] MEDS: VANCOMYCIN 500 MG VIAL (FOR ORAL USE ONLY) PO SCH ×3 (08:25→17:23)
[2016-11-10] MEDS: METOPROLOL TARTRATE 50 MG TAB PO SCH (08:25)
[2016-11-10] MEDS: SODIUM CHLORIDE 0.9% FLUSH 5 ML FLUSH FLUSH SCH (08:25)
[2016-11-10] MEDS: NYSTATIN 100,000 UNIT/GM CREAM 15 GM TOPICAL SCH (08:28)
--- NOTE | 2016-11-10 12:24 | HHI.NPPN ---
Subjective History of Present Illness 81-year-old male with a past medical history of diabetes mellitus, hypertension, chronic kidney disease, history of stroke, hyperlipidemia who was brought to the hospital with a complaint of weakness and abdominal pain. I was called to see the patient because of a very high BUN and creatinine. The patient has a history of chronic kidney disease and his creatinine before was 1.3. and follow with Dr. Brownlee Additional Remarks Patient is alert, no SOB, clinically same. Review of Systems General Constitutional: Fatigue Cardiovascular Cardiac: ALLISON Objective Data Data 11/09/16 11/10/16 19:00 07:00 Intake Total 1750 ml 1240 ml Output Total 550 ml 800 ml Balance 1200 ml 440 ml Intake Oral 750 ml 240 ml IV Total 1000 ml 1000 ml Output Urine Total 550 ml 800 ml # Bowel Movements 1 1 Vital Signs Date Time Temp Pulse Resp B/P Pulse Ox O2 Delivery O2 Flow Rate FiO2 11/10/16 09:56 65 11/10/16 08:00 78 11/10/16 08:00 97.8 72 20 104/56 97 11/10/16 07:00 61 11/10/16 06:00 79 11/10/16 05:00 60 11/10/16 04:00 62 16 128/70 98 11/10/16 04:00 66 11/10/16 03:00 66 11/10/16 02:00 67 11/10/16 01:00 66 11/10/16 00:00 68 11/10/16 00:00 97.6 66 18 130/66 97 11/09/16 23:00 66 11/09/16 22:00 78 11/09/16 21:00 64 11/09/16 20:00 68 11/09/16 20:00 96.6 72 18 135/78 96 11/09/16 19:00 94 11/09/16 18:00 66 11/09/16 17:00 84 11/09/16 16:15 97.9 80 147/71 96 11/09/16 16:00 54 11/09/16 15:00 62 11/09/16 13:00 80 -: 11/09/16 0524 11/09/16 0524 Physical Exam General Appearance: No Acute Distress, Comfortable Eyes Eye Exam: Pupils Equal Ears & Nose Ears & Nose Exam: Nasal Mucosa Nuevo Throat Throat Exam: Oral Mucosa Nuevo & Moist Neck Neck Exam: Neck Supple Pulmonary Resp Exam: Breath Sounds Equal, No Distress, Rhonchi, Decreased Bases, Diminished Breath Sounds Cardiology CV Exam: Regular, Normal Sinus Rhythm Gastrointestinal/Abdomen GI Exam: Soft, Non-Tender, Bowel Sounds Present Integumentary Skin Exam: Warm, Dry Extremeties Extremities Exam: No Edema Neurologic Neuro Exam: Alert, Awake, Moving All Extremities Psychiatric Psych Exam: Appropriate Responses Assessment/Plan Assessment Summary: NASREEN/Acute Renal Failure, Dehydration, Hypotension, CKD Stage III Electrolyte Assessment: Metabolic Acidosis Problem List: (1) Hyperlipemia (2) Hypertension (3) Generalized weakness (4) DM (diabetes mellitus), type 2 (5) History of TIA (transient ischemic attack) and stroke (6) Stage 3 chronic kidney disease (7) Acute renal failure Plan Patient has been non oliguric. Acidosis is better, BP is improving. BUN and Creatinine continue to improve. treated for c diff PO Vanco he has followed with me as out pt his GFR improved has Stage 3 CKD Avoid nephrotoxins, follow urine out put and BMP. Problem Qualifiers (1) Hypertension: Qualified Code: I10 - Essential hypertension (2) Acute renal failure: Qualified Code: N17.9 - Acute renal failure, unspecified acute renal failure type Allen Brownlee MD Nov 10, 2016 12:24
--- NOTE | 2016-11-10 13:27 | HHI.PR ---
Subjective Remarks Feeling better Offering no complaint Alert oriented No pain No shortness of breath No nausea vomiting No diarrhea Review of systems a 10 point system otherwise unremarkable Objective Objective Results - Vital Signs Date Time Temp Pulse Resp B/P Pulse Ox O2 Delivery O2 Flow Rate FiO2 11/10/16 09:56 65 11/10/16 08:00 78 11/10/16 08:00 97.8 72 20 104/56 97 11/10/16 07:00 61 11/10/16 06:00 79 11/10/16 05:00 60 11/10/16 04:00 62 16 128/70 98 11/10/16 04:00 66 11/10/16 03:00 66 11/10/16 02:00 67 11/10/16 01:00 66 11/10/16 00:00 68 11/10/16 00:00 97.6 66 18 130/66 97 11/09/16 23:00 66 11/09/16 22:00 78 11/09/16 21:00 64 11/09/16 20:00 68 11/09/16 20:00 96.6 72 18 135/78 96 11/09/16 19:00 94 11/09/16 18:00 66 11/09/16 17:00 84 11/09/16 16:15 97.9 80 147/71 96 11/09/16 16:00 54 11/09/16 15:00 62 I/O 11/09/16 11/09/16 11/09/16 11/10/16 11/10/16 11/10/16 07:00 15:00 23:00 07:00 15:00 23:00 Intake Total 1240 ml 1750 ml 1240 ml Output Total 600 ml 550 ml 800 ml Balance 640 ml 1200 ml 440 ml Intake Oral 240 ml 750 ml 240 ml IV Total 1000 ml 1000 ml 1000 ml Output Urine Total 600 ml 550 ml 800 ml # Bowel Movements 1 1 1 Result Diagram: 11/09/1652311/09/16523 Physical Exam Physical Exam VITAL SIGNS: Reviewed GENERAL: This is a 81-year-old male resting comfortably in bed. He is in no acute distress. HEENT: Mucous membranes were mildly dry. There is no jaundice. NECK: Supple. CARDIOVASCULAR SYSTEM: Controlled rate. RESPIRATORY SYSTEM: Lungs are clear to auscultation bilaterally. GASTROINTESTINAL: Bowel sounds are present. There is no tenderness, guarding, rebound or distention. GENITOURINARY SYSTEM: A Sanchez catheter is in place. No suprapubic tenderness, no CVA tenderness. MUSCULOSKELETAL SYSTEM: No edema. Sami's is negative. Distal pulse are palpable. NEUROLOGIC EXAM: The patient is awake, alert and oriented 3 . Speech is clear and fluent. His tongue is midline. EOMs are grossly intact. Senior Technical Analyst is 5/5. He has very mild tremors in his upper extremities. Straight leg raise is negative bilaterally. Dorsi and plantar flexion are 5/5. Gait and station is not tested. A/P Assessment and Plan 1. Acute renal failure. 2. Hyponatremia. 3. Metabolic acidosis. 4. Malnutrition. 5. Elevated lipase. 6. Diabetes mellitus. 7. Recent CVA. 8. Leukocytosis. 9. History of hypertension. 10. Hyperlipidemia. 11. Tonsillectomy. DISCUSSION Labs reviewed improved renal function Leukocytosis improved Appreciate nephrology input Anemia of hydration stable H&H Metabolic acidosis improved Improved Uncontrolled sugar, improving control Increase lipase without any symptomatology Positive C. difficile. By mouth vancomycin will monitor clinically better Stable blood pressure Tolerating diet monitor I's and O's Radiology report reviewed Discussed with patient. And family at bedside Continue home medication as indicated Discussed RN Bladder scan if needed we will send with a Sanchez catheter as patient did not pass urine after taking out Sanchez physical therapy Encourage activity out of bed Plan for DC to SNF today to be followed by PCP and urology as outpatient. Discussed With: Nurse, Family ( and daughter), Other (Dr. Reed, patient seen on his behalf) Kirsten Reed MD Nov 10, 2016 13:27
[2016-11-10] MEDS ORDERED: CHOL4POW4 PO (13:31)
[2016-11-10] MEDS ORDERED: VANC500I3 PO (13:31)
--- NOTE | 2016-11-10 17:39 | HHI.DS ---
Discharge Summary Admission Date Nov 02, 2016 at 01:01 Discharge Date: Nov 10, 2016 Admitting Diagnosis Acute Renal Failure Brief History HISTORY OF PRESENT ILLNESS This was a pleasant 81-year-old male who had a recent stroke in early September. He had been in rehab. He was not feeling well. He had labs done at the rehab which showed a BUN of 143 and creatinine of 7.69 and he was sent to hospital for admission. He was a little bit forgetful. He was having some discomfort in the suprapubic area but this has been alleviated since he has had a Sanchez catheter (but he has not had much urine out, about 150 cc). The patient told the ER physician that he had been having some loose stool for the last three mornings; however, when I questioned him, he denied having any diarrhea. He stated the last bowel movement was yesterday and was normal formed. He denied nausea or vomiting. He denied fever or chills. CBC/BMP: 11/09/16 0524 11/09/16 0524 Significant Findings Laboratory Tests Test 11/08/16 11/09/16 06:35 05:24 Potassium Level 3.1 MEQ/L 3.0 MEQ/L (3.5-5.1) (3.5-5.1) Creatinine 1.31 MG/DL (0.60-1.30) Estimat Glomerular Filtration 53 ML/MIN (>89) 66 ML/MIN (>89) Rate Random Glucose 132 MG/DL (74-106) Calcium Level 7.2 MG/DL 7.1 MG/DL (8.5-10.1) (8.5-10.1) Protein Corrected Calcium 7.8 MG/DL 7.8 MG/DL (8.5-10.1) (8.5-10.1) Total Protein 5.9 GM/DL 5.8 GM/DL (6.4-8.2) (6.4-8.2) Red Blood Count 2.75 MIL/MM3 (4.50-5.90) Hemoglobin 8.9 GM/DL (13.0-17.0) Hematocrit 25.5 % (39.0-51.0) Imaging Last Impressions Abdomen/Pelvis CT 11/02/16 0014 Signed Impressions: Service Date/Time: Wednesday, November 02, 2016 00:45 - CONCLUSION: No acute disease. Ravi Cesar MD Chest X-Ray 11/01/16 3250 Signed Impressions: Service Date/Time: Tuesday, November 01, 2016 23:36 - CONCLUSION: Normal examination. Ravi Cesar MD PE at Discharge GENERAL: This was a 81-year-old male resting comfortably in bed. He was in no acute distress. HEENT: Mucous membranes were mildly dry. There was no jaundice. NECK: Supple. CARDIOVASCULAR SYSTEM: Controlled rate. RESPIRATORY SYSTEM: Lungs clear to auscultation bilaterally. GASTROINTESTINAL: Bowel sounds present. There was no tenderness, guarding, rebound or distention GENITOURINARY SYSTEM: A Sanchez catheter is in place. No suprapubic tenderness, no CVA tenderness. MUSCULOSKELETAL SYSTEM: No edema. Sami's is negative. Distal pulse are palpable. NEUROLOGIC EXAM: The patient was awake, alert and oriented 3 . Speech was clear and fluent. His tongue was midline. EOMs were grossly intact. Manager Inpatient is 5/5. He had very mild tremors in his upper extremities. Straight leg raise is negative bilaterally. Dorsi and plantar flexion are 5/5. Hospital Course Patient's plan of care was based on these initial diagnosis along with treatment regimen. 1. Acute renal failure. 2. Hyponatremia. 3. Metabolic acidosis. 4. Malnutrition. 5. Elevated lipase. 6. Diabetes mellitus. 7. Recent CVA. 8. Leukocytosis. 9. History of hypertension. 10. Hyperlipidemia. 11. Tonsillectomy. Labs reviewed throughout hospital stay and treated according to any abnormalities. During the course of treatment his renal function improved. His Leukocytosis also improved. We Appreciate nephrology input and assisted with treatment regimen on acute renal failure and hyponatremia Anemia remained stable with hydration. Labs were monitored and reviewed daily Metabolic acidosis improved during the course of treatment Patient initially had Uncontrolled sugars, but was monitored with Accu-Cheks before meals and at bedtime and sliding scale insulin. Blood sugar control was improved. Increase lipase without any symptomatology, vomiting throughout stay Patient was checked for C. difficile which was Positive. She was started on By mouth vancomycin. monitored and was clinically better Stable blood pressure, and monitored Tolerating diet out any difficulties monitor I's and O's on a 2 throughout stay Radiology report were reviewed and discussed with patient and family at bedside Continue home medication as indicated Discussed RN Bladder scan if needed we will send with a Sanchez catheter as patient did not pass urine after taking out Sanchez physical therapy to strengthen and increase mobility. She tolerated well Encourage activity out of bed Plan for DC to SNF today to be followed by PCP and urology as outpatient. Patient was stable on day of discharge Pt Condition on Discharge: Good Discharge Disposition: Discharge to SNF Discharge Instructions DIET: Follow Instructions for: Diabetic Diet Activities you can perform: Weight Bearing as [place] Follow up Referrals: PCP Follow-up - 1 Week New Medications: Cholestyramine (Cholestyramine) 4 Gm/Pkt Powd 4 GM PO Q12HR diarrhea #14 PACK Vancomycin Inj (Vancomycin Inj) 500 Mg Inj 250 MG PO QID C diff colitis Days 10 INJECTION Continued Medications: Acetaminophen (Acetaminophen) 325 Mg Tab 650 MG PO Q6HR PRN PAIN SCALE 1 TO 10 Days 30 TAB Albuterol 8.5 GM Inh (Proair Hfa 8.5 GM Inh) 90 Mcg/Act Aer 2 PUFF INH Q4HR 108 mcg/actuation PRN SHORTNESS OF BREATH #1 Ref 0 INHALER Atorvastatin (Lipitor) 80 Mg Tab 80 MG PO HS Cholesterol Management #30 TAB Dipyridamole-Aspirin (Aggrenox) 200-25 Mg Cap 1 CAP PO Q12HR Stroke Prevention #60 CAP Donepezil (Aricept) 5 Mg Tab 5 MG PO HS Days 30 TAB Fenofibrate (Tricor) 145 Mg Tab 145 MG PO DAILY Takw with food. #30 Ref 0 TAB Insulin Detemir Inj (Levemir Inj) 1,000 unit/ 10 ML Vial 20 UNITS SQ HS Days 30 INJECTION Lactobacillus (Acidophilus Probiotic) 1 Mg Tab 1 TAB PO BID Metoprolol Tartrate (Metoprolol Tartrate) 50 Mg Tab 50 MG PO BID #60 Ref 0 TAB Nystatin Topical (Nystatin Topical) 100,000 unit/gm Cream 1 APPLIC TOPICAL Q12HR Infection #1 TUBE Discontinued Medications: Doxycycline Hyclate (Doxycycline Hyclate) 100 Mg Cap 100 MG PO BID Days 7 CAP Furosemide (Lasix) 20 Mg Tab 20 MG PO DAILY #30 Ref 0 TAB Lisinopril (Lisinopril) 20 Mg Tab 20 MG PO DAILY #30 Ref 0 TAB Vera Rodrigues Nov 10, 2016 17:39
== END 2016-11-10 18:54 | DRG 683 ==
LOC: NEPC 23:18 → NEDA 11-02 01:01 → NEDH 11-02 04:26 → HCIN 11-02 09:55
PROVIDERS: ADMIT Specialist; ATTEND Specialist
PROC: 0T9B70Z Drainage of Bladder with Drainage Device, Via Natural or Artificial Opening (ICD-10-PCS; principal; 2016-11-01)
DX: N17.0 Acute kidney failure with tubular necrosis (principal); E87.1 Hypo-osmolality and hyponatremia; E46 Unspecified protein-calorie malnutrition; E87.2 Acidosis; E11.21 Type 2 diabetes mellitus with diabetic nephropathy; I69.351 Hemiplegia and hemiparesis following cerebral infarction affecting right dominant side; E86.0 Dehydration; I12.9 Hypertensive chronic kidney disease with stage 1 through stage 4 chronic kidney disease, or unspecified chronic kidney disease; E87.6 Hypokalemia; J44.9 Chronic obstructive pulmonary disease, unspecified; N18.3 Chronic kidney disease, stage 3 (moderate); D63.8 Anemia in other chronic diseases classified elsewhere; R74.8 Abnormal levels of other serum enzymes; E78.5 Hyperlipidemia, unspecified
CPT/HCPCS: 51702; 71010; 74176; 76937; 80048; 80053; 81001; 82550; 82552; 82948; 83605; 83690; 83735; 83880; 84155; 84165; 84484; 85025; 85027; 86021; 86038; 87493; 93005; C9113; J1630; J1644; J1815; J3480; J7030; J7040

== ENCOUNTER 2017-02-19 03:39 | Inpatient (IN) | payer MEDICARE, BC ==
[2017-02-19] VITALS (7 sets, daily range): BP systolic 101–128; BP diastolic 53–60; PULSE 88–111; RESP 16–20; TEMP 97–98.4; O2SAT 94–96
[~2017-02-19] VITALS: Ht 177.8 cm; Wt 109.2 kg
[~2017-02-19 03:39] MED LIST changes: +ACIDCAP PO; +CHOL4POW4 PO; -DOXY100C PO; -FURO1TAB62 PO; -LACT PO; -LISI-515 PO; +VANC500I3 PO
--- NOTE | 2017-02-19 03:55 | PD ---
HPI Chief Complaint: fever Time Seen by Provider: 03:41 Travel History International Travel<30 days: No Contact w/Intl Traveler<30days: No Traveled to known affect area: No History of Present Illness HPI 81-year-old elderly white male [place] with multiple medical issues, and current treatment for C. difficile diarrhea, presents to the ER today because he had a fever at the facility. He is afebrile currently and denies any other issues. He admits he has been having some abdominal cramping and diarrhea. He denies any vomiting or any other symptoms. Modifying Factors: None Associated Signs & Symptoms: Fevers Risk Factors: Currently getting treated for C. difficile diarrhea PFSH Past Medical History Arthritis: No Asthma: No Autoimmune Disease: No Blood Disorders: No Anxiety: No Depression: No Heart Rhythm Problems: No Cancer: No Cardiovascular Problems: Yes High Cholesterol: Yes Chemotherapy: No Chest Pain: Yes Congestive Heart Failure: No COPD: Yes Cerebrovascular Accident: No (LEFT CVA WITH RIGHT SIDE WEAKNESS, HX PREVIOUS CVA) Diabetes: Yes Diminished Hearing: No Endocrine: Yes GERD: No Glaucoma: No Genitourinary: Yes Headaches: No Hepatitis: No Hiatal Hernia: No Hypertension: Yes Immune Disorder: No Kidney Stones: No Musculoskeletal: No Neurologic: Yes Psychiatric: No Reproductive: No Respiratory: No Migraines: No Myocardial Infarction: No Radiation Therapy: No Renal Failure: Yes (MILD ACUTE RENAL FAILURE) Seizures: No Sickle Cell Disease: No Sleep Apnea: No Thyroid Disease: No Ulcer: No Past Surgical History Abdominal Surgery: No AICD: No Arteriovenous Shunt: No Cardiac Surgery: No Ear Surgery: No Endocrine Surgery: No Eye Surgery: No Genitourinary Surgery: No Gynecologic Surgery: No Insulin Pump: No Joint Replacement: No Oral Surgery: No Pacemaker: No Thoracic Surgery: No Tonsillectomy: Yes Other Surgery: Yes (tonsillectomy) Social History Alcohol Use: Yes (MODERATELY) Tobacco Use: No Substance Use: No Allergies-Medications (Allergen,Severity, Reaction): Coded Allergies: No Known Allergies (Verified , 02/19/17) Reported Meds & Prescriptions Reported Meds & Active Scripts Active Vancomycin Inj (Vancomycin HCl) 500 Mg Inj 250 Mg PO QID 10 Days Cholestyramine 4 Gm/Pkt Powd 4 Gm PO Q12HR Levemir Inj (Insulin Detemir) 1,000 unit/ 10 ML Vial 20 Units SQ HS 30 Days Acetaminophen 325 Mg Tab 650 Mg PO Q6HR PRN 30 Days Nystatin Topical (Nystatin) 100,000 unit/gm Cream 1 Applic TOPICAL Q12HR Aggrenox (Dipyridamole/Aspirin) 200-25 Mg Cap 1 Cap PO Q12HR Lipitor (Atorvastatin Calcium) 80 Mg Tab 80 Mg PO HS Proair Hfa 8.5 GM Inh (Albuterol Sulfate) 90 Mcg/Act Aer 2 Puff INH Q4HR PRN 108 mcg/actuation Metoprolol Tartrate 50 Mg Tab 50 Mg PO BID Tricor (Fenofibrate) 145 Mg Tab 145 Mg PO DAILY Takw with food. Reported Xanax (Alprazolam) 0.25 Mg Tab 0.25 Mg PO Q12HR PRN Vit C-Bertha Hips 500 mg Chew Tb (Ascorbic Acid/Ascorbate Sodium) 500 Mg Tab.chew 500 Mg PO BID Tradjenta (Linagliptin) 5 Mg Tab 10 Mg PO DAILY Santyl Topical (Collagenase) 250 Unit/Gm Oint 1 Applic TOPICAL DAILY Remeron (Mirtazapine) 15 Mg Tab 15 Mg PO HS Poly-Iron 150 (Polysaccharide Iron Complex) 150 Mg Cap 150 Mg PO DAILY Nystatin Topical (Nystatin) 100,000 unit/gm Cream 1 Applic TOPICAL BID Novolog Inj (Insulin Aspart) 1,000 Unit/10 Ml Vial 0 SQ DIRECTED Sliding Scale as directed. Multi Vitamin and Mineral (Multiple Vitamins W/ Minerals) 1 Tab Tab Neurontin (Gabapentin) 300 Mg Cap 300 Mg PO TID Aricept (Donepezil HCl) 10 Mg Tablet PO HS Acidophilus Probiotic Capsule (L. Acidophilus/Pectin, Coke) 1 Each Capsule PO BID Review of Systems Except as stated in HPI: all other systems reviewed are Neg Physical Exam Narrative GENERAL: Well-developed elderly white male patient currently in no acute distress. Awake, alert, not oriented to time. SKIN: Focused skin assessment warm/dry. There is notable left great toe distal 1 cm developing ulcer with greenish drainage and surrounding erythema. HEAD: Atraumatic. Normocephalic. EYES: Pupils equal and round. No scleral icterus. No injection or drainage. ENT: No nasal bleeding or discharge. Mucous membranes pink and moist. NECK: Trachea midline. No JVD. CARDIOVASCULAR: Regular rate and rhythm. No murmur appreciated. RESPIRATORY: No accessory muscle use. Clear to auscultation. Breath sounds equal bilaterally. GASTROINTESTINAL: Abdomen soft, non-tender, nondistended. Hepatic and splenic margins not palpable. MUSCULOSKELETAL: No obvious deformities. No clubbing. No cyanosis. No edema. NEUROLOGICAL: Awake and alert. No obvious cranial nerve deficits. Motor grossly within normal limits. Normal speech. PSYCHIATRIC: Appropriate mood and affect; insight and judgment normal. Data Data Last Documented VS Vital Signs Date Time Temp Pulse Resp B/P Pulse Ox O2 Delivery O2 Flow Rate FiO2 02/19/17 04:00 18 96 Room Air 02/19/17 03:54 97.8 99 110/55 Orders Complete Blood Count With Diff (02/19/17 03:41) Comprehensive Metabolic Panel (02/19/17 03:41) Lactic Acid Sepsis Protocol (02/19/17 03:41) Urinalysis - C+S If Indicated (02/19/17 03:41) Influenzae A/B Antigen (02/19/17 03:41) Blood Culture (02/19/17 03:41) Chest, Single Ap (02/19/17 03:41) Blood Glucose (02/19/17 03:41) Ecg Monitoring (02/19/17 03:41) Iv Access Insert/Monitor (02/19/17 03:41) Oximetry (02/19/17 03:41) Oxygen Administration (02/19/17 03:41) Toe (Min 2vws) (02/19/17 03:42) Sodium Chlorid 0.9% 500 Ml Inj (Ns 500 M (02/19/17 04:45) Piperacil-Tazo 4.5 Gm Premix (Zosyn 4.5 (02/19/17 05:00) Vancomycin Inj (Vancomycin Inj) (02/19/17 05:00) Admit Order (Ed Use Only) (02/19/17 05:04) Labs Laboratory Tests Test 02/19/17 02/19/17 02/19/17 03:45 03:49 03:51 Sodium Level 141 MEQ/L Potassium Level 3.4 MEQ/L Chloride Level 113 MEQ/L Carbon Dioxide Level 17.8 MEQ/L Anion Gap 10 MEQ/L Blood Urea Nitrogen 54 MG/DL Creatinine 2.23 MG/DL Estimat Glomerular Filtration 29 ML/MIN Rate Random Glucose 156 MG/DL Calcium Level 8.0 MG/DL Total Bilirubin 0.2 MG/DL Aspartate Amino Transf 17 U/L (AST/SGOT) Alanine Aminotransferase 15 U/L (ALT/SGPT) Alkaline Phosphatase 61 U/L Total Protein 6.4 GM/DL Albumin 2.0 GM/DL White Blood Count 16.0 TH/MM3 Red Blood Count 3.36 MIL/MM3 Hemoglobin 10.1 GM/DL Hematocrit 30.3 % Mean Corpuscular Volume 90.1 FL Mean Corpuscular Hemoglobin 30.2 PG Mean Corpuscular Hemoglobin 33.5 % Concent Red Cell Distribution Width 14.9 % Platelet Count 561 TH/MM3 Mean Platelet Volume 7.9 FL Neutrophils (%) (Auto) 74.8 % Lymphocytes (%) (Auto) 11.7 % Monocytes (%) (Auto) 12.2 % Eosinophils (%) (Auto) 0.5 % Basophils (%) (Auto) 0.8 % Neutrophils # (Auto) 12.0 TH/MM3 Lymphocytes # (Auto) 1.9 TH/MM3 Monocytes # (Auto) 2.0 TH/MM3 Eosinophils # (Auto) 0.1 TH/MM3 Basophils # (Auto) 0.1 TH/MM3 CBC Comment DIFF FINAL Differential Comment Lactic Acid Level 1.3 mmol/L MDM Medical Decision Making Medical Screen Exam Complete: Yes Emergency Medical Condition: Yes Medical Record Reviewed: Yes Interpretation(s) Laboratory Tests Test 02/19/17 02/19/17 03:45 03:49 Potassium Level 3.4 MEQ/L (3.5-5.1) Chloride Level 113 MEQ/L (98-107) Carbon Dioxide Level 17.8 MEQ/L (21.0-32.0) Blood Urea Nitrogen 54 MG/DL (7-18) Creatinine 2.23 MG/DL (0.60-1.30) Estimat Glomerular Filtration 29 ML/MIN (>89) Rate Random Glucose 156 MG/DL (74-106) Calcium Level 8.0 MG/DL (8.5-10.1) Albumin 2.0 GM/DL (3.4-5.0) White Blood Count 16.0 TH/MM3 (4.0-11.0) Red Blood Count 3.36 MIL/MM3 (4.50-5.90) Hemoglobin 10.1 GM/DL (13.0-17.0) Hematocrit 30.3 % (39.0-51.0) Platelet Count 561 TH/MM3 (150-450) Neutrophils (%) (Auto) 74.8 % (16.0-70.0) Monocytes (%) (Auto) 12.2 % (0.0-8.0) Neutrophils # (Auto) 12.0 TH/MM3 (1.8-7.7) Monocytes # (Auto) 2.0 TH/MM3 (0-0.9) Last 24 hours Impressions Toe X-Ray 02/19/17 0342 Signed Impressions: Service Date/Time: Sunday, February 19, 2017 03:44 - CONCLUSION: On both the AP and oblique films there is questionable bone loss involving the dorsal medial tip of the first distal phalangeal bone raises the possibility of osteomyelitis. Ho Chavarria MD Chest X-Ray 02/19/17340 Signed Impressions: Service Date/Time: Sunday, February 19, 2017 03:41 - CONCLUSION: Normal examination. Ho Chavarria MD Differential Diagnosis Feverssepsis versus influenza versus pneumonia versus C. difficile diarrhea related versus foot ulcers/osteomyelitis Narrative Course Patient's toe appears to have an infected ulcer. Lab work and x-rays were done. It shows osteomyelitis an underlying sepsis. His renal function is also worsens. Patient was given IV fluids in the ER but only 500 cc was given at a time due to uncertainty about cardiac status. IV antibiotics were initiated after cultures are drawn. At this point, my plan would be to admit the patient for further treatment. Case was discussed with Dr. Kunz for admission. Diagnosis Primary Impression: Toe osteomyelitis, left Additional Impressions: Sepsis Acute renal failure Admitting Information Admitting Physician Requests: Admit Lida Streeter MD February 19, 2017 03:55
[2017-02-19 04:08] LABS: BASOPHIL # 0.1 TH/MM3 (0-0.2); BASOPHIL % 0.8 % (0.0-2.0); EOSINOPHIL # 0.1 TH/MM3 (0-0.4); EOSINOPHIL % 0.5 % (0.0-4.0); HEMATOCRIT 30.3 % (39.0-51.0); HEMO FLAGS DIFF FINAL; LYMPH % 11.7 % (9.0-44.0); LYMPHOCYTE # 1.9 TH/MM3 (1.0-4.8); MEAN CELL VOLUME 90.1 FL (80.0-100.0); MEAN CORPUSCULAR HEMOGLOBIN 30.2 PG (27.0-34.0); MEAN CORPUSCULAR HGB CONC 33.5 % (32.0-36.0); MONO % 12.2 % (0.0-8.0); NEUT % 74.8 % (16.0-70.0); PLATELET COUNT 561 TH/MM3 (150-450); RED BLOOD COUNT 3.36 MIL/MM3 (4.50-5.90); RED CELL DISTRIBUTION WIDTH 14.9 % (11.6-17.2)
[2017-02-19] MEDS ORDERED: COLL30T TOPICAL (04:15)
[2017-02-19] MEDS ORDERED: ARIC10TA2 PO (04:15)
[2017-02-19] MEDS ORDERED: ALPR.25 PO (04:15)
[2017-02-19] MEDS ORDERED: [UNRECOGNIZED DRUG - OTHER] PO (04:15)
[2017-02-19] MEDS ORDERED: REME15TA PO (04:15)
[2017-02-19] MEDS ORDERED: NU-IRON PO (04:15)
[2017-02-19] MEDS ORDERED: NEUR300C PO (04:15)
[2017-02-19] MEDS ORDERED: NYST15T TOPICAL (04:15)
[2017-02-19] MEDS ORDERED: TRAD5TAB PO (04:15)
[2017-02-19] MEDS ORDERED: MULT-142 (04:15)
[2017-02-19] MEDS ORDERED: [UNRECOGNIZED DRUG - CODE] PO (04:15)
[2017-02-19] MEDS ORDERED: NOVOLOGP2 SQ (04:15)
[2017-02-19 04:31] LABS: ALT (GPT) 15 U/L (12-78); ANION GAP 10 MEQ/L (5-15); AST (GOT) 17 U/L (15-37); BICARBONATE 17.8 MEQ/L (21.0-32.0); BLOOD UREA NITROGEN 54 MG/DL (7-18); CHLORIDE 113 MEQ/L (98-107); GLOMERULAR FILTRATION RATE 29 ML/MIN (>89); POTASSIUM 3.4 MEQ/L (3.5-5.1); SODIUM (NA) 141 MEQ/L (136-145)
[2017-02-19 04:32] LABS: ALKALINE PHOSPHATASE 61 U/L (45-117); TOTAL BILIRUBIN ADULT 0.2 MG/DL (0.2-1.0)
[2017-02-19] MEDS ORDERED: SODIUM CHLORID 0.9% 500 ML INJ 500 ML IV ONE (04:45)
--- NOTE | 2017-02-19 04:57 | RADRPT ---
EXAM DATE/TIME: 02/19/2017 03:41 [facility] COMPARISON: CHEST SINGLE AP, November 01, 2016, 23:36. INDICATIONS : Shortness of breath. MEDICAL HISTORY : Hypertension. Diabetes mellitus type II. SURGICAL HISTORY : None. ENCOUNTER: Initial ACUITY: 1 day PAIN SCORE: Non-responsive. LOCATION: Bilateral chest FINDINGS: A single view of the chest demonstrates the lungs to be symmetrically aerated without evidence of mas s, infiltrate or effusion. The cardiomediastinal contours are unremarkable. Osseous structures are intact. CONCLUSION: Normal examination. Ho Chavarria MD on February 19, 2017 at 4:55 Board Certified Radiologist. This report was verified electronically.
--- NOTE | 2017-02-19 04:58 | RADRPT ---
EXAM DATE/TIME: 02/19/2017 03:44 [facility] COMPARISON: No previous studies available for comparison. INDICATIONS : Left great toe pain. MEDICAL HISTORY : Diabetes mellitus type II. SURGICAL HISTORY : None. ENCOUNTER: Initial ACUITY: 1 day PAIN SCORE: Non-responsive. LOCATION: Left foot, great toe. FINDINGS: Examination of the first digit of the left foot demonstrates no evidence of fracture or dislocation. On both the AP and oblique films there is questionable bone loss involving the dorsal medial tip of the first distal phalangeal bone raises the possibility of osteomyelitis No radiopaque foreign bodies are seen. The soft tissues are intact. Severe atherosclerotic disease CONCLUSION: On both the AP and oblique films there is questionable bone loss involving the dorsal medial tip of t he first distal phalangeal bone raises the possibility of osteomyelitis. Ho Chavarria MD on February 19, 2017 at 4:56 Board Certified Radiologist. This report was verified electronically.
[2017-02-19] MEDS ORDERED: VANCOMYCIN INJ 1,000 MG in SODIUM CHLOR 0.9% 250 ML INJ 250 ML IV STA (05:00)
[2017-02-19] MEDS ORDERED: PIPERACIL-TAZO 4.5 GM PREMIX 100 ML IV STA (05:00)
[2017-02-19] MEDS ORDERED: ALBUTEROL SULFATE 90 MCG/ACT HFA 18 GM INHALER INH PRN (05:30)
[2017-02-19] MEDS ORDERED: GLUCAGON 1 MG/ML VIAL OTHER PRN (05:30)
[2017-02-19] MEDS ORDERED: ACETAMINOPHEN 325 MG TAB PO PRN (05:30)
[2017-02-19] MEDS ORDERED: LACTULOSE SYRUP 20 GM/30 ML CUP PO PRN (05:30)
[2017-02-19] MEDS ORDERED: ONDANSETRON HCL 4 MG/2 ML VIAL IVP PRN (05:30)
[2017-02-19] MEDS ORDERED: ACETAMINOPHEN/HYDROcodone 325 MG/5 MG TAB PO PRN (05:30)
[2017-02-19] MEDS ORDERED: DEXTROSE 50% IN WATER 50 ML VIAL(D50) IV PRN (05:30)
[2017-02-19] MEDS ORDERED: BISACODYL 10 MG SUPP RECTAL PRN (05:30)
[2017-02-19] MEDS ORDERED: MORPHINE SULFATE 4 MG/ML INJ IV PRN (05:30)
[2017-02-19] MEDS ORDERED: SENNOSIDES 8.6 MG TAB PO PRN (05:30)
[2017-02-19] MEDS ORDERED: MAGNESIUM HYDROXIDE SUSP 30 ML CUP PO PRN (05:30)
[2017-02-19] MEDS ORDERED: SODIUM CHLORIDE 0.9% FLUSH 10 ML FLUSH IV FLUSH PRN (05:30)
[2017-02-19] MEDS ORDERED: Vancomycin Consult Pharmacy 1 EA OTHER SCH (05:30)
[2017-02-19] MEDS ORDERED: ALPRAZolam 0.25 MG TAB PO PRN (05:30)
--- NOTE | 2017-02-19 05:40 | HHI.HP ---
[facility] Service [facility] Primary Care Physician Unknown Admission Diagnosis sepsis/toe osteomyelitis/ARF Diagnoses: (1) Sepsis Diagnosis: Principal (2) Toe osteomyelitis, left Diagnosis: Principal (3) C. difficile colitis Diagnosis: Principal (4) NASREEN (acute kidney injury) Diagnosis: Principal (5) DM (diabetes mellitus) Diagnosis: Principal Travel History International Travel<30 Days: No Contact w/Intl Traveler <30 Da: No Traveled to Known Affected Are: No History of Present Illness This is a 81-year-old male with a PMH of h/o CVA w/ Residual Right-Sided Hemiparesis, HTN, C Diff, DM and Hyperlipidemia who was [facility]. Pt without significant complaints except for occasional abdominal pain, reports ongoing diarrhea which is unchanged. On arrival, BP 110/55, HR 99, O2 sat 96% on RA, Afebrile. WBC 16. Creatinine 2.23 , previously 1.15 on 11/27/16. Lactic Acid 1.3. UA pending. CXR with no acute findings. Left Toe X-ray with questionable bone loss involving dorsal medial tip of first distal phalangeal bone, possibly osteomyelitis. S/p Blood Cultures , Vanc/Zosyn in ER. Review of Systems Except as stated in HPI: all other systems reviewed are Neg ROS: 14 point review of systems otherwise negative. Past Family Social History Past Medical History PMH: CVA w/ Residual Right-Sided Hemiparesis, HTN, C Diff, DM and Hyperlipidemia Past Surgical History PAST SURGICAL HISTORY: Tonsillectomy Allergies: Coded Allergies: No Known Allergies (Verified , 02/19/17) Family History PAST FAMILY HISTORY: Reviewed. No h/o DM or CAD Social History PAST SOCIAL HISTORY: Positive for alcohol. Negative for tobacco or drugs. Physical Exam Vital Signs Vital Signs Date Time Temp Pulse Resp B/P Pulse Ox O2 Delivery O2 Flow Rate FiO2 02/19/17 04:00 18 96 Room Air 02/19/17 03:54 97.8 99 18 110/55 96 Physical Exam PE: GENERAL: Elderly white male in no acute distress. HEENT: PERRLA, EOMI. No scleral icterus or conjunctival pallor. No lid lag or facial droop. CARDIOVASCULAR: Regular rate and rhythm. No obvious murmurs to auscultation. No chest tenderness to palpation. RESPIRATORY: No obvious rhonchi or wheezing. Clear to auscultation. Breath sounds equal bilaterally. GASTROINTESTINAL: Abdomen soft, non-tender, nondistended. BS normal. MUSCULOSKELETAL: Extremities without clubbing, cyanosis, or edema. No obvious deformities. Left toe with erythema and ulcer, purulent drainage noted NEUROLOGICAL: Awake, alert and oriented x4. No focal neurologic deficits. Moving both upper and lower extremities spontaneously. Laboratory Laboratory Tests Test 02/19/17 02/19/17 02/19/17 03:45 03:49 03:51 Sodium Level 141 Potassium Level 3.4 Chloride Level 113 Carbon Dioxide Level 17.8 Anion Gap 10 Blood Urea Nitrogen 54 Creatinine 2.23 Estimat Glomerular Filtration 29 Rate Random Glucose 156 Calcium Level 8.0 Total Bilirubin 0.2 Aspartate Amino Transf 17 (AST/SGOT) Alanine Aminotransferase 15 (ALT/SGPT) Alkaline Phosphatase 61 Total Protein 6.4 Albumin 2.0 White Blood Count 16.0 Red Blood Count 3.36 Hemoglobin 10.1 Hematocrit 30.3 Mean Corpuscular Volume 90.1 Mean Corpuscular Hemoglobin 30.2 Mean Corpuscular Hemoglobin 33.5 Concent Red Cell Distribution Width 14.9 Platelet Count 561 Mean Platelet Volume 7.9 Neutrophils (%) (Auto) 74.8 Lymphocytes (%) (Auto) 11.7 Monocytes (%) (Auto) 12.2 Eosinophils (%) (Auto) 0.5 Basophils (%) (Auto) 0.8 Neutrophils # (Auto) 12.0 Lymphocytes # (Auto) 1.9 Monocytes # (Auto) 2.0 Eosinophils # (Auto) 0.1 Basophils # (Auto) 0.1 CBC Comment DIFF FINAL Differential Comment Lactic Acid Level 1.3 Date/Time Procedure Status Source Growth 02/19/17 03:50 Aerobic Blood Culture Received Blood Peripheral Pending 02/19/17 03:50 Anaerobic Blood Culture Received Blood Peripheral Pending Result Diagram: 02/19/17 0349 02/19/17 6315 Assessment and Plan Problem List: (1) Sepsis ICD Code: A41.9 Status: Acute (2) Toe osteomyelitis, left ICD Code: M86.9 Status: Acute (3) C. difficile colitis ICD Code: A04.7 Status: Acute (4) NASREEN (acute kidney injury) ICD Code: N17.9 Status: Acute (5) DM (diabetes mellitus) ICD Code: E11.9 Status: Acute Assessment and Plan A/P: 1. Sepsis: Fever at SNF, WBC 16, HR 99, Source-Osteomyelitis/C Diff. S/p Blood Cultures, Vanc/Zosyn in ER, will follow up cultures, continue IV Abx. Follow up U/a, currently pending. 2. Left Toe Osteomyelitis: X-ray w/ questionable bone loss involving dorsal medial tip of first distal phalangeal bone, possibility of osteomyelitis, images reviewed by me. Consult Podiatry for further evaluation. 3. C Diff: Currently on treatment per review of long term records w/ Vanc PO qid, +ongoing diarrhea however improved. Will continue w/ Vanc PO. Isolation Precautions. 4. NASREEN: Creatinine 2.23, previously 1.15 on 11/27/16. Likely secondary to dehydration from chronic diarrhea and acute sepsis. UA pending, will follow up , IVF for hydration, repeat labs in a.m. 5. DM: Sliding scale with Accu-Cheks. Hold long-acting insulin for now in light of sepsis to avoid hypoglycemia. 6. DVT Prophylaxis: Mechanical Contraindication in light of lower extremity wound 7. Social work for DC planning as needed. 8. Case discussed at length with ER physician. Physician Certification 2 Midnight Certification Type: Admission for Inpatient Services Order for Inpatient Services The services are ordered in accordance with Medicare regulations or non- Medicare payer requirements, as applicable. In the case of services not specified as inpatient-only, they are appropriately provided as inpatient services in accordance with the 2-midnight benchmark. Estimated LOS (days): 2 days is the estimated time the patient will need to remain in the hospital, assuming treatment plan goals are met and no additional complications. Post-Hospital Plan: Not yet determined Radha Kunz MD February 19, 2017 05:40
[2017-02-19] MEDS: SODIUM CHLOR 0.9% 1000 ML INJ 1,000 ML IV SCH ×2 (06:31→15:25)
[2017-02-19] MEDS: INSULIN ASPART SUPPLEMENTAL SCALE SQ SCH ×4 (07:00→21:00)
--- NOTE | 2017-02-19 08:36 | PD.CONS ---
History of Present Illness Service Podiatry Consult Requested By Reason for Consult Left foot toe ulcer Primary Care Physician Unknown Diagnoses: History of Present Illness Pt somnolent at bedside, unable to obtain history form patient. Pt in normal breathing and appearing comfortable Past Family Social History Allergies: Coded Allergies: No Known Allergies (Verified , 02/19/17) Physical Exam Vital Signs Vital Signs Date Time Temp Pulse Resp B/P Pulse Ox O2 Delivery O2 Flow Rate FiO2 02/19/17 08:00 97.6 88 19 113/56 94 02/19/17 04:00 18 96 Room Air 02/19/17 03:54 97.8 99 18 110/55 96 Physical Exam GENERAL: This is a well-nourished, well-developed patient, in no apparent distress. SKIN: No rashes, ecchymoses or lesions. Cool and dry. HEAD: Atraumatic. Normocephalic. No temporal or scalp tenderness. EYES: Pupils equal round and reactive. Extraocular motions intact. No scleral icterus. No injection or drainage. ENT: Nose without bleeding, purulent drainage or septal hematoma. Throat without erythema, tonsillar hypertrophy or exudate. Uvula midline. Airway patent. NECK: Trachea midline. No JVD or lymphadenopathy. Supple, nontender, no meningeal signs. CARDIOVASCULAR: Regular rate and rhythm without murmurs, gallops, or rubs. RESPIRATORY: Clear to auscultation. Breath sounds equal bilaterally. No wheezes , rales, or rhonchi. GASTROINTESTINAL: Abdomen soft, non-tender, nondistended. No hepato-splenomegaly , or palpable masses. No guarding. MUSCULOSKELETAL: Extremities without clubbing, cyanosis, or edema. No joint tenderness, effusion, or edema noted. No calf tenderness. Negative Homans sign bilaterally. NEUROLOGICAL: Awake and alert. Cranial nerves II through XII intact. Motor and sensory grossly within normal limits. Five out of 5 muscle strength in all muscle groups. Normal speech. Laboratory Laboratory Tests Test 02/19/17 02/19/17 02/19/17 03:45 03:49 03:51 Sodium Level 141 Potassium Level 3.4 Chloride Level 113 Carbon Dioxide Level 17.8 Anion Gap 10 Blood Urea Nitrogen 54 Creatinine 2.23 Estimat Glomerular Filtration 29 Rate Random Glucose 156 Calcium Level 8.0 Total Bilirubin 0.2 Aspartate Amino Transf 17 (AST/SGOT) Alanine Aminotransferase 15 (ALT/SGPT) Alkaline Phosphatase 61 Total Protein 6.4 Albumin 2.0 White Blood Count 16.0 Red Blood Count 3.36 Hemoglobin 10.1 Hematocrit 30.3 Mean Corpuscular Volume 90.1 Mean Corpuscular Hemoglobin 30.2 Mean Corpuscular Hemoglobin 33.5 Concent Red Cell Distribution Width 14.9 Platelet Count 561 Mean Platelet Volume 7.9 Neutrophils (%) (Auto) 74.8 Lymphocytes (%) (Auto) 11.7 Monocytes (%) (Auto) 12.2 Eosinophils (%) (Auto) 0.5 Basophils (%) (Auto) 0.8 Neutrophils # (Auto) 12.0 Lymphocytes # (Auto) 1.9 Monocytes # (Auto) 2.0 Eosinophils # (Auto) 0.1 Basophils # (Auto) 0.1 CBC Comment DIFF FINAL Differential Comment Lactic Acid Level 1.3 Date/Time Procedure Status Source Growth 02/19/17 03:50 Aerobic Blood Culture Received Blood Peripheral Pending 02/19/17 03:50 Anaerobic Blood Culture Received Blood Peripheral Pending Result Diagram: 02/19/17 0349 02/19/17 0345 Imaging Xray shows changed left hallux of concern of osteo Course LEft foot no edema No pulses felt Foot warm Scabs around ipj of lesser toes, no ulcers seen there Left hallux distal ulcer about 1.2cm with fibrotic tissue with mild localized redness no probe to bone Assessment and Plan Assessment and Plan Left hallux ulcer, DM II pt Plan is obtain ARIADNE, obtain MRI Clinically no sign of spreading infection, localized to toe IV antibiotics and get tests to assess if needs toe amputation Thanks for the consult Juan Manuel Abdalla DPM February 19, 2017 08:36
[2017-02-19] MEDS: COLLAGENASE OINT 30 GM TUBE TOPICAL SCH (09:00)
[2017-02-19] MEDS: DOCUSATE SODIUM 50 MG/SENNA 8.6 MG TAB PO SCH ×2 (09:00→21:30)
[2017-02-19] MEDS: NYSTATIN 100,000 UNIT/GM CREAM 15 GM TOPICAL SCH ×2 (09:00→21:34)
[2017-02-19] MEDS: GABAPENTIN 300 MG CAP PO SCH ×3 (09:03→17:24)
[2017-02-19] MEDS: ASCORBIC ACID 500 MG TAB PO SCH ×2 (09:03→21:30)
[2017-02-19] MEDS: DIPYRIDAMOLE/ASPIRIN 200 MG/25 MG CAP PO SCH ×2 (09:03→21:30)
[2017-02-19] MEDS: VANCOMYCIN 500 MG VIAL (FOR ORAL USE ONLY) PO SCH ×4 (09:03→21:31)
[2017-02-19] MEDS: SODIUM CHLORIDE 0.9% FLUSH 10 ML FLUSH IV FLUSH SCH ×2 (09:04→21:00)
[2017-02-19] MEDS ORDERED: VANCOMYCIN 500 MG/NS 100 ML IV ONE ×2 (11:00)
--- NOTE | 2017-02-19 11:14 | RADRPT ---
EXAM DATE/TIME: 02/19/2017 10:09 [facility] COMPARISON: TOE LEFT 1ST DIGIT (MIN 2VWS), February 19, 2017, 3:44. INDICATIONS : Left great toe pain. MEDICAL HISTORY : Cerebrovascular disease. Renal failure, acute. Benign prostatic hyperplasia, (BPH) SURGICAL HISTORY : Tonsillectomy. ENCOUNTER: Initial ACUITY: 1 day PAIN SCORE: Nonresponsive. LOCATION: Left great toe. TECHNIQUE: Multiplanar, multisequence MRI examination was performed without contrast. FINDINGS: Examination quality is degraded by motion artifact. There is also inhomogeneous fat suppression on th e T2 fat suppressed series. There clearly is edema involving the entire distal phalanx of the first d igit on the inversion recovery images. However, I cannot be confidently there is any definite decreas ed signal on the T1 series. There is questionable decreased signal at the tuft of the distal phalanx. No fluid collection or abscess is visualized. There is mild osteoarthritis at the first metatarsophalangeal joint. Remaining bones of the foot demo nstrate no acute finding. CONCLUSION: Bone marrow edema of the distal phalanx of the first digit. Based on imaging findings and limitations without contrast I cannot confidently diagnose or exclude osteomyelitis at the tuft of the distal ph alanx. Suggest followup to evaluate for change. Guy Gordon MD on February 19, 2017 at 11:08 Board Certified Radiologist. This report was verified electronically.
--- NOTE | 2017-02-19 11:25 | HHI.PR ---
Subjective Remarks Patient seen after getting an MRI. He has no complaints. His nurses at the bedside and stated that patient does have diarrhea but is more greenish like family look like C. difficile to her. Patient denies any pain. Patient stated that he is cold and that's why he shaking. He denies any fevers. Objective Vitals Vital Signs Date Time Temp Pulse Resp B/P Pulse Ox O2 Delivery O2 Flow Rate FiO2 02/19/17 08:00 97.6 88 19 113/56 94 02/19/17 04:00 18 96 Room Air 02/19/17 03:54 97.8 99 18 110/55 96 Result Diagram: 02/19/17 0349 02/19/17 0345 Objective Remarks GENERAL: Elderly white male in no acute distress. HEENT: PERRLA, EOMI. No scleral icterus or conjunctival pallor. No lid lag or facial droop. CARDIOVASCULAR: Regular rate and rhythm. No obvious murmurs to auscultation. No chest tenderness to palpation. RESPIRATORY: No obvious rhonchi or wheezing. Clear to auscultation. Breath sounds equal bilaterally. GASTROINTESTINAL: Abdomen soft, non-tender, nondistended. BS normal. MUSCULOSKELETAL: Extremities without clubbing, cyanosis, or edema. No obvious deformities. Left toe with erythema and ulcer, purulent drainage noted NEUROLOGICAL: Awake, alert and oriented x4. No focal neurologic deficits. Moving both upper and lower extremities spontaneously. Medications and IVs Current Medications Sodium Chloride 500 ml @ 500 mls/hr BOLUS ONCE IV Last administered on 05:00; Start 02/19/17 at 04:45; Stop 02/19/17 at 05:44; Status DC Piperacillin Sod/ Tazobactam Sod 100 ml @ 200 mls/hr ONCE STAT IV Last administered on 02/19/17 05:11; Start 02/19/17 at 05:00; Stop 02/19/17 at 05:29 ; Status DC Vancomycin HCl/ Sodium Chloride (Vancomycin Inj/ NS 250 ml Inj) 250 ml @ 250 mls/hr ONCE STAT IV Last administered on 02/19/17 05:12; Start 02/19/17 at 05 :00; Stop 02/19/17 at 05:59; Status DC Donepezil HCl 10 mg 10 mg HS PO ; Start 02/19/17 at 21:00 Pharmacy Profile Note 0 ml @ 0 mls/hr UNSCH OTHER ; Start 02/19/17 at 05:30 Cefepime HCl/ Sodium Chloride (Maxipime Inj/NS Inj) 100 ml @ 200 mls/hr Q24H IV ; Start 02/20/17 at 06:00 Dextrose (D50w (Vial) Inj) 50 ml UNSCH PRN IV HYPOGLYCEMIA-SEE COMMENTS; Start 02/19/17 at 05:30 Glucagon (Glucagon Inj) 1 mg UNSCH PRN OTHER HYPOGLYCEMIA-SEE COMMENTS; Start 02/19/17 at 05:30 Insulin Aspart 1 1 ACHS SLIDING SCALE SQ ; Start 02/19/17 at 07:00 Sodium Chloride (NS 1000 ml Inj) 1,000 ml @ 100 mls/hr Q10H IV Last administered on 02/19/17 06:31; Start 02/19/17 at 05:25 Sodium Chloride (NS Flush) 2 ml UNSCH PRN IV FLUSH FLUSH AFTER USING IV ACCESS ; Start 02/19/17 at 05:30 Sodium Chloride (NS Flush) 2 ml BID IV FLUSH Last administered on 02/19/17 09: 04; Start 02/19/17 at 09:00 Ondansetron HCl (Zofran Inj) 4 mg Q6H PRN IVP NAUSEA OR VOMITING; Start at 05:30 Acetaminophen (Tylenol) 650 mg Q6H PRN PO FEVER/PAIN SCALE 1 TO 2; Start at 05:30 Acetaminophen/ Hydrocodone Bitart ([place] 5-325 Mg) 1 tab Q4H PRN PO PAIN SCALE 3 TO 5; Start 02/19/17 at 05:30 Morphine Sulfate (Morphine Inj) 2 mg Q3H PRN IV Pain 6-10; Start 02/19/17 at 05 :30 Senna/Docusate Sodium (Yashira-Colace) 1 tab BID PO ; Start 02/19/17 at 09:00 Magnesium Hydroxide (Milk Of Magnesia Liq) 30 ml Q12H PRN PO MILD - MODERATE CONSTIPATION; Start 02/19/17 at 05:30 Sennosides (Senokot) 17.2 mg Q12H PRN PO MODERATE - SEVERE CONSTIPATION; Start 02/19/17 at 05:30 Bisacodyl (Dulcolax Supp) 10 mg DAILY PRN RECTAL SEVERE CONSITIPATION; Start at 05:30 Lactulose (Lactulose Liq) 30 ml DAILY PRN PO SEVERE CONSITIPATION; Start at 05:30 Albuterol Sulfate (Ventolin Hfa Inh) 2 puff Q4HR PRN INH SHORTNESS OF BREATH; Start 02/19/17 at 05:30 Alprazolam (Xanax) 0.25 mg Q12HR PRN PO ANXIETY; Start 02/19/17 at 05:30 Cholestyramine Resin (Questran 4 Gm Pkt) 4 gm Q12H PO ; Start 02/19/17 at 06:00 Collagenase (Santyl Oint) 1 applic DAILY TOPICAL ; Start 02/19/17 at 09:00 Dipyridamole/ Aspirin (Aggrenox 200-25 Mg) 1 cap Q12HR PO Last administered on 02/19/17 09:03; Start 02/19/17 at 09:00 Gabapentin (Neurontin) 300 mg TID PO Last administered on 02/19/17 09:03; Start 02/19/17 at 09:00 Mirtazapine (Remeron) 15 mg HS PO ; Start 02/19/17 at 21:00 Nystatin (Mycostatin Cream) 1 applic Q12HR TOPICAL Last administered on 09:00; Start 02/19/17 at 09:00 Ascorbic Acid (Vitamin C) 500 mg BID PO Last administered on 02/19/17 09:03; Start 02/19/17 at 09:00 Vancomycin HCl 250 mg 250 mg QID PO Last administered on 02/19/17 09:03; Start 02/19/17 at 09:00 Vancomycin HCl/ Sodium Chloride (Vancomycin Inj/ NS Inj) 100 ml @ 200 mls/hr ONCE ONCE IV ; Start 02/19/17 at 11:00; Stop 02/19/17 at 11:29; Status DC A/P Problem List: (1) Sepsis ICD Code: A41.9 Status: Acute (2) Toe osteomyelitis, left ICD Code: M86.9 Status: Acute (3) C. difficile colitis ICD Code: A04.7 Status: Acute (4) NASREEN (acute kidney injury) ICD Code: N17.9 Status: Acute (5) DM (diabetes mellitus) ICD Code: E11.9 Status: Acute Assessment and Plan Sepsis - Fever at SNF, WBC 16, HR 99, Source-Osteomyelitis/C Diff. - S/p Blood Cultures, Vanc/Zosyn in ER, will follow up cultures, continue IV Abx. Follow up U/a, currently pending. Left Toe Osteomyelitis: - X-ray w/ questionable bone loss involving dorsal medial tip of first distal phalangeal bone, possibility of osteomyelitis -pending MRi report. C Diff: - Currently on treatment per review of [facility] records w/ Vanc PO qid, + ongoing diarrhea however improved. Will continue w/ Vanc PO. Isolation Precautions. NASREEN: - Creatinine 2.23, previously 1.15 on 11/27/16. Likely secondary to dehydration from chronic diarrhea and acute sepsis. -continue to monitor. -Avoid nephrotoxins. DM: - Sliding scale with Accu-Cheks. Hold long-acting insulin for now in light of sepsis to avoid hypoglycemia. DVT Prophylaxis: Mechanical Contraindication in light of lower extremity wound Discharge Planning Patient continued to require IV antibiotics pending workup. Svetlana Rodriges MD February 19, 2017 11:25
[2017-02-19] MEDS: CHOLESTYRAMINE 4 GM PACKET PO SCH ×2 (12:01→17:24)
[2017-02-19 17:47] LABS: BLOOD, URINE SMALL (NEG); GLUCOSE,URINE NEG (NEG); HYALINE CAST, URINE 8 /lpf (RARE); KETONE, URINE NEG (NEG); NITRITE,URINE NEG (NEG); URINE COLOR YELLOW (YELLW/STRAW)
[2017-02-19 17:49] LABS: COMMENT (UR) CATH-CULTURE IND; CULTURE IF INDICATED CATH CULTURE IND
[2017-02-19] MEDS: MIRTAZAPINE 15 MG TAB PO SCH (21:29)
[2017-02-19] MEDS: DONEPEZIL HCL 5 MG TAB PO SCH (21:30)
[2017-02-20] VITALS (7 sets, daily range): BP systolic 98–131; BP diastolic 51–74; PULSE 72–116; RESP 18–20; TEMP 97.2–99.6; O2SAT 94–98
[2017-02-20] MEDS: SODIUM CHLOR 0.9% 1000 ML INJ 1,000 ML IV SCH ×3 (01:25→21:25)
[2017-02-20] MEDS: CEFEPIME INJ 1,000 MG in SODIUM CHLORIDE 0.9% INJ 100 ML IV SCH (05:49)
[2017-02-20] MEDS: CHOLESTYRAMINE 4 GM PACKET PO SCH ×2 (05:49→16:51)
[2017-02-20] MEDS: INSULIN ASPART SUPPLEMENTAL SCALE SQ SCH ×4 (06:06→21:00)
[2017-02-20] MEDS: SODIUM CHLORIDE 0.9% FLUSH 10 ML FLUSH IV FLUSH SCH ×2 (08:19→21:00)
[2017-02-20] MEDS: VANCOMYCIN 500 MG VIAL (FOR ORAL USE ONLY) PO SCH ×4 (08:20→21:03)
[2017-02-20] MEDS: DIPYRIDAMOLE/ASPIRIN 200 MG/25 MG CAP PO SCH ×2 (08:20→21:16)
[2017-02-20] MEDS: ASCORBIC ACID 500 MG TAB PO SCH ×2 (08:20→21:03)
[2017-02-20] MEDS: GABAPENTIN 300 MG CAP PO SCH ×3 (08:20→16:51)
[2017-02-20] MEDS: DOCUSATE SODIUM 50 MG/SENNA 8.6 MG TAB PO SCH ×2 (08:20→21:03)
[2017-02-20 08:31] LABS: AUTOMATED NEUTROPHIL # 11.7 TH/MM3 (1.8-7.7); BASOPHIL # 0.1 TH/MM3 (0-0.2); BASOPHIL % 0.7 % (0.0-2.0); EOSINOPHIL # 0.2 TH/MM3 (0-0.4); EOSINOPHIL % 1.6 % (0.0-4.0); HEMATOCRIT 30.3 % (39.0-51.0); HEMO FLAGS DIFF FINAL; LYMPH % 8.4 % (9.0-44.0); LYMPHOCYTE # 1.3 TH/MM3 (1.0-4.8); MEAN CELL VOLUME 92.9 FL (80.0-100.0); MEAN CORPUSCULAR HEMOGLOBIN 29.6 PG (27.0-34.0); MEAN CORPUSCULAR HGB CONC 31.9 % (32.0-36.0); MONO % 11.6 % (0.0-8.0); NEUT % 77.7 % (16.0-70.0); PLATELET COUNT 539 TH/MM3 (150-450); RED BLOOD COUNT 3.26 MIL/MM3 (4.50-5.90); RED CELL DISTRIBUTION WIDTH 14.8 % (11.6-17.2)
[2017-02-20] MEDS: COLLAGENASE OINT 30 GM TUBE TOPICAL SCH (09:00)
[2017-02-20 09:01] LABS: ALKALINE PHOSPHATASE 44 U/L (45-117); ALT (GPT) 16 U/L (12-78); ANION GAP 11 MEQ/L (5-15); AST (GOT) 19 U/L (15-37); BICARBONATE 16.9 MEQ/L (21.0-32.0); BLOOD UREA NITROGEN 38 MG/DL (7-18); CHLORIDE 114 MEQ/L (98-107); GLOMERULAR FILTRATION RATE 37 ML/MIN (>89); POTASSIUM 3.5 MEQ/L (3.5-5.1); SODIUM (NA) 142 MEQ/L (136-145); TOTAL BILIRUBIN ADULT 0.2 MG/DL (0.2-1.0)
[2017-02-20] MEDS: NYSTATIN 100,000 UNIT/GM CREAM 15 GM TOPICAL SCH ×2 (10:00→21:00)
--- NOTE | 2017-02-20 12:38 | HHI.PR ---
Subjective Remarks Follow-up for infection Patient's stated he is doing a lot better today. He denies any pain. Denied nausea vomiting. He said that he continues to have diarrhea but that has improved. She remains afebrile. Objective Vitals Vital Signs Date Time Temp Pulse Resp B/P Pulse Ox O2 Delivery O2 Flow Rate FiO2 02/20/17 08:00 110 02/20/17 08:00 98.4 96 18 115/51 95 02/20/17 04:00 97.2 72 20 98/51 97 02/20/17 00:00 97.2 94 18 123/74 98 02/19/17 23:00 105 02/19/17 19:30 97.0 100 20 128/60 96 02/19/17 16:00 97.6 111 16 101/53 94 I/O 02/19/17 02/19/17 02/19/17 02/20/17 02/20/17 02/20/17 07:00 15:00 23:00 07:00 15:00 23:00 Intake Total 480 ml 1905 ml Output Total 5 ml Balance 480 ml 1900 ml Intake Oral 480 ml IV Total 1905 ml Output Stool Total 5 ml # Voids 1 3 5 # Bowel Movements 1 2 Result Diagram: 02/20/17 0748 02/20/17 0748 Imaging Last Impressions Toe X-Ray 02/19/17341 Signed Impressions: Service Date/Time: Sunday, February 19, 2017 03:44 - CONCLUSION: On both the AP and oblique films there is questionable bone loss involving the dorsal medial tip of the first distal phalangeal bone raises the possibility of osteomyelitis. Ho Chavarria MD Chest X-Ray 02/19/17 0341 Signed Impressions: Service Date/Time: Sunday, February 19, 2017 03:41 - CONCLUSION: Normal examination. Ho Chavarria MD Foot MRI 02/19/17 0000 Signed Impressions: Service Date/Time: Sunday, February 19, 2017 10:09 - CONCLUSION: Bone marrow edema of the distal phalanx of the first digit. Based on imaging findings and limitations without contrast I cannot confidently diagnose or exclude osteomyelitis at the tuft of the distal phalanx. Suggest followup to evaluate for change. Guy Gordon MD Objective Remarks GENERAL: Elderly white male in no acute distress. HEENT: PERRLA, EOMI. No scleral icterus or conjunctival pallor. No lid lag or facial droop. CARDIOVASCULAR: Regular rate and rhythm. No obvious murmurs to auscultation. No chest tenderness to palpation. RESPIRATORY: No obvious rhonchi or wheezing. Clear to auscultation. Breath sounds equal bilaterally. GASTROINTESTINAL: Abdomen soft, non-tender, nondistended. BS normal. MUSCULOSKELETAL: Extremities without clubbing, cyanosis, or edema. No obvious deformities. Left toe with erythema and ulcer, purulent drainage noted NEUROLOGICAL: Awake, alert and oriented x4. No focal neurologic deficits. Moving both upper and lower extremities spontaneously. Medications and IVs Current Medications Sodium Chloride 500 ml @ 500 mls/hr BOLUS ONCE IV Last administered on 05:00; Start 02/19/17 at 04:45; Stop 02/19/17 at 05:44; Status DC Piperacillin Sod/ Tazobactam Sod 100 ml @ 200 mls/hr ONCE STAT IV Last administered on 02/19/17 05:11; Start 02/19/17 at 05:00; Stop 02/19/17 at 05:29 ; Status DC Vancomycin HCl/ Sodium Chloride (Vancomycin Inj/ NS 250 ml Inj) 250 ml @ 250 mls/hr ONCE STAT IV Last administered on 02/19/17 05:12; Start 02/19/17 at 05 :00; Stop 02/19/17 at 05:59; Status DC Donepezil HCl 10 mg 10 mg HS PO Last administered on 02/19/17 21:30; Start at 21:00 Pharmacy Profile Note 0 ml @ 0 mls/hr UNSCH OTHER ; Start 02/19/17 at 05:30 Cefepime HCl/ Sodium Chloride (Maxipime Inj/NS Inj) 100 ml @ 200 mls/hr Q24H IV Last administered on 02/20/17 05:49; Start 02/20/17 at 06:00 Dextrose (D50w (Vial) Inj) 50 ml UNSCH PRN IV HYPOGLYCEMIA-SEE COMMENTS; Start 02/19/17 at 05:30 Glucagon (Glucagon Inj) 1 mg UNSCH PRN OTHER HYPOGLYCEMIA-SEE COMMENTS; Start 02/19/17 at 05:30 Insulin Aspart 1 1 ACHS SLIDING SCALE SQ Last administered on 02/20/17 12:23 ; Start 02/19/17 at 07:00 Sodium Chloride (NS 1000 ml Inj) 1,000 ml @ 100 mls/hr Q10H IV Last administered on 02/20/17 12:27; Start 02/19/17 at 05:25 Sodium Chloride (NS Flush) 2 ml UNSCH PRN IV FLUSH FLUSH AFTER USING IV ACCESS ; Start 02/19/17 at 05:30 Sodium Chloride (NS Flush) 2 ml BID IV FLUSH Last administered on 02/20/17 08: 19; Start 02/19/17 at 09:00 Ondansetron HCl (Zofran Inj) 4 mg Q6H PRN IVP NAUSEA OR VOMITING; Start at 05:30 Acetaminophen (Tylenol) 650 mg Q6H PRN PO FEVER/PAIN SCALE 1 TO 2; Start at 05:30 Acetaminophen/ Hydrocodone Bitart ([place] 5-325 Mg) 1 tab Q4H PRN PO PAIN SCALE 3 TO 5; Start 02/19/17 at 05:30 Morphine Sulfate (Morphine Inj) 2 mg Q3H PRN IV Pain 6-10; Start 02/19/17 at 05 :30 Senna/Docusate Sodium (Yashira-Colace) 1 tab BID PO Last administered on 21:30; Start 02/19/17 at 09:00 Magnesium Hydroxide (Milk Of Magnesia Liq) 30 ml Q12H PRN PO MILD - MODERATE CONSTIPATION; Start 02/19/17 at 05:30 Sennosides (Senokot) 17.2 mg Q12H PRN PO MODERATE - SEVERE CONSTIPATION; Start 02/19/17 at 05:30 Bisacodyl (Dulcolax Supp) 10 mg DAILY PRN RECTAL SEVERE CONSITIPATION; Start at 05:30 Lactulose (Lactulose Liq) 30 ml DAILY PRN PO SEVERE CONSITIPATION; Start at 05:30 Albuterol Sulfate (Ventolin Hfa Inh) 2 puff Q4HR PRN INH SHORTNESS OF BREATH; Start 02/19/17 at 05:30 Alprazolam (Xanax) 0.25 mg Q12HR PRN PO ANXIETY; Start 02/19/17 at 05:30 Cholestyramine Resin (Questran 4 Gm Pkt) 4 gm Q12H PO Last administered on 02/20 05:49; Start 02/19/17 at 06:00 Collagenase (Santyl Oint) 1 applic DAILY TOPICAL ; Start 02/19/17 at 09:00 Dipyridamole/ Aspirin (Aggrenox 200-25 Mg) 1 cap Q12HR PO Last administered on 02/20/17 08:20; Start 02/19/17 at 09:00 Gabapentin (Neurontin) 300 mg TID PO Last administered on 02/20/17 08:20; Start 02/19/17 at 09:00 Mirtazapine (Remeron) 15 mg HS PO Last administered on 02/19/17 21:29; Start 02/19/17 at 21:00 Nystatin (Mycostatin Cream) 1 applic Q12HR TOPICAL Last administered on 21:34; Start 02/19/17 at 09:00 Ascorbic Acid (Vitamin C) 500 mg BID PO Last administered on 02/20/17 08:20; Start 02/19/17 at 09:00 Vancomycin HCl 250 mg 250 mg QID PO Last administered on 02/20/17 08:20; Start 02/19/17 at 09:00 Vancomycin HCl 500 mg/Sodium Chloride 100 ml @ 200 mls/hr ONCE ONCE IV Last administered on 02/19/17 12:01; Start 02/19/17 at 11:00; Stop 02/19/17 at 11:29 ; Status DC Vancomycin HCl/ Sodium Chloride (Vancomycin Inj/ NS 500 ml Inj) 515 ml @ 257.5 mls/ hr ONCE ONCE IV ; Start 02/20/17 at 13:00; Stop 02/20/17 at 14:59 A/P Problem List: (1) Sepsis ICD Code: A41.9 Status: Acute (2) Toe osteomyelitis, left ICD Code: M86.9 Status: Acute (3) C. difficile colitis ICD Code: A04.7 Status: Acute (4) NASREEN (acute kidney injury) ICD Code: N17.9 Status: Acute (5) DM (diabetes mellitus) ICD Code: E11.9 Status: Acute Assessment and Plan Sepsis - Fever at [facility], WBC 16, HR 99, Source-Osteomyelitis/C Diff. - S/p Blood Cultures, Vanc/Zosyn in ER, will follow up cultures, continue IV Abx. UA suggestive UTI pending urine cultures. Left Toe Osteomyelitis: - X-ray w/ questionable bone loss involving dorsal medial tip of first distal phalangeal bone, possibility of osteomyelitis -MRI showed bone loss involving the dorsal medial tip of the first distal phalangeal bone raises the possibility of osteomyelitis. -Pending final recommendation from hose suspender cutter in regards to amputation. C Diff: - Currently on treatment per review of [facility] records w/ Vanc PO qid, + ongoing diarrhea however improved. Will continue w/ Vanc PO. Isolation Precautions. NASREEN: - Creatinine 2.23, previously 1.15 on 11/27/16. Likely secondary to dehydration from chronic diarrhea and acute sepsis. -Improving. Continue to monitor. Strict ins and outs. -Avoid nephrotoxins. DM: - Sliding scale with Accu-Cheks. Hold long-acting insulin for now in light of sepsis to avoid hypoglycemia. DVT Prophylaxis: Mechanical Contraindication in light of lower extremity wound Discharge Planning Patient continued to require IV antibiotics. Based on MRI he will require a possible toe amputation pending recommendations from hose suspender cutter. Svetlana Rodriges MD February 20, 2017 12:38
[2017-02-20] MEDS ORDERED: VANCOMYCIN 1,500 MG/NS 500 ML IV ONE ×2 (13:00)
[2017-02-20] MEDS: MIRTAZAPINE 15 MG TAB PO SCH (21:03)
[2017-02-20] MEDS: DONEPEZIL HCL 5 MG TAB PO SCH (21:04)
--- NOTE | 2017-02-20 23:04 | RADRPT ---
EXAM DATE/TIME: 02/19/2017 00:00 [place] COMPARISON: No previous studies available for comparison. INDICATIONS : Sepsis, osteomyelitis TECHNIQUE: Four-cuff ankle and brachial pressures were obtained. Pulse cuff waveform tracings of the ankles were recorded, and ankle-brachial indices were calculated. PRESSURES (mmHg): Brachial (arm): Right 135 Left iv site Ankle: Right 76 Left CNO >245 ARIADNE: Right 0.56 Left CNO TBI: Right 0.15 Left 0 PULSED CUFF WAVEFORMS: Severe blunting of the tracings bilaterally CONCLUSION: Noncompressibility at the left ankle and severely compromised indices on the right indicating severe bilateral lower extremity PAD Guy Hicks MD on February 20, 2017 at 23:02 Board Certified Radiologist. This report was verified electronically.
[2017-02-21] VITALS (7 sets, daily range): BP systolic 126–150; BP diastolic 61–70; PULSE 92–110; RESP 18–20; TEMP 96.5–100; O2SAT 95–100
[2017-02-21] MEDS: CHOLESTYRAMINE 4 GM PACKET PO SCH ×2 (06:22→18:03)
[2017-02-21] MEDS: CEFEPIME INJ 1,000 MG in SODIUM CHLORIDE 0.9% INJ 100 ML IV SCH (06:22)
[2017-02-21] MEDS: INSULIN ASPART SUPPLEMENTAL SCALE SQ SCH ×4 (06:22→21:00)
[2017-02-21] MEDS: DOCUSATE SODIUM 50 MG/SENNA 8.6 MG TAB PO SCH ×2 (09:00→21:00)
[2017-02-21] MEDS: VANCOMYCIN 500 MG VIAL (FOR ORAL USE ONLY) PO SCH ×4 (09:10→22:34)
[2017-02-21] MEDS: DIPYRIDAMOLE/ASPIRIN 200 MG/25 MG CAP PO SCH ×2 (09:10→22:33)
[2017-02-21] MEDS: SODIUM CHLORIDE 0.9% FLUSH 10 ML FLUSH IV FLUSH SCH ×2 (09:10→22:34)
[2017-02-21] MEDS: ASCORBIC ACID 500 MG TAB PO SCH ×2 (09:10→22:33)
[2017-02-21] MEDS: GABAPENTIN 300 MG CAP PO SCH ×3 (09:10→18:03)
[2017-02-21] MEDS: NYSTATIN 100,000 UNIT/GM CREAM 15 GM TOPICAL SCH ×2 (09:11→22:40)
[2017-02-21 10:32] LABS: HEMATOCRIT 30.4 % (39.0-51.0); MEAN CELL VOLUME 92.1 FL (80.0-100.0); MEAN CORPUSCULAR HEMOGLOBIN 29.5 PG (27.0-34.0); MEAN CORPUSCULAR HGB CONC 32.1 % (32.0-36.0); PLATELET COUNT 654 TH/MM3 (150-450); RED CELL DISTRIBUTION WIDTH 15.1 % (11.6-17.2); REVIEW FLAG FINAL; WHITE BLOOD COUNT 16.5 TH/MM3 (4.0-11.0)
[2017-02-21 11:11] LABS: BICARBONATE 17.4 MEQ/L (21.0-32.0); POTASSIUM 3.6 MEQ/L (3.5-5.1)
--- NOTE | 2017-02-21 13:07 | HHI.PR ---
Subjective Remarks Follow-up for infection Patient has no complaints. He denies any nausea vomiting abdominal pain. He remains afebrile but did have a low-grade fever last night. His is at the bedside and she was updated on the management and treatment of patient. Objective Vitals Vital Signs Date Time Temp Pulse Resp B/P Pulse Ox O2 Delivery O2 Flow Rate FiO2 02/21/17 12:00 97.8 95 18 132/70 95 02/21/17 09:41 101 02/21/17 08:39 96.5 95 18 150/70 96 02/21/17 04:00 100.0 102 20 132/61 97 02/21/17 00:00 99.3 110 20 133/62 97 02/20/17 23:00 105 02/20/17 20:00 99.6 105 20 131/61 97 02/20/17 16:00 97.8 116 19 108/71 94 I/O 02/20/17 02/20/17 02/20/17 02/21/17 02/21/17 02/21/17 07:00 15:00 23:00 07:00 15:00 23:00 Intake Total 1905 ml 240 ml 240 ml Output Total 5 ml Balance 1900 ml 240 ml 240 ml Intake Oral 240 ml 240 ml IV Total 1905 ml Output Stool Total 5 ml # Voids 5 3 1 2 # Bowel Movements 5 1 4 Result Diagram: 02/21/1793402/21/17934 Objective Remarks GENERAL: Elderly white male in no acute distress. HEENT: PERRLA, EOMI. No scleral icterus or conjunctival pallor. No lid lag or facial droop. CARDIOVASCULAR: Regular rate and rhythm. No obvious murmurs to auscultation. No chest tenderness to palpation. RESPIRATORY: No obvious rhonchi or wheezing. Clear to auscultation. Breath sounds equal bilaterally. GASTROINTESTINAL: Abdomen soft, non-tender, nondistended. BS normal. MUSCULOSKELETAL: Extremities without clubbing, cyanosis, or edema. No obvious deformities. Left toe with erythema and ulcer, purulent drainage noted NEUROLOGICAL: Awake, alert and oriented x4. No focal neurologic deficits. Moving both upper and lower extremities spontaneously. Medications and IVs Current Medications Sodium Chloride 500 ml @ 500 mls/hr BOLUS ONCE IV Last administered on t 05:00; Start 02/19/17 at 04:45; Stop 02/19/17 at 05:44; Status DC Piperacillin Sod/ Tazobactam Sod 100 ml @ 200 mls/hr ONCE STAT IV Last administered on 02/19/17 05:11; Start 02/19/17 at 05:00; Stop 02/19/17 at 05:29 ; Status DC Vancomycin HCl/ Sodium Chloride (Vancomycin Inj/ NS 250 ml Inj) 250 ml @ 250 mls/hr ONCE STAT IV Last administered on 02/19/17 05:12; Start 02/19/17 at 05 :00; Stop 02/19/17 at 05:59; Status DC Donepezil HCl 10 mg 10 mg HS PO Last administered on 02/20/17 21:04; Start at 21:00 Pharmacy Profile Note 0 ml @ 0 mls/hr UNSCH OTHER ; Start 02/19/17 at 05:30 Cefepime HCl/ Sodium Chloride (Maxipime Inj/NS Inj) 100 ml @ 200 mls/hr Q24H IV Last administered on 02/21/17 06:22; Start 02/20/17 at 06:00 Dextrose (D50w (Vial) Inj) 50 ml UNSCH PRN IV HYPOGLYCEMIA-SEE COMMENTS; Start 02/19/17 at 05:30 Glucagon (Glucagon Inj) 1 mg UNSCH PRN OTHER HYPOGLYCEMIA-SEE COMMENTS; Start 02/19/17 at 05:30 Insulin Aspart 1 1 ACHS SLIDING SCALE SQ Last administered on 02/20/17 12:23 ; Start 02/19/17 at 07:00 Sodium Chloride (NS 1000 ml Inj) 1,000 ml @ 100 mls/hr Q10H IV Last administered on 02/20/17 12:27; Start 02/19/17 at 05:25 Sodium Chloride (NS Flush) 2 ml UNSCH PRN IV FLUSH FLUSH AFTER USING IV ACCESS ; Start 02/19/17 at 05:30 Sodium Chloride (NS Flush) 2 ml BID IV FLUSH Last administered on 02/21/17 09: 10; Start 02/19/17 at 09:00 Ondansetron HCl (Zofran Inj) 4 mg Q6H PRN IVP NAUSEA OR VOMITING; Start at 05:30 Acetaminophen (Tylenol) 650 mg Q6H PRN PO FEVER/PAIN SCALE 1 TO 2; Start at 05:30 Acetaminophen/ Hydrocodone Bitart ([place] 5-325 Mg) 1 tab Q4H PRN PO PAIN SCALE 3 TO 5; Start 02/19/17 at 05:30 Morphine Sulfate (Morphine Inj) 2 mg Q3H PRN IV Pain 6-10; Start 02/19/17 at 05 :30 Senna/Docusate Sodium (Yashira-Colace) 1 tab BID PO Last administered on 21:03; Start 02/19/17 at 09:00 Magnesium Hydroxide (Milk Of Magnesia Liq) 30 ml Q12H PRN PO MILD - MODERATE CONSTIPATION; Start 02/19/17 at 05:30 Sennosides (Senokot) 17.2 mg Q12H PRN PO MODERATE - SEVERE CONSTIPATION; Start 02/19/17 at 05:30 Bisacodyl (Dulcolax Supp) 10 mg DAILY PRN RECTAL SEVERE CONSITIPATION; Start at 05:30 Lactulose (Lactulose Liq) 30 ml DAILY PRN PO SEVERE CONSITIPATION; Start at 05:30 Albuterol Sulfate (Ventolin Hfa Inh) 2 puff Q4HR PRN INH SHORTNESS OF BREATH; Start 02/19/17 at 05:30 Alprazolam (Xanax) 0.25 mg Q12HR PRN PO ANXIETY; Start 02/19/17 at 05:30 Cholestyramine Resin (Questran 4 Gm Pkt) 4 gm Q12H PO Last administered on 02/21 06:22; Start 02/19/17 at 06:00 Collagenase (Santyl Oint) 1 applic DAILY TOPICAL ; Start 02/19/17 at 09:00 Dipyridamole/ Aspirin (Aggrenox 200-25 Mg) 1 cap Q12HR PO Last administered on 02/21/17 09:10; Start 02/19/17 at 09:00 Gabapentin (Neurontin) 300 mg TID PO Last administered on 02/21/17 09:10; Start 02/19/17 at 09:00 Mirtazapine (Remeron) 15 mg HS PO Last administered on 02/20/17 21:03; Start 02/19/17 at 21:00 Nystatin (Mycostatin Cream) 1 applic Q12HR TOPICAL Last administered on 09:11; Start 02/19/17 at 09:00 Ascorbic Acid (Vitamin C) 500 mg BID PO Last administered on 02/21/17 09:10; Start 02/19/17 at 09:00 Vancomycin HCl 250 mg 250 mg QID PO Last administered on 02/21/17 09:10; Start 02/19/17 at 09:00 Vancomycin HCl 500 mg/Sodium Chloride 100 ml @ 200 mls/hr ONCE ONCE IV Last administered on 02/19/17 12:01; Start 02/19/17 at 11:00; Stop 02/19/17 at 11:29 ; Status DC Vancomycin HCl/ Sodium Chloride (Vancomycin Inj/ NS 500 ml Inj) 515 ml @ 257.5 mls/ hr ONCE ONCE IV Last administered on 02/20/17 12:52; Start 02/20/17 at 13:00; Stop 02/20/17 at 14:59; Status DC Miscellaneous Information SPECIFIC LAB TO BE DRAWN:VANCOMYCIN TROUGH DATE TO... ONCE ONCE .XX ; Start 02/24/17 at 11:45; Stop 02/24/17 at 11:46 A/P Problem List: (1) Sepsis ICD Code: A41.9 Status: Acute (2) Toe osteomyelitis, left ICD Code: M86.9 Status: Acute (3) C. difficile colitis ICD Code: A04.7 Status: Acute (4) NASREEN (acute kidney injury) ICD Code: N17.9 Status: Acute (5) DM (diabetes mellitus) ICD Code: E11.9 Status: Acute Assessment and Plan Sepsis - Fever at SNF, WBC 16, HR 99, Source-Osteomyelitis/C Diff. - S/p Blood Cultures, Vanc/Zosyn in ER, will follow up cultures, continue IV Abx. Urine cultures so far growing gram-negative rods. Blood culture so far negative. Left Toe Osteomyelitis: - X-ray w/ questionable bone loss involving dorsal medial tip of first distal phalangeal bone, possibility of osteomyelitis -MRI showed bone loss involving the dorsal medial tip of the first distal phalangeal bone raises the possibility of osteomyelitis. -Pending final recommendation from internal affairs commander in regards to amputation. C Diff: - Currently on treatment per [facility] of [facility] records w/ Vanc PO qid, + ongoing diarrhea however improved. Will continue w/ Vanc PO. Isolation Precautions. NASREEN: - Creatinine 2.23, previously 1.15 on 11/27/16. Likely secondary to dehydration from chronic diarrhea and acute sepsis. -Improving. Continue to monitor. Strict ins and outs. -Avoid nephrotoxins. DM: - Sliding scale with Accu-Cheks. Hold long-acting insulin for now in light of sepsis to avoid hypoglycemia. DVT Prophylaxis: Mechanical Contraindication in light of lower extremity wound Discharge Planning Patient continued to require IV antibiotics. Based on MRI he will require a possible toe amputation pending recommendations from internal affairs commander. Svetlana Rodriges MD February 21, 2017 13:07
[2017-02-21] MEDS: VANCOMYCIN 1,000 MG/NS 250 ML IV SCH ×2 (16:59)
--- NOTE | 2017-02-21 17:18 | PD.POD ---
Subjective Podiatric Problems L distal hallux ulcer Past Med/Surg/Social History Social History Smoking Status: Unknown If Ever Smoked Objective Vital Signs Vital Signs Date Time Temp Pulse Resp B/P Pulse Ox O2 Delivery O2 Flow Rate FiO2 02/21/17 16:00 98.0 92 18 142/67 95 02/21/17 12:00 97.8 95 18 132/70 95 02/21/17 09:41 101 02/21/17 08:39 96.5 95 18 150/70 96 02/21/17 04:00 100.0 102 20 132/61 97 02/21/17 00:00 99.3 110 20 133/62 97 02/20/17 23:00 105 02/20/17 20:00 99.6 105 20 131/61 97 Coded Allergies: No Known Allergies (Verified , 02/19/17) Medications and IVs Current Medications Medications (Trade) Dose Ordered Sig/Alexandru Route Start Time Stop Time Status Last Admin Donepezil HCl 10 mg 10 mg HS PO 02/19/17 21:00 02/20/17 21:04 Pharmacy Profile Note 0 ml @ 0 mls/hr UNSCH OTHER 02/19/17 05:30 (Maxipime Inj/NS Inj) 100 ml @ 200 mls/hr Q24H IV 02/20/17 06:00 02/21/17 06:22 (D50w (Vial) Inj) 50 ml UNSCH PRN IV 02/19/17 05:30 Glucagon 1 mg 1 mg UNSCH PRN OTHER 02/19/17 05:30 (NS 1000 ml Inj) 1,000 ml @ 100 mls/hr Q10H IV 02/19/17 05:25 02/20/17 12:27 (NS Flush) 2 ml UNSCH PRN IV FLUSH 02/19/17 05:30 (NS Flush) 2 ml BID IV FLUSH 02/19/17 09:00 02/21/17 09:10 (Zofran Inj) 4 mg Q6H PRN IVP 02/19/17 05:30 (Tylenol) 650 mg Q6H PRN PO 02/19/17 05:30 ([place] 5-325 Mg) 1 tab Q4H PRN PO 02/19/17 05:30 (Morphine Inj) 2 mg Q3H PRN IV 02/19/17 05:30 (Yashira-Colace) 1 tab BID PO 02/19/17 09:00 02/20/17 21:03 (Milk Of Magnesia Liq) 30 ml Q12H PRN PO 02/19/17 05:30 (Senokot) 17.2 mg Q12H PRN PO 02/19/17 05:30 (Dulcolax Supp) 10 mg DAILY PRN RECTAL 02/19/17 05:30 (Lactulose Liq) 30 ml DAILY PRN PO 02/19/17 05:30 (Ventolin Hfa Inh) 2 puff Q4HR PRN INH 02/19/17 05:30 (Xanax) 0.25 mg Q12HR PRN PO 02/19/17 05:30 (Questran 4 Gm Pkt) 4 gm Q12H PO 02/19/17 06:00 02/21/17 06:22 (Santyl Oint) 1 applic DAILY TOPICAL 02/19/17 09:00 (Aggrenox 200-25 Mg) 1 cap Q12HR PO 02/19/17 09:00 02/21/17 09:10 (Neurontin) 300 mg TID PO 02/19/17 09:00 02/21/17 13:36 (Remeron) 15 mg HS PO 02/19/17 21:00 02/20/17 21:03 (Mycostatin Cream) 1 applic Q12HR TOPICAL 02/19/17 09:00 02/21/17 09:11 (Vitamin C) 500 mg BID PO 02/19/17 09:00 02/21/17 09:10 Vancomycin HCl 250 mg 250 mg QID PO 02/19/17 09:00 02/21/17 13:36 (Vancomycin Inj/ NS 250 ml Inj) 250 ml @ 250 mls/hr Q12H IV 02/21/17 16:00 02/21/17 16:59 Miscellaneous Information SPECIFIC LAB TO BE DRAWN:VANCOMYCIN TROUGH DATE TO... ONCE ONCE .XX 02/23/17 03:45 02/23/17 03:46 Other Results Last Impressions Toe X-Ray 02/19/17 0342 Signed Impressions: Service Date/Time: Sunday, February 19, 2017 03:44 - CONCLUSION: On both the AP and oblique films there is questionable bone loss involving the dorsal medial tip of the first distal phalangeal bone raises the possibility of osteomyelitis. Ho Chavarria MD Chest X-Ray 02/19/17 0341 Signed Impressions: Service Date/Time: Sunday, February 19, 2017 03:41 - CONCLUSION: Normal examination. Ho Chavarria MD Foot MRI 02/19/17 0000 Signed Impressions: Service Date/Time: Sunday, February 19, 2017 10:09 - CONCLUSION: Bone marrow edema of the distal phalanx of the first digit. Based on imaging findings and limitations without contrast I cannot confidently diagnose or exclude osteomyelitis at the tuft of the distal phalanx. Suggest followup to evaluate for change. Guy Gordon MD Physical Exam Remarks No palpable bone. Minimal localized erythema, No edema noted to L hallux. Digits cool, diminished pulses. Assessment & Plan A/P Ulcer L distal hallux Ordered santyl dressing daily to wound ORdered vascular consultation Will assess progress of wound in the coming days, as there is no palpable bone or clinical signs of osteo at this time. Jean Novoa DPM February 21, 2017 17:18
[2017-02-21] MEDS ORDERED: COLLAGENASE OINT 30 GM TUBE TOPICAL ONE (18:00)
[2017-02-21] MEDS: SODIUM CHLOR 0.9% 1000 ML INJ 1,000 ML IV SCH (18:01)
[2017-02-21] MEDS: COLLAGENASE OINT 30 GM TUBE TOPICAL SCH (18:33)
[2017-02-21] MEDS: DONEPEZIL HCL 5 MG TAB PO SCH (22:33)
[2017-02-21] MEDS: MIRTAZAPINE 15 MG TAB PO SCH (22:34)
[2017-02-22] VITALS (7 sets, daily range): BP systolic 105–141; BP diastolic 50–66; PULSE 71–98; RESP 16–24; TEMP 95.6–97.7; O2SAT 95–100
[2017-02-22] MEDS: SODIUM CHLOR 0.9% 1000 ML INJ 1,000 ML IV SCH ×2 (03:25→15:17)
[2017-02-22] MEDS: VANCOMYCIN 1,000 MG/NS 250 ML IV SCH ×2 (04:56)
[2017-02-22] MEDS: CEFEPIME INJ 1,000 MG in SODIUM CHLORIDE 0.9% INJ 100 ML IV SCH (04:58)
[2017-02-22] MEDS: CHOLESTYRAMINE 4 GM PACKET PO SCH ×2 (04:58→18:48)
[2017-02-22] MEDS: INSULIN ASPART SUPPLEMENTAL SCALE SQ SCH ×4 (06:43→21:00)
[2017-02-22 08:48] LABS: BICARBONATE 14.9 MEQ/L (21.0-32.0); POTASSIUM 4.1 MEQ/L (3.5-5.1)
--- NOTE | 2017-02-22 08:59 | HHI.PR ---
Subjective Remarks Follow for infection Patient has no complaints. He stated that he is doing better. He continues to have diarrhea. Flexseal was placed yesterday. He remains afebrile. Patient denies any abdominal pain or nausea or vomiting. Objective Vitals Vital Signs Date Time Temp Pulse Resp B/P Pulse Ox O2 Delivery O2 Flow Rate FiO2 02/22/17 08:03 97.2 78 18 114/60 97 02/22/17 05:37 97.7 86 16 105/50 98 02/22/17 01:10 97.5 98 18 124/56 96 02/21/17 20:00 97.7 96 20 126/70 100 02/21/17 16:00 98.0 92 18 142/67 95 02/21/17 12:00 97.8 95 18 132/70 95 02/21/17 09:41 101 I/O 02/21/17 02/21/17 02/21/17 02/22/17 02/22/17 02/22/17 07:00 15:00 23:00 07:00 15:00 23:00 Intake Total 240 ml 0 ml Output Total 50 ml Balance 240 ml -50 ml Intake Oral 240 ml 0 ml Output Urine Total 50 ml # Voids 2 3 # Bowel Movements 4 2 1 Result Diagram: 02/21/1735 02/21/17934 Objective Remarks GENERAL: Elderly white male in no acute distress. HEENT: PERRLA, EOMI. No scleral icterus or conjunctival pallor. No lid lag or facial droop. CARDIOVASCULAR: Regular rate and rhythm. No obvious murmurs to auscultation. No chest tenderness to palpation. RESPIRATORY: No obvious rhonchi or wheezing. Clear to auscultation. Breath sounds equal bilaterally. GASTROINTESTINAL: Abdomen soft, non-tender, nondistended. BS normal. MUSCULOSKELETAL: Extremities without clubbing, cyanosis, or edema. No obvious deformities. Left toe with erythema and ulcer, purulent drainage noted NEUROLOGICAL: Awake, alert and oriented x4. No focal neurologic deficits. Moving both upper and lower extremities spontaneously. Medications and IVs Current Medications Sodium Chloride 500 ml @ 500 mls/hr BOLUS ONCE IV Last administered on t 05:00; Start 02/19/17 at 04:45; Stop 02/19/17 at 05:44; Status DC Piperacillin Sod/ Tazobactam Sod 100 ml @ 200 mls/hr ONCE STAT IV Last administered on 02/19/17 05:11; Start 02/19/17 at 05:00; Stop 02/19/17 at 05:29 ; Status DC Vancomycin HCl/ Sodium Chloride (Vancomycin Inj/ NS 250 ml Inj) 250 ml @ 250 mls/hr ONCE STAT IV Last administered on 02/19/17 05:12; Start 02/19/17 at 05 :00; Stop 02/19/17 at 05:59; Status DC Donepezil HCl 10 mg 10 mg HS PO Last administered on 02/21/17 22:33; Start at 21:00 Pharmacy Profile Note 0 ml @ 0 mls/hr UNSCH OTHER ; Start 02/19/17 at 05:30 Cefepime HCl/ Sodium Chloride (Maxipime Inj/NS Inj) 100 ml @ 200 mls/hr Q24H IV Last administered on 02/22/17 04:58; Start 02/20/17 at 06:00 Dextrose (D50w (Vial) Inj) 50 ml UNSCH PRN IV HYPOGLYCEMIA-SEE COMMENTS; Start 02/19/17 at 05:30 Glucagon (Glucagon Inj) 1 mg UNSCH PRN OTHER HYPOGLYCEMIA-SEE COMMENTS; Start 02/19/17 at 05:30 Insulin Aspart 1 1 ACHS SLIDING SCALE SQ Last administered on 02/20/17 12:23 ; Start 02/19/17 at 07:00 Sodium Chloride (NS 1000 ml Inj) 1,000 ml @ 100 mls/hr Q10H IV Last administered on 02/22/17 03:25; Start 02/19/17 at 05:25 Sodium Chloride (NS Flush) 2 ml UNSCH PRN IV FLUSH FLUSH AFTER USING IV ACCESS ; Start 02/19/17 at 05:30 Sodium Chloride (NS Flush) 2 ml BID IV FLUSH Last administered on 02/21/17 22: 34; Start 02/19/17 at 09:00 Ondansetron HCl (Zofran Inj) 4 mg Q6H PRN IVP NAUSEA OR VOMITING; Start at 05:30 Acetaminophen (Tylenol) 650 mg Q6H PRN PO FEVER/PAIN SCALE 1 TO 2; Start at 05:30 Acetaminophen/ Hydrocodone Bitart ([place] 5-325 Mg) 1 tab Q4H PRN PO PAIN SCALE 3 TO 5; Start 02/19/17 at 05:30 Morphine Sulfate (Morphine Inj) 2 mg Q3H PRN IV Pain 6-10; Start 02/19/17 at 05 :30 Senna/Docusate Sodium (Yashira-Colace) 1 tab BID PO Last administered on 21:03; Start 02/19/17 at 09:00 Magnesium Hydroxide (Milk Of Magnesia Liq) 30 ml Q12H PRN PO MILD - MODERATE CONSTIPATION; Start 02/19/17 at 05:30 Sennosides (Senokot) 17.2 mg Q12H PRN PO MODERATE - SEVERE CONSTIPATION; Start 02/19/17 at 05:30 Bisacodyl (Dulcolax Supp) 10 mg DAILY PRN RECTAL SEVERE CONSITIPATION; Start at 05:30 Lactulose (Lactulose Liq) 30 ml DAILY PRN PO SEVERE CONSITIPATION; Start at 05:30 Albuterol Sulfate (Ventolin Hfa Inh) 2 puff Q4HR PRN INH SHORTNESS OF BREATH; Start 02/19/17 at 05:30 Alprazolam (Xanax) 0.25 mg Q12HR PRN PO ANXIETY; Start 02/19/17 at 05:30 Cholestyramine Resin (Questran 4 Gm Pkt) 4 gm Q12H PO Last administered on 02/22 04:58; Start 02/19/17 at 06:00 Collagenase (Santyl Oint) 1 applic DAILY TOPICAL Last administered on 18:33; Start 02/19/17 at 09:00 Dipyridamole/ Aspirin (Aggrenox 200-25 Mg) 1 cap Q12HR PO Last administered on 02/21/17 22:33; Start 02/19/17 at 09:00 Gabapentin (Neurontin) 300 mg TID PO Last administered on 02/21/17 18:03; Start 02/19/17 at 09:00 Mirtazapine (Remeron) 15 mg HS PO Last administered on 02/21/17 22:34; Start 02/19/17 at 21:00 Nystatin (Mycostatin Cream) 1 applic Q12HR TOPICAL Last administered on 22:40; Start 02/19/17 at 09:00 Ascorbic Acid (Vitamin C) 500 mg BID PO Last administered on 02/21/17 22:33; Start 02/19/17 at 09:00 Vancomycin HCl 250 mg 250 mg QID PO Last administered on 02/21/17 22:34; Start 02/19/17 at 09:00 Vancomycin HCl 500 mg/Sodium Chloride 100 ml @ 200 mls/hr ONCE ONCE IV Last administered on 02/19/17 12:01; Start 02/19/17 at 11:00; Stop 02/19/17 at 11:29 ; Status DC Vancomycin HCl/ Sodium Chloride (Vancomycin Inj/ NS 500 ml Inj) 515 ml @ 257.5 mls/ hr ONCE ONCE IV Last administered on 02/20/17 12:52; Start 02/20/17 at 13:00; Stop 02/20/17 at 14:59; Status DC Miscellaneous Information SPECIFIC LAB TO BE DRAWN:VANCOMYCIN TROUGH DATE TO... ONCE ONCE .XX ; Start 02/24/17 at 11:45; Stop 02/24/17 at 11:46; Status Cancel Vancomycin HCl/ Sodium Chloride (Vancomycin Inj/ NS 250 ml Inj) 250 ml @ 250 mls/hr Q12H IV Last administered on 02/22/17 04:56; Start 02/21/17 at 16:00 Miscellaneous Information SPECIFIC LAB TO BE DRAWN:VANCOMYCIN TROUGH DATE TO... ONCE ONCE .XX ; Start 02/23/17 at 03:45; Stop 02/23/17 at 03:46 Collagenase (Santyl Oint) 1 applic ONCE ONCE TOPICAL ; Start 02/21/17 at 18:00 ; Stop 02/21/17 at 18:01; Status DC A/P Problem List: (1) Sepsis ICD Code: A41.9 Status: Acute (2) Toe osteomyelitis, left ICD Code: M86.9 Status: Acute (3) C. difficile colitis ICD Code: A04.7 Status: Acute (4) NASREEN (acute kidney injury) ICD Code: N17.9 Status: Acute (5) DM (diabetes mellitus) ICD Code: E11.9 Status: Acute Assessment and Plan Sepsis - Fever at [facility], WBC 16, HR 99, Source-questionable Osteomyelitis versus C Diff. - S/p Blood Cultures, Vanc/Zosyn in ER, will follow up cultures, continue IV Abx. Urine cultures growing proteus mirabilis. See treatment as below. Left Toe ulcer/infection - X-ray w/ questionable bone loss involving dorsal medial tip of first distal phalangeal bone, possibility of osteomyelitis -MRI showed bone loss involving the dorsal medial tip of the first distal phalangeal bone raises the possibility of osteomyelitis. 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 We'll need to continue to monitor. UTI -Grew proteus mirabilis. Sensitivities are back. -Patient is currently on antibiotics due to wound infection. -Due to C. difficile and wound infection will consult infectious disease for further recommendation. Patient is clinically doing well. C Diff: - Currently on treatment per review of [facility] records w/ Vanc PO qid, patient continues to have diarrhea. Will consult infectious disease. NASREEN: - Creatinine 2.23, previously 1.15 on 11/27/16. Acute kidney injury resolved. Secondary to dehydration. - Continue to monitor. Strict ins and outs. -Avoid nephrotoxins. DM: - Sliding scale with Accu-Cheks. Hold long-acting insulin for now in light of sepsis to avoid hypoglycemia. DVT Prophylaxis: Mechanical Contraindication in light of lower extremity wound Discharge Planning Will consult infectious disease since patient is on IV antibiotics and he continues to have significant diarrhea from his C. difficile. Svetlana Rodriges MD February 22, 2017 08:59
[2017-02-22] MEDS: SODIUM CHLORIDE 0.9% FLUSH 10 ML FLUSH IV FLUSH SCH ×2 (09:00→21:00)
[2017-02-22] MEDS: VANCOMYCIN 500 MG VIAL (FOR ORAL USE ONLY) PO SCH ×4 (09:30→21:46)
[2017-02-22] MEDS: DIPYRIDAMOLE/ASPIRIN 200 MG/25 MG CAP PO SCH ×2 (09:30→21:45)
[2017-02-22] MEDS: GABAPENTIN 300 MG CAP PO SCH ×3 (09:31→18:48)
[2017-02-22] MEDS: ASCORBIC ACID 500 MG TAB PO SCH ×2 (09:31→21:45)
[2017-02-22] MEDS: DOCUSATE SODIUM 50 MG/SENNA 8.6 MG TAB PO SCH ×2 (09:31→21:00)
[2017-02-22 09:57] LABS: HEMATOCRIT 37.7 % (39.0-51.0); MEAN CORPUSCULAR HEMOGLOBIN 29.1 PG (27.0-34.0); MEAN CORPUSCULAR HGB CONC 31.3 % (32.0-36.0); PLATELET COUNT 465 TH/MM3 (150-450); RED BLOOD COUNT 4.05 MIL/MM3 (4.50-5.90); RED CELL DISTRIBUTION WIDTH 15.2 % (11.6-17.2); WHITE BLOOD COUNT 17.1 TH/MM3 (4.0-11.0)
[2017-02-22 10:00] LABS: REVIEW FLAG FINAL
--- NOTE | 2017-02-22 14:02 | PD.CONS ---
History of Present Illness Service Infectious disease Consult Requested By Dr Gilda Rodriges Reason for Consult Evaluate patient with questionable wound infection, has C. difficile colitis Primary Care Physician Unknown Diagnoses: History of Present Illness Patient seen and examined. Records reviewed. Patient is a poor historian. Patient is a 81-year-old male, came from the residential, brought into the hospital for evaluation of fever. Patient really does not have any specific complaints, but responded to questioning. He denies any respiratory complaint. Patient has been having diarrhea, and has been diagnosed to have C. difficile colitis, and on treatment. States that his diarrhea seems to be a little bit better. He did complain of some cramping to the other physicians, but he denies any abdominal pain when I asked him. His been incontinent of urine, but denies any burning when he urinates. He was found to have an ulcer on his big toe, and according to him it has been present for about a month. Has some mild pain when touched. Imaging studies included an x-ray which is questionable for osteopenia. MRI of the foot was also non-diagnostic. Patient continues to have diarrhea. His white count is elevated. Infectious disease consultation has been requested to evaluate the patient. Review of Systems Constitutional: COMPLAINS OF: Fever, DENIES: Chills, Night Sweats Eyes: DENIES: Eye pain Ears, nose, mouth, throat: DENIES: Nasal discharge, Oral lesions, Throat pain, Running Nose, Toothache Respiratory: DENIES: Cough, Shortness of breath Cardiovascular: DENIES: Chest pain, Palpitations Gastrointestinal: COMPLAINS OF: Diarrhea, DENIES: Abdominal pain, Nausea, Vomiting, Difficulty Swallowing Genitourinary: COMPLAINS OF: Urinary incontinence, DENIES: Dysuria Musculoskeletal: DENIES: Joint pain, Joint Swelling Integumentary: DENIES: Rash Neurologic: DENIES: Headache Psychiatric: DENIES: Hallucinations Past Family Social History Allergies: Coded Allergies: No Known Allergies (Verified , 02/19/17) Past Medical History CVA w/ Residual Right-Sided Hemiparesis Hypertension C Diff DM Hyperlipidemia Past Surgical History Tonsillectomy Active Ordered Medications Tylenol [place] Albuterol Xanax Ascorbic acid Dulcolax Cefepime Questran Aggrenox Aricept Neurontin Insulin Lactinex MOM Remeron Morphine Zofran Senokot Yashira-Colace Oral Vanco IV Vanco Social History Came from the residential There is mention of alcohol use No smoking No illicit drugs Physical Exam Vital Signs Vital Signs Date Time Temp Pulse Resp B/P Pulse Ox O2 Delivery O2 Flow Rate FiO2 02/22/17 12:16 96.7 85 20 126/66 100 02/22/17 08:03 97.2 78 18 114/60 97 02/22/17 05:37 97.7 86 16 105/50 98 02/22/17 01:10 97.5 98 18 124/56 96 02/21/17 20:00 97.7 96 20 126/70 100 02/21/17 16:00 98.0 92 18 142/67 95 Physical Exam GENERAL: Patient is a well-nourished, well-developed CM, awake and alert, not in respiratory distress. SKIN: Warm and dry. No generalized rash, no ecchymoses and no evidence of embolic lesions. HEAD: Atraumatic. Normocephalic. No temporal wasting, or tenderness. EYES: [place] conjunctiva. No petechia or hemorrhage. Pupils equal, round and reactive to light. Extraocular movements full and intact. No scleral icterus. No injection or drainage. EARS, NOSE AND THROAT: Nose without bleeding or purulent nasal discharge. No sinus tenderness. Mucous membranes pink and moist. No oral lesions noted. No exudate. No oral thrush. NECK: Trachea midline. Supple and not tender, no meningeal signs CARDIOVASCULAR: Regular rate and rhythm. No murmurs, rubs or gallops heard RESPIRATORY: Clear to auscultation. Breath sounds equal bilaterally. No rales , wheezing or rhonchi ABDOMEN: Soft, non-tender, nondistended. Bowel sounds present and normoactive. No guarding. No rebound. No organomegaly. EXTREMITIES: No clubbing, cyanosis, or edema. No joint effusion, has good ROM. No calf tenderness. Well perfused and warm. L foot, at the tip of the big toe is a flat ulcer with very minimal erythema, no significant drainage noted. NEUROLOGICAL: Awake and alert. No facial asymmetry, tongue midline, EOM full and intact. Motor grossly within normal limits. PSYCHIATRIC: Normal affect, calm and cooperative. LINE: No evidence of infection Laboratory Laboratory Tests Test 02/22/17 07:30 White Blood Count 17.1 Red Blood Count 4.05 Hemoglobin 11.8 Hematocrit 37.7 Mean Corpuscular Volume 93.0 Mean Corpuscular Hemoglobin 29.1 Mean Corpuscular Hemoglobin 31.3 Concent Red Cell Distribution Width 15.2 Platelet Count 465 Mean Platelet Volume 8.7 Hematology Comments Sodium Level 142 Potassium Level 4.1 Chloride Level 114 Carbon Dioxide Level 14.9 Anion Gap 13 Blood Urea Nitrogen 14 Creatinine 1.11 Estimat Glomerular Filtration 64 Rate Random Glucose 77 Calcium Level 7.8 Date/Time Procedure Status Source Growth 02/19/17 17:30 Urine Culture - Final Complete Urine Catheterized Urine Proteus Mirabilis 02/19/17 03:50 Aerobic Blood Culture - Preliminary Resulted Blood Peripheral NO GROWTH IN 3 DAYS 02/19/17 03:50 Anaerobic Blood Culture - Preliminary Resulted Blood Peripheral NO GROWTH IN 3 DAYS Result Diagram: 02/22/17 0730 02/22/1730 Imaging RADIOLOGY STUDIES/FILMS REVIEWED Last Impressions Toe X-Ray 02/19/172 Signed Impressions: Service Date/Time: Sunday, February 19, 2017 03:44 - CONCLUSION: On both the AP and oblique films there is questionable bone loss involving the dorsal medial tip of the first distal phalangeal bone raises the possibility of osteomyelitis. Ho Chavarria MD Chest X-Ray 02/19/17 034 Signed Impressions: Service Date/Time: Sunday, February 19, 2017 03:41 - CONCLUSION: Normal examination. Ho Chavarria MD Foot MRI 02/19/17 0000 Signed Impressions: Service Date/Time: Sunday, February 19, 2017 10:09 - CONCLUSION: Bone marrow edema of the distal phalanx of the first digit. Based on imaging findings and limitations without contrast I cannot confidently diagnose or exclude osteomyelitis at the tuft of the distal phalanx. Suggest followup to evaluate for change. Guy Gordon MD Assessment and Plan Assessment and Plan IMPRESSION Sepsis on presentation, source, ?due to C diff - has very minimal redness on his L big toe with an ulcer - temps better - still with leukocytosis - abdominal exam fairly unremarkable Dry ulcer on L big toe with mild cellulitis - MRI not diagnostic Known DM and HTN RECOMMENDATION Podiatry evaluating Continue oral vanco Add Lactinex Also on vanco and Cefepime - will deescalate if nothing else on C/S and felt no osteo, and just Rx for cellulitis Follow C/S Wound care per podiatry Monitor temps Monitor progress I will follow along with you Thank you for this consultation Clare Thomson MD February 22, 2017 14:02
[2017-02-22] MEDS: COLLAGENASE OINT 30 GM TUBE TOPICAL SCH (15:26)
--- NOTE | 2017-02-22 18:23 | PD.CAR.PN ---
CVT Progress Note Subjective/Hospital Course: 02/22/17 Patient evaluated and consults received Patient is bedridden and therefore any intervention from my point has to be in concert with the fact that patient is not ambulatory Renal function is slowly improving underwent when creatinine normalizes we'll do CTA with a runoff Full consult dictated Thanks Andrew Objective: Vital Signs Date Time Temp Pulse Resp B/P Pulse Ox O2 Delivery O2 Flow Rate FiO2 02/22/17 16:19 95.6 72 20 132/62 98 02/22/17 12:16 96.7 85 20 126/66 100 02/22/17 08:03 97.2 78 18 114/60 97 02/22/17 05:37 97.7 86 16 105/50 98 02/22/17 01:10 97.5 98 18 124/56 96 02/21/17 20:00 97.7 96 20 126/70 100 Labs: Laboratory Tests Test 02/22/17 07:30 White Blood Count 17.1 TH/MM3 (4.0-11.0) Red Blood Count 4.05 MIL/MM3 (4.50-5.90) Hemoglobin 11.8 GM/DL (13.0-17.0) Hematocrit 37.7 % (39.0-51.0) Mean Corpuscular Volume 93.0 FL (80.0-100.0) Mean Corpuscular Hemoglobin 29.1 PG (27.0-34.0) Mean Corpuscular Hemoglobin 31.3 % Concent (32.0-36.0) Red Cell Distribution Width 15.2 % (11.6-17.2) Platelet Count 465 TH/MM3 (150-450) Mean Platelet Volume 8.7 FL (7.0-11.0) Hematology Comments Sodium Level 142 MEQ/L (136-145) Potassium Level 4.1 MEQ/L (3.5-5.1) Chloride Level 114 MEQ/L (98-107) Carbon Dioxide Level 14.9 MEQ/L (21.0-32.0) Anion Gap 13 MEQ/L (5-15) Blood Urea Nitrogen 14 MG/DL (7-18) Creatinine 1.11 MG/DL (0.60-1.30) Estimat Glomerular Filtration 64 ML/MIN (>89) Rate Random Glucose 77 MG/DL (74-106) Calcium Level 7.8 MG/DL (8.5-10.1) Result Diagram: 02/22/17 0730 02/22/17 0730 Be Carter MD February 22, 2017 18:23
[2017-02-22] MEDS: LACTOBACILLUS ACIDOPHILUS TAB PO SCH (18:48)
[2017-02-22] MEDS: DONEPEZIL HCL 5 MG TAB PO SCH (21:45)
[2017-02-22] MEDS: MIRTAZAPINE 15 MG TAB PO SCH (21:46)
[2017-02-22] MEDS: NYSTATIN 100,000 UNIT/GM CREAM 15 GM TOPICAL SCH (21:48)
[2017-02-22] MEDS ORDERED: VANCOMYCIN INJ 1,500 MG in SODIUM CHLORID 0.9% 500 ML INJ 500 ML IV SCH (22:00)
[2017-02-23] VITALS: BP 125/60; PULSE 89; RESP 22; TEMP 97.3; O2SAT 95
[2017-02-23] MEDS: SODIUM CHLOR 0.9% 1000 ML INJ 1,000 ML IV SCH ×3 (02:32→17:08)
[2017-02-23] MEDS: CEFEPIME INJ 1,000 MG in SODIUM CHLORIDE 0.9% INJ 100 ML IV SCH (06:24)
[2017-02-23] MEDS: CHOLESTYRAMINE 4 GM PACKET PO SCH ×2 (06:24→17:08)
[2017-02-23] MEDS: INSULIN ASPART SUPPLEMENTAL SCALE SQ SCH ×4 (06:30→21:00)
[2017-02-23 06:45] VITALS: BP 132/54; PULSE 92; RESP 18; TEMP 96.1; O2SAT 97
[2017-02-23 08:00] VITALS: BP 129/73; PULSE 98; RESP 20; TEMP 96.8; O2SAT 99
[2017-02-23] MEDS: SODIUM CHLORIDE 0.9% FLUSH 10 ML FLUSH IV FLUSH SCH ×2 (08:53→21:00)
[2017-02-23] MEDS: GABAPENTIN 300 MG CAP PO SCH ×3 (08:53→17:08)
[2017-02-23] MEDS: DIPYRIDAMOLE/ASPIRIN 200 MG/25 MG CAP PO SCH ×2 (08:53→23:29)
[2017-02-23] MEDS: VANCOMYCIN 500 MG VIAL (FOR ORAL USE ONLY) PO SCH ×4 (08:53→23:30)
[2017-02-23] MEDS: DOCUSATE SODIUM 50 MG/SENNA 8.6 MG TAB PO SCH ×2 (08:53→21:00)
[2017-02-23] MEDS: ASCORBIC ACID 500 MG TAB PO SCH ×2 (08:53→23:37)
[2017-02-23] MEDS: LACTOBACILLUS ACIDOPHILUS TAB PO SCH ×3 (08:53→17:08)
[2017-02-23] MEDS: NYSTATIN 100,000 UNIT/GM CREAM 15 GM TOPICAL SCH ×2 (08:53→23:32)
[2017-02-23] MEDS: COLLAGENASE OINT 30 GM TUBE TOPICAL SCH (08:54)
--- NOTE | 2017-02-23 09:32 | MB ---
cc: BE GONZALEZ MD DATE OF CONSULTATION 02/22/[address] Gonzalez, Vascular Surgery REASON FOR CONSULTATION Left hallux ulceration. Peripheral vascular disease. Diabetes mellitus. Coronary artery disease. HISTORY OF PRESENT DISEASE This 81-year-old gentleman, who is a resident of a [facility], was admitted for evaluation of fever and diarrhea. The patient apparently had abdominal pain, was diagnosed with C-diff colitis, then admitted to the hospital. In the process of workup he was found to have of ulcer of the left hallux and was evaluated by Podiatry. The question arises about any surgical intervention or vascular evaluation. In addition, the patient had arterial ultrasound of both legs with reveals clearly diminished monophasic flow below the level of the knee, hence the consultation. PAST MEDICAL HISTORY: Complex. 1. The patient is a known vasculopath with a history of left-sided CVA and residual right-sided hemiparesis. 2. Hypertension. 3. Diabetes mellitus. 4. Hyperlipidemia. 5. Now C-diff colitis. SURGICAL HISTORY Tonsillectomy. MEDICATIONS Multiple medications can be found on the chart including insulin. SOCIAL HISTORY The patient does not smoke, does not drink. He is a retired aviation electrician. PHYSICAL EXAMINATION GENERAL: Physical examination reveals a 81-year-old gentleman, awake, alert, oriented, maybe slightly demented, however, with a very good memory of the past. HEENT: Normocephalic. No trauma to the head. Pupils equally reactive. Extraocular muscles intact. NECK: Supple. Bilateral carotid pulses and actually I do not perceive any bruit. CHEST: Very barrel-chested with bilateral breath sounds, decreased over both lung pradhan. HEART: Regular rhythm. Slight expiratory wheezing. ABDOMEN: Soft, somewhat obese. At this point the patient is not tender to palpation, has no rebound or guarding. States he had several diarrheal bowel movements today. EXTREMITIES: The patient has palpable femoral pulses bilaterally and he has dopplerable popliteal pulses, posterior tibial bilateral, dopplerable dorsalis pedis weak bilateral. Capillary refill is decreased but there is no gangrene ulceration or ischemic pain at rest. The patient is obviously bedridden. NEUROLOGIC: Exam reveals right-sided hemiparesis and incontinence. IMPRESSION AND RECOMMENDATIONS This elderly gentleman has multiple medical problems and indeed has ulceration of his greater toe on the left. However, this could be caused by numerous things including pressure from various things in the [facility] or maybe a stubbed toe, may not be related to vascular disease. On the other hand, he does have ultrasound which reveals monophasic waves below the level of the knee. At this point in any intervention should be measured against the patient's age and general status. This is an elderly and very ill gentleman with multiple medical problems and we should minimize any unnecessary or barely necessary aggressive interventions. To start with, the patient is bedridden due to his hemiplegia, has not walked in a long time and therefore any vascular reconstruction would only be indicated as far as to prevent gangrene, not to allow the patient to walk. When the renal function has normalized, I will do CTA with a runoff and see if we can maybe improve the flow in the right leg should that be a problem, but this should not be any open procedure and at best the patient would have a balloon angioplasty with perhaps stenting. No other aggressive measures are indicated in this elderly gentleman. Thank you for my referral. CRITICAL CARE TIME 40 minutes. Be Gonzalez SJ/SSB /8:57 AM /9:20 AM
--- NOTE | 2017-02-23 10:17 | HHI.PR ---
Subjective Remarks Follow-up for infection Patient has no complaints. He stated that he is doing well. Denies any abdominal pain continues to have diarrhea. He remains afebrile. Objective Vitals Vital Signs Date Time Temp Pulse Resp B/P Pulse Ox O2 Delivery O2 Flow Rate FiO2 02/23/17 08:00 96.8 98 20 129/73 99 02/23/17 06:45 96.1 92 18 132/54 97 02/23/17 00:00 97.3 89 22 125/60 95 02/22/17 21:00 71 02/22/17 20:00 95.6 79 24 141/63 95 02/22/17 16:19 95.6 72 20 132/62 98 02/22/17 12:16 96.7 85 20 126/66 100 I/O 02/22/17 02/22/17 02/22/17 02/23/17 02/23/17 02/23/17 07:00 15:00 23:00 07:00 15:00 23:00 Intake Total 480 ml 1200 ml Output Total 600 ml Balance -120 ml 1200 ml Intake Oral 480 ml IV Total 1200 ml Output Urine Total 600 ml # Voids 3 3 # Bowel Movements 1 1 Result Diagram: 02/22/17 0730 02/22/17 0730 Objective Remarks GENERAL: Elderly white male in no acute distress. HEENT: PERRLA, EOMI. No scleral icterus or conjunctival pallor. No lid lag or facial droop. CARDIOVASCULAR: Regular rate and rhythm. No obvious murmurs to auscultation. No chest tenderness to palpation. RESPIRATORY: No obvious rhonchi or wheezing. Clear to auscultation. Breath sounds equal bilaterally. GASTROINTESTINAL: Abdomen soft, non-tender, nondistended. BS normal. MUSCULOSKELETAL: Extremities without clubbing, cyanosis, or edema. No obvious deformities. Left toe with erythema and ulcer, purulent drainage noted NEUROLOGICAL: Awake, alert and oriented x4. No focal neurologic deficits. Moving both upper and lower extremities spontaneously. Medications and IVs Current Medications Sodium Chloride 500 ml @ 500 mls/hr BOLUS ONCE IV Last administered on t 05:00; Start 02/19/17 at 04:45; Stop 02/19/17 at 05:44; Status DC Piperacillin Sod/ Tazobactam Sod 100 ml @ 200 mls/hr ONCE STAT IV Last administered on 02/19/17 05:11; Start 02/19/17 at 05:00; Stop 02/19/17 at 05:29 ; Status DC Vancomycin HCl/ Sodium Chloride (Vancomycin Inj/ NS 250 ml Inj) 250 ml @ 250 mls/hr ONCE STAT IV Last administered on 02/19/17 05:12; Start 02/19/17 at 05 :00; Stop 02/19/17 at 05:59; Status DC Donepezil HCl 10 mg 10 mg HS PO Last administered on 02/22/17 21:45; Start at 21:00 Pharmacy Profile Note 0 ml @ 0 mls/hr UNSCH OTHER ; Start 02/19/17 at 05:30 Cefepime HCl/ Sodium Chloride (Maxipime Inj/NS Inj) 100 ml @ 200 mls/hr Q24H IV Last administered on 02/23/17 06:24; Start 02/20/17 at 06:00 Dextrose (D50w (Vial) Inj) 50 ml UNSCH PRN IV HYPOGLYCEMIA-SEE COMMENTS; Start 02/19/17 at 05:30 Glucagon (Glucagon Inj) 1 mg UNSCH PRN OTHER HYPOGLYCEMIA-SEE COMMENTS; Start 02/19/17 at 05:30 Insulin Aspart 1 1 ACHS SLIDING SCALE SQ Last administered on 02/20/17 12:23 ; Start 02/19/17 at 07:00 Sodium Chloride (NS 1000 ml Inj) 1,000 ml @ 100 mls/hr Q10H IV Last administered on 02/23/17 02:32; Start 02/19/17 at 05:25 Sodium Chloride (NS Flush) 2 ml UNSCH PRN IV FLUSH FLUSH AFTER USING IV ACCESS ; Start 02/19/17 at 05:30 Sodium Chloride (NS Flush) 2 ml BID IV FLUSH Last administered on 02/21/17 22: 34; Start 02/19/17 at 09:00 Ondansetron HCl (Zofran Inj) 4 mg Q6H PRN IVP NAUSEA OR VOMITING; Start at 05:30 Acetaminophen (Tylenol) 650 mg Q6H PRN PO FEVER/PAIN SCALE 1 TO 2; Start at 05:30 Acetaminophen/ Hydrocodone Bitart (Markesan 5-325 Mg) 1 tab Q4H PRN PO PAIN SCALE 3 TO 5; Start 02/19/17 at 05:30 Morphine Sulfate (Morphine Inj) 2 mg Q3H PRN IV Pain 6-10; Start 02/19/17 at 05 :30 Senna/Docusate Sodium (Yashira-Colace) 1 tab BID PO Last administered on 08:53; Start 02/19/17 at 09:00 Magnesium Hydroxide (Milk Of Magnesia Liq) 30 ml Q12H PRN PO MILD - MODERATE CONSTIPATION; Start 02/19/17 at 05:30 Sennosides (Senokot) 17.2 mg Q12H PRN PO MODERATE - SEVERE CONSTIPATION; Start 02/19/17 at 05:30; Stop 02/22/17 at 14:03; Status DC Bisacodyl (Dulcolax Supp) 10 mg DAILY PRN RECTAL SEVERE CONSITIPATION; Start at 05:30; Stop 02/22/17 at 14:03; Status DC Lactulose (Lactulose Liq) 30 ml DAILY PRN PO SEVERE CONSITIPATION; Start at 05:30; Stop 02/22/17 at 13:50; Status DC Albuterol Sulfate (Ventolin Hfa Inh) 2 puff Q4HR PRN INH SHORTNESS OF BREATH; Start 02/19/17 at 05:30 Alprazolam (Xanax) 0.25 mg Q12HR PRN PO ANXIETY; Start 02/19/17 at 05:30 Cholestyramine Resin (Questran 4 Gm Pkt) 4 gm Q12H PO Last administered on 02/23 06:24; Start 02/19/17 at 06:00 Collagenase (Santyl Oint) 1 applic DAILY TOPICAL Last administered on 08:54; Start 02/19/17 at 09:00 Dipyridamole/ Aspirin (Aggrenox 200-25 Mg) 1 cap Q12HR PO Last administered on 02/23/17 08:53; Start 02/19/17 at 09:00 Gabapentin (Neurontin) 300 mg TID PO Last administered on 02/23/17 08:53; Start 02/19/17 at 09:00 Mirtazapine (Remeron) 15 mg HS PO Last administered on 02/22/17 21:46; Start 02/19/17 at 21:00 Nystatin (Mycostatin Cream) 1 applic Q12HR TOPICAL Last administered on 08:53; Start 02/19/17 at 09:00 Ascorbic Acid (Vitamin C) 500 mg BID PO Last administered on 02/23/17 08:53; Start 02/19/17 at 09:00 Vancomycin HCl 250 mg 250 mg QID PO Last administered on 02/23/17 08:53; Start 02/19/17 at 09:00 Vancomycin HCl 500 mg/Sodium Chloride 100 ml @ 200 mls/hr ONCE ONCE IV Last administered on 02/19/17 12:01; Start 02/19/17 at 11:00; Stop 02/19/17 at 11:29 ; Status DC Vancomycin HCl/ Sodium Chloride (Vancomycin Inj/ NS 500 ml Inj) 515 ml @ 257.5 mls/ hr ONCE ONCE IV Last administered on 02/20/17 12:52; Start 02/20/17 at 13:00; Stop 02/20/17 at 14:59; Status DC Miscellaneous Information SPECIFIC LAB TO BE DRAWN:VANCOMYCIN TROUGH DATE TO... ONCE ONCE .XX ; Start 02/24/17 at 11:45; Stop 02/24/17 at 11:46; Status Cancel Vancomycin HCl/ Sodium Chloride (Vancomycin Inj/ NS 250 ml Inj) 250 ml @ 250 mls/hr Q12H IV Last administered on 02/22/17 04:56; Start 02/21/17 at 16:00; Stop 02/22/17 at 12:20; Status DC Miscellaneous Information SPECIFIC LAB TO BE DRAWN:VANCOMYCIN TROUGH DATE TO... ONCE ONCE .XX ; Start 02/23/17 at 21:45; Stop 02/23/17 at 21:46 Collagenase 1 applic 1 applic ONCE ONCE TOPICAL ; Start 02/21/17 at 18:00; Stop 02/21/17 at 18:01; Status DC Vancomycin HCl/ Sodium Chloride (Vancomycin Inj/ NS 500 ml Inj) 515 ml @ 250 mls/hr Q24H IV Last administered on 02/22/17 23:19; Start 02/22/17 at 22:00 Lactobacillus Acidophilus (Lactinex) 1 tab TID PO Last administered on 08:53; Start 02/22/17 at 18:00 A/P Problem List: (1) Sepsis ICD Code: A41.9 Status: Acute (2) Toe osteomyelitis, left ICD Code: M86.9 Status: Acute (3) C. difficile colitis ICD Code: A04.7 Status: Acute (4) NASREEN (acute kidney injury) ICD Code: N17.9 Status: Acute (5) DM (diabetes mellitus) ICD Code: E11.9 Status: Acute Assessment and Plan Sepsis on day of admission - Fever at SNF, WBC 16, HR 99, Source-questionable Osteomyelitis versus C Diff. - S/p Blood Cultures, Vanc/Zosyn in ER, blood cultures obtained on so far negative, on IV Abx. Urine cultures growing proteus mirabilis. See treatment as below. Left Toe ulcer/infection - X-ray w/ questionable bone loss involving dorsal medial tip of first distal phalangeal bone, possibility of osteomyelitis -MRI showed bone loss involving the dorsal medial tip of the first distal phalangeal bone raises the possibility of osteomyelitis. -Per mortgage professional unlikely osteomyelitis. Will need to continue to monitor. -Patient on vancomycin and cefepime. -And infectious diseases on board and will deescalate antibiotics. -Vascular surgeon consulted and CTA of lower extremity was done this morning. Pending report and final recommendations from vascular surgeon. UTI -Grew proteus mirabilis. Sensitivities are back. -Patient is currently on antibiotics due to wound infection. -Infectious disease is following. C Diff: - Currently on treatment per review of [facility] records w/ Vanc PO qid, patient continues to have diarrhea. Infectious disease consulted and added Imodium. NASREEN: - Creatinine 2.23, previously 1.15 on 11/27/16.Secondary to dehydration. -Resolved with IV fluids. - Continue to monitor. Strict ins and outs. -Avoid nephrotoxins. Leukocytosis -Increasing. Clinically doing well and he remains afebrile. -Infectious disease is following will continue to monitor. DM: - Sliding scale with Accu-Cheks. Hold long-acting insulin for now in light of sepsis to avoid hypoglycemia. DVT Prophylaxis: Mechanical Contraindication in light of lower extremity wound Discharge Planning Patient is on IV antibiotics and leukocytosis continues to increase so will need continual hospitalization. Svetlana Rodriges MD February 23, 2017 10:17
[2017-02-23 12:00] LABS: MEAN CELL VOLUME 90.7 FL (80.0-100.0); MEAN CORPUSCULAR HEMOGLOBIN 29.5 PG (27.0-34.0); MEAN CORPUSCULAR HGB CONC 32.5 % (32.0-36.0); PLATELET COUNT 712 TH/MM3 (150-450); RED BLOOD COUNT 3.19 MIL/MM3 (4.50-5.90); REVIEW FLAG FINAL; WHITE BLOOD COUNT 13.2 TH/MM3 (4.0-11.0)
[2017-02-23 12:24] VITALS: BP 111/56; PULSE 86; RESP 19; TEMP 96.5; O2SAT 98
--- NOTE | 2017-02-23 13:00 | HHI.IDPN ---
Subjective Subjective Remarks Patient is a 81-year-old male, came from the snf, brought into the hospital for evaluation of fever. Patient really does not have any specific complaints, but responded to questioning. He denies any respiratory complaint. Patient has been having diarrhea, and has been diagnosed to have C. difficile colitis, and on treatment. States that his diarrhea seems to be a little bit better. He did complain of some cramping to the other physicians, but he denies any abdominal pain when I asked him. His been incontinent of urine, but denies any burning when he urinates. He was found to have an ulcer on his big toe, and according to him it has been present for about a month. Has some mild pain when touched. Imaging studies included an x-ray which is questionable for osteopenia. MRI of the foot was also non-diagnostic. Patient continues to have diarrhea, but states its better. His white count is elevated. Notes reviewed Temps ok BM better UA (+), UC with Proteus Diarrhea less No abdominal pain Antibiotics Vanco IV PO Vanco Cefepime Lines PIV Past Medical History CVA w/ Residual Right-Sided Hemiparesis Hypertension C Diff DM Hyperlipidemia Past Surgical History Tonsillectomy Allergies: Coded Allergies: No Known Allergies (Verified , 02/19/17) Objective . Vital Signs Date Time Temp Pulse Resp B/P Pulse Ox O2 Delivery O2 Flow Rate FiO2 02/23/17 12:24 96.5 86 19 111/56 98 02/23/17 08:00 96.8 98 20 129/73 99 02/23/17 06:45 96.1 92 18 132/54 97 02/23/17 00:00 97.3 89 22 125/60 95 02/22/17 21:00 71 02/22/17 20:00 95.6 79 24 141/63 95 02/22/17 16:19 95.6 72 20 132/62 98 02/22/17 02/22/17 02/23/17 15:00 23:00 07:00 Intake Total 480 ml 1200 ml Output Total 600 ml Balance -120 ml 1200 ml Intake Oral 480 ml IV Total 1200 ml Output Urine Total 600 ml # Voids 3 3 # Bowel Movements 1 1 . Laboratory Tests Test 02/22/17 02/23/17 07:30 11:14 White Blood Count 17.1 TH/MM3 13.2 TH/MM3 Red Blood Count 4.05 MIL/MM3 3.19 MIL/MM3 Hemoglobin 11.8 GM/DL 9.4 GM/DL Hematocrit 37.7 % 29.0 % Mean Corpuscular Volume 93.0 FL 90.7 FL Mean Corpuscular Hemoglobin 29.1 PG 29.5 PG Mean Corpuscular Hemoglobin 31.3 % 32.5 % Concent Red Cell Distribution Width 15.2 % 15.0 % Platelet Count 465 TH/MM3 712 TH/MM3 Mean Platelet Volume 8.7 FL 7.5 FL Hematology Comments Laboratory Tests Test 02/22/17 07:30 Sodium Level 142 MEQ/L Potassium Level 4.1 MEQ/L Chloride Level 114 MEQ/L Carbon Dioxide Level 14.9 MEQ/L Anion Gap 13 MEQ/L Blood Urea Nitrogen 14 MG/DL Creatinine 1.11 MG/DL Estimat Glomerular Filtration 64 ML/MIN Rate Random Glucose 77 MG/DL Calcium Level 7.8 MG/DL Imaging Last Impressions Toe X-Ray 02/19/17341 Signed Impressions: Service Date/Time: Sunday, February 19, 2017 03:44 - CONCLUSION: On both the AP and oblique films there is questionable bone loss involving the dorsal medial tip of the first distal phalangeal bone raises the possibility of osteomyelitis. Ho Chavarria MD Chest X-Ray 02/19/17340 Signed Impressions: Service Date/Time: Sunday, February 19, 2017 03:41 - CONCLUSION: Normal examination. Ho Chavarria MD Foot MRI 02/19/17 0000 Signed Impressions: Service Date/Time: Sunday, February 19, 2017 10:09 - CONCLUSION: Bone marrow edema of the distal phalanx of the first digit. Based on imaging findings and limitations without contrast I cannot confidently diagnose or exclude osteomyelitis at the tuft of the distal phalanx. Suggest followup to evaluate for change. Guy Gordon MD Physical Exam GENERAL: awake and alert, not in respiratory distress. SKIN: Warm and dry. No generalized rash, no ecchymoses and no evidence of embolic lesions. HEAD: Atraumatic. Normocephalic. No temporal wasting, or tenderness. EYES: Pyote conjunctiva. No petechia or hemorrhage. Pupils equal, round and reactive to light. Extraocular movements full and intact. No scleral icterus. No injection or drainage. EARS, NOSE AND THROAT: Nose without bleeding or purulent nasal discharge. No sinus tenderness. Mucous membranes pink and moist. No oral lesions noted. No exudate. No oral thrush. NECK: Trachea midline. Supple and not tender, no meningeal signs CARDIOVASCULAR: Regular rate and rhythm. No murmurs, rubs or gallops heard RESPIRATORY: Clear to auscultation. Breath sounds equal bilaterally. No rales , wheezing or rhonchi ABDOMEN: Soft, non-tender, nondistended. Bowel sounds present and normoactive. No guarding. No rebound. No organomegaly. EXTREMITIES: No clubbing, cyanosis, or edema. No joint effusion, has good ROM. No calf tenderness. Well perfused and warm. L foot, at the tip of the big toe is a flat ulcer with very minimal erythema, no significant drainage noted. NEUROLOGICAL: Awake and alert. No facial asymmetry, tongue midline, EOM full and intact. Motor grossly within normal limits. PSYCHIATRIC: Normal affect, calm and cooperative. LINE: No evidence of infection Assessment & Plan Remarks IMPRESSION Sepsis on presentation, source, ?due to C diff, UTI - has very minimal redness on his L big toe with an ulcer - temps better - still with leukocytosis - abdominal exam fairly unremarkable Dry ulcer on L big toe with mild cellulitis - MRI not diagnostic Known DM and HTN RECOMMENDATION Continue oral vanco Continue Lactinex Give Ceftin for his UTI Bladder scan to evaluate if he is emptying bladder well Renal US evaluate hydronephrosis Stop IV Abx Wound care per podiatry Monitor temps Monitor progress Clare Thomson MD February 23, 2017 13:00
[2017-02-23 13:13] LABS: BICARBONATE 14.6 MEQ/L (21.0-32.0); POTASSIUM 3.3 MEQ/L (3.5-5.1)
[2017-02-23 13:25] LABS: CALCIUM-PROTEIN CORRECTED 8.1 MG/DL (8.5-10.1)
[2017-02-23 16:00] VITALS: BP 122/58; PULSE 79; RESP 19; TEMP 95.6; O2SAT 100
--- NOTE | 2017-02-23 18:51 | RADRPT ---
EXAM DATE/TIME: 02/23/2017 14:58 [facility] COMPARISON: CT ABDOMEN & PELVIS W/O CONTRAST, November 02, 2016, 0:45. INDICATIONS : Obstruction. MEDICAL HISTORY : Hypercholesterolemia. Hypertension. Chronic obstructive pulmonary disease. Cerebrovascular accident. C-Diff. Renal failure. Benign prostate hypertorphy. Diabetes. SURGICAL HISTORY : Tonsillectomy. ENCOUNTER: Initial ACUITY: 1 day PAIN SCORE: 1/10 LOCATION: Bilateral flank MEASUREMENTS: RIGHT KIDNEY: 9.6 x 5.5 x 4.7 cm LEFT KIDNEY: 9.1 x 5.4 x 6.3 cm FINDINGS: RIGHT KIDNEY: Renal cortex is normal in thickness and echotexture. No hydronephrosis, stone, or mass. LEFT KIDNEY: 1.6 cm simple cyst in the upper pole of the left kidney. No evidence of hydronephrosis or calculus. BLADDER: Within normal limits given the degree of distension. 1.1 cm Gallstone noted in gallbladder. CONCLUSION: 1. Left renal cyst. Kidneys otherwise within normal limits. 2. 1 cm calculus noted in the gallbladder. Santiago Mcdonough MD on February 23, 2017 at 18:47 Board Certified Radiologist. This report was verified electronically.
[2017-02-23] MEDS ORDERED: IOHEXOL 350 MG/ML 10 ML VIAL (for RAD DIAG) IV ONE (20:49)
[2017-02-23 21:20] VITALS: BP 121/58; PULSE 87; RESP 18; TEMP 97.8; O2SAT 96
[2017-02-23] MEDS ORDERED: PHARMACY ORDERED LAB ONE (21:45)
--- NOTE | 2017-02-23 22:08 | RADRPT ---
EXAM DATE/TIME: 02/23/2017 20:17 [facility] COMPARISON: No previous studies available for comparison. INDICATIONS : Evaluate for right hallux gangrene. IV CONTRAST: 100 cc Omnipaque 350 (iohexol) IV RADIATION DOSE: 24.38 CTDIvol (mGy) MEDICAL HISTORY : Cardiovascular disease. Hypertension. Renal insufficiency.Diabetes, C-Diff SURGICAL HISTORY : None. ENCOUNTER: Initial ACUITY: 2 weeks PAIN SCALE: 2/10 LOCATION: Right foot TECHNIQUE: Volumetric scanning was performed using a multi-row detector CT scanner. The data was post processed with a variety of visualization algorithms including full volume maximum intensity projection, multi -planar sliding thin slab reformation, curved planar reformation, and surface rendering techniques. Using automated exposure control and adjustment of the mA and/or kV according to patient size, radiat ion dose was kept as low as reasonably achievable to obtain optimal diagnostic quality images. FINDINGS: Aorta/inflow: Diffuse calcified plaque involving the aorta and inflow vessels. No hemodynamically significant steno sis or aneurysm. The celiac, SMA, AZUL, and left renal artery are patent. There is a 50% stenosis invo lving the right renal artery origin due to calcified plaque. Right lower extremity: Diffuse calcified plaque throughout the outflow vessels. Several areas of mild luminal narrowing invo lving the SFA within its mid and distal aspect. The [id number] popliteal artery is calcified but patent. The trifurcation vessels are heavily calcified. This limits the patency evaluation. The poste rior tibial artery is chronically occluded proximally but does reconstitute in distally although heav grayson diseased. The anterior tibial artery has multiple short segment occlusions in high-grade stenoses scattered throughout. Peroneal artery is diffusely small in caliber. Left lower extremity: Diffuse calcified plaque throughout the outflow vessels. The most significant area of luminal narrowi ng involves the [id number] popliteal artery measuring 30-40%. The trifurcation vessels are diffus ranjit calcified limiting there patency evaluation. 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 The posterior tibial artery shows multiple short segment occlusions. Paranasal artery is diffusely sm all in caliber and heavily calcified. I cannot attest to its patency. Other structures: A small right pleural effusion with associated atelectasis. Small calcified gallstones within an othe rwise normal-appearing gallbladder. CONCLUSION: 1. Diffuse calcified atherosclerotic disease involving the inflow and outflow vessels without a hemod ynamically significant stenosis. 2. 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 The patency e valuation of the trifurcation vessels is reduced due to the heavily calcified nature of the vessels. 3. 50% stenosis of the right renal artery origin. 4. Small right effusion. 5. Cholelithiasis. Ralu Garrido Jr., MD on February 23, 2017 at 21:57 Board Certified Radiologist. This report was verified electronically.
[2017-02-23] MEDS: DONEPEZIL HCL 5 MG TAB PO SCH (23:28)
[2017-02-23] MEDS: CEFUROXIME AXETIL 500 MG TAB PO SCH (23:28)
[2017-02-23] MEDS: MIRTAZAPINE 15 MG TAB PO SCH (23:29)
[2017-02-24 00:43] VITALS: BP 109/53; PULSE 95; RESP 18; TEMP 97.6; O2SAT 96
[2017-02-24 05:25] VITALS: BP 101/49; PULSE 81; RESP 18; TEMP 97.4; O2SAT 96
[2017-02-24] MEDS: SODIUM CHLOR 0.9% 1000 ML INJ 1,000 ML IV SCH ×2 (05:25→11:57)
[2017-02-24] MEDS: CHOLESTYRAMINE 4 GM PACKET PO SCH ×2 (06:00→16:51)
[2017-02-24] MEDS: INSULIN ASPART SUPPLEMENTAL SCALE SQ SCH ×4 (07:00→21:00)
[2017-02-24] MEDS: LACTOBACILLUS ACIDOPHILUS TAB PO SCH ×3 (07:51→16:51)
[2017-02-24] MEDS: GABAPENTIN 300 MG CAP PO SCH ×3 (07:51→16:51)
[2017-02-24] MEDS: DIPYRIDAMOLE/ASPIRIN 200 MG/25 MG CAP PO SCH ×2 (07:51→22:55)
[2017-02-24] MEDS: DOCUSATE SODIUM 50 MG/SENNA 8.6 MG TAB PO SCH ×2 (07:51→22:55)
[2017-02-24] MEDS: ASCORBIC ACID 500 MG TAB PO SCH ×2 (07:51→22:55)
[2017-02-24] MEDS: CEFUROXIME AXETIL 500 MG TAB PO SCH ×2 (07:51→22:55)
[2017-02-24] MEDS: COLLAGENASE OINT 30 GM TUBE TOPICAL SCH (07:51)
[2017-02-24] MEDS: NYSTATIN 100,000 UNIT/GM CREAM 15 GM TOPICAL SCH ×2 (07:51→22:57)
[2017-02-24] MEDS: VANCOMYCIN 500 MG VIAL (FOR ORAL USE ONLY) PO SCH ×4 (07:51→22:56)
[2017-02-24] MEDS: SODIUM CHLORIDE 0.9% FLUSH 10 ML FLUSH IV FLUSH SCH ×2 (07:51→21:00)
[2017-02-24 08:00] VITALS: BP 107/53; PULSE 93; RESP 20; TEMP 97.2; O2SAT 95
[2017-02-24 08:16] LABS: HEMATOCRIT 28.7 % (39.0-51.0); MEAN CELL VOLUME 91.3 FL (80.0-100.0); MEAN CORPUSCULAR HEMOGLOBIN 29.1 PG (27.0-34.0); MEAN CORPUSCULAR HGB CONC 31.9 % (32.0-36.0); PLATELET COUNT 725 TH/MM3 (150-450); RED BLOOD COUNT 3.15 MIL/MM3 (4.50-5.90); RED CELL DISTRIBUTION WIDTH 14.8 % (11.6-17.2); REVIEW FLAG FINAL; WHITE BLOOD COUNT 11.1 TH/MM3 (4.0-11.0)
[2017-02-24 08:52] LABS: BICARBONATE 16.9 MEQ/L (21.0-32.0)
[2017-02-24 08:57] LABS: POTASSIUM 2.8 MEQ/L (3.5-5.1)
[2017-02-24] MEDS: POTASSIUM CHLOR 20 MEQ PREMIX 100 ML IV SCH ×2 (09:30→11:57)
[2017-02-24] MEDS ORDERED: POTASSIUM CHLORIDE 20 MEQ CONTROLLED RELEASE TAB PO ONE (09:30)
[2017-02-24] MEDS ORDERED: PHARMACY ORDERED LAB ONE (11:45)
[2017-02-24 15:04] LABS: BICARBONATE 15.5 MEQ/L (21.0-32.0); POTASSIUM 4.1 MEQ/L (3.5-5.1)
[2017-02-24 16:00] VITALS: BP 119/53; PULSE 83; RESP 20; TEMP 96; O2SAT 98
--- NOTE | 2017-02-24 16:02 | HHI.PR ---
Subjective Remarks states he feels tired and wants to nap. denies any CP/SOB/N/V. no concerns at this time. States he had two BMs discussed w RN and she only notes one medium loose BM today Objective Vitals Vital Signs Date Time Temp Pulse Resp B/P Pulse Ox O2 Delivery O2 Flow Rate FiO2 02/24/17 08:00 97.2 93 20 107/53 95 02/24/17 05:25 97.4 81 18 101/49 96 02/24/17 00:43 97.6 95 18 109/53 96 02/23/17 21:20 97.8 87 18 121/58 96 I/O 02/23/17 02/23/17 02/23/17 02/24/17 02/24/17 02/24/17 07:00 15:00 23:00 07:00 15:00 23:00 Intake Total 1200 ml 480 ml Output Total 450 ml Balance 1200 ml 480 ml -450 ml Intake Oral 480 ml IV Total 1200 ml Output Urine Total 450 ml Bladder Scan Volume Amount 15 ml # Voids 3 5 3 1 # Bowel Movements 1 5 1 1 Result Diagram: 02/24/17 0701 02/24/17 1401 Imaging Last Impressions Renal Ultrasound 02/23/17 0000 Signed Impressions: Service Date/Time: Thursday, February 23, 2017 14:58 - CONCLUSION: 1. Left renal cyst. Kidneys otherwise within normal limits. 2. 1 cm calculus noted in the gallbladder. Santiago Mcdonough MD Aorta w/Runoff CTA 02/23/17 0000 Signed Impressions: Service Date/Time: Thursday, February 23, 2017 20:17 - CONCLUSION: 1. Diffuse calcified atherosclerotic disease involving the inflow and outflow vessels without a hemodynamically significant stenosis. 2. 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 The patency evaluation of the trifurcation vessels is reduced due to the heavily calcified nature of the vessels. 3. 50%% stenosis of the right renal artery origin. 4. Small right effusion. 5. Cholelithiasis. Raul Garrido Jr., MD Toe X-Ray 02/19/17 0342 Signed Impressions: Service Date/Time: Sunday, February 19, 2017 03:44 - CONCLUSION: On both the AP and oblique films there is questionable bone loss involving the dorsal medial tip of the first distal phalangeal bone raises the possibility of osteomyelitis. Ho Chavarria MD Chest X-Ray 02/19/17 0341 Signed Impressions: Service Date/Time: Sunday, February 19, 2017 03:41 - CONCLUSION: Normal examination. Ho Chavarria MD Foot MRI 02/19/17 0000 Signed Impressions: Service Date/Time: Sunday, February 19, 2017 10:09 - CONCLUSION: Bone marrow edema of the distal phalanx of the first digit. Based on imaging findings and limitations without contrast I cannot confidently diagnose or exclude osteomyelitis at the tuft of the distal phalanx. Suggest followup to evaluate for change. Guy Gordon MD Objective Remarks GENERAL: Elderly white male in no acute distress. CARDIOVASCULAR: Regular rate and rhythm. No obvious murmurs to auscultation. RESPIRATORY: No obvious rhonchi or wheezing. Clear to auscultation. Breath sounds equal bilaterally. GASTROINTESTINAL: Abdomen soft, non-tender, nondistended. BS normal. MUSCULOSKELETAL: Extremities without edema. No obvious deformities. Left toe dressing in place, d/c/i NEUROLOGICAL: Awake, alert. Moving both upper and lower extremities spontaneously. A/P Problem List: (1) Sepsis ICD Code: A41.9 Status: Acute (2) Toe osteomyelitis, left ICD Code: M86.9 Status: Acute (3) C. difficile colitis ICD Code: A04.7 Status: Acute (4) NASREEN (acute kidney injury) ICD Code: N17.9 Status: Acute (5) DM (diabetes mellitus) ICD Code: E11.9 Status: Acute Assessment and Plan Sepsis on day of admission - Fever at SNF, WBC 16, HR 99, Source-questionable Osteomyelitis versus C Diff. - S/p Blood Cultures, Vanc/Zosyn in ER, blood cultures obtained on so far negative, on IV Abx. Urine cultures growing proteus mirabilis. See treatment as below. Left Toe ulcer/infection - X-ray w/ questionable bone loss involving dorsal medial tip of first distal phalangeal bone, possibility of osteomyelitis -MRI showed bone loss involving the dorsal medial tip of the first distal phalangeal bone raises the possibility of osteomyelitis. -Per cafeteria assistant unlikely osteomyelitis. Will need to continue to monitor. continue santyl dressing daily to wound - infectious diseases on board and has deescalated antibiotics to po vanc and ceftin. -Vascular surgeon following and CTA of lower extremity w runoff shows "Diffuse calcified atherosclerotic disease involving the inflow and outflow vessels without a hemodynamically significant stenosis. 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 The patency evaluation of the trifurcation vessels is reduced due to the heavily calcified nature of the vessels done". UTI -Grew proteus mirabilis. Sensitivities are back. -Patient is currently on ceftin -Infectious disease is following. C Diff: - Currently on treatment per [facility] of [facility] records w/ Vanc PO qid, patient continues to have diarrhea. Infectious disease added Imodium which seems to help. NASREEN: - Creatinine 2.23 on admission down to 0.77, previously 1.15 on .Secondary to dehydration. - Continue to monitor. Strict ins and outs. -Avoid nephrotoxins. Leukocytosis -Much improved, down to 11.1. Clinically doing well and he remains afebrile. -Infectious disease is following will continue to monitor. DM: - Sliding scale with Accu-Cheks. Hold long-acting insulin for now in light of sepsis to avoid hypoglycemia. DVT Prophylaxis: Mechanical Contraindication in light of lower extremity wound Discharge Planning awaiting final recs from ID and vascular sx. Queta Hough MD Feb 24, 2017 16:02
--- NOTE | 2017-02-24 16:14 | PD.CAR.PN ---
CVT Progress Note Subjective/Hospital Course: 02/22/17 Patient evaluated and consults received Patient is bedridden and therefore any intervention from my point has to be in concert with the fact that patient is not ambulatory Renal function is slowly improving underwent when creatinine normalizes we'll do CTA with a runoff Full consult dictated Thanks Andrew 02/24/17 CTA with runoff has been reviewed This patient has is expected diffuse vascular disease with significant calcifications throughout his vascular system. 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 Flow to the foot is adequate albeit diseased Objective: Vital Signs Date Time Temp Pulse Resp B/P Pulse Ox O2 Delivery O2 Flow Rate FiO2 02/24/17 08:00 97.2 93 20 107/53 95 02/24/17 05:25 97.4 81 18 101/49 96 02/24/17 00:43 97.6 95 18 109/53 96 02/23/17 21:20 97.8 87 18 121/58 96 Labs: Laboratory Tests Test 02/24/17 02/24/17 07:01 14:01 White Blood Count 11.1 TH/MM3 (4.0-11.0) Red Blood Count 3.15 MIL/MM3 (4.50-5.90) Hemoglobin 9.2 GM/DL (13.0-17.0) Hematocrit 28.7 % (39.0-51.0) Mean Corpuscular Volume 91.3 FL (80.0-100.0) Mean Corpuscular Hemoglobin 29.1 PG (27.0-34.0) Mean Corpuscular Hemoglobin 31.9 % Concent (32.0-36.0) Red Cell Distribution Width 14.8 % (11.6-17.2) Platelet Count 725 TH/MM3 (150-450) Mean Platelet Volume 7.2 FL (7.0-11.0) Sodium Level 141 MEQ/L 142 MEQ/L (136-145) (136-145) Potassium Level 2.8 MEQ/L 4.1 MEQ/L (3.5-5.1) (3.5-5.1) Chloride Level 113 MEQ/L 114 MEQ/L (98-107) (98-107) Carbon Dioxide Level 16.9 MEQ/L 15.5 MEQ/L (21.0-32.0) (21.0-32.0) Anion Gap 11 MEQ/L (5-15) 13 MEQ/L (5-15) Blood Urea Nitrogen 6 MG/DL (7-18) 5 MG/DL (7-18) Creatinine 0.78 MG/DL 0.77 MG/DL (0.60-1.30) (0.60-1.30) Estimat Glomerular Filtration 96 ML/MIN (>89) 97 ML/MIN (>89) Rate Random Glucose 82 MG/DL 82 MG/DL (74-106) (74-106) Calcium Level 7.2 MG/DL 7.6 MG/DL (8.5-10.1) (8.5-10.1) Protein Corrected Calcium 8.0 MG/DL (8.5-10.1) Magnesium Level 1.5 MG/DL (1.5-2.5) Total Protein 5.6 GM/DL (6.4-8.2) Result Diagram: 02/24/17 0701 02/24/17 1401 Be Carter MD Feb 24, 2017 16:14
--- NOTE | 2017-02-24 16:43 | HHI.IDPN ---
Subjective Subjective Remarks Patient is a 81-year-old male, [facility], brought into the hospital for evaluation of fever. Patient really does not have any specific complaints, but responded to questioning. He denies any respiratory complaint. Patient has been having diarrhea, and has been diagnosed to have C. difficile colitis, and on treatment. States that his diarrhea seems to be a little bit better. He did complain of some cramping to the other physicians, but he denies any abdominal pain when I asked him. His been incontinent of urine, but denies any burning when he urinates. He was found to have an ulcer on his big toe, and according to him it has been present for about a month. Has some mild pain when touched. Imaging studies included an x-ray which is questionable for osteopenia. MRI of the foot was also non-diagnostic. Patient continues to have diarrhea, but states its better. His white count is elevated. Notes reviewed Temps ok BM better, only 2 today so far UA (+), UC with Proteus No abdominal pain Bladder scan 15 ml US no hydro Antibiotics PO Vanco Ceftin Lines PIV Past Medical History CVA w/ Residual Right-Sided Hemiparesis Hypertension C Diff DM Hyperlipidemia Past Surgical History Tonsillectomy Allergies: Coded Allergies: No Known Allergies (Verified , 02/19/17) Objective . Vital Signs Date Time Temp Pulse Resp B/P Pulse Ox O2 Delivery O2 Flow Rate FiO2 02/24/17 08:00 97.2 93 20 107/53 95 02/24/17 05:25 97.4 81 18 101/49 96 02/24/17 00:43 97.6 95 18 109/53 96 02/23/17 21:20 97.8 87 18 121/58 96 02/23/17 02/23/17 02/24/17 15:00 23:00 07:00 Intake Total 480 ml Balance 480 ml Intake Oral 480 ml Bladder Scan Volume Amount 15 ml # Voids 5 3 # Bowel Movements 5 1 . Laboratory Tests Test 02/23/17 02/24/17 11:14 07:01 White Blood Count 13.2 TH/MM3 11.1 TH/MM3 Red Blood Count 3.19 MIL/MM3 3.15 MIL/MM3 Hemoglobin 9.4 GM/DL 9.2 GM/DL Hematocrit 29.0 % 28.7 % Mean Corpuscular Volume 90.7 FL 91.3 FL Mean Corpuscular Hemoglobin 29.5 PG 29.1 PG Mean Corpuscular Hemoglobin 32.5 % 31.9 % Concent Red Cell Distribution Width 15.0 % 14.8 % Platelet Count 712 TH/MM3 725 TH/MM3 Mean Platelet Volume 7.5 FL 7.2 FL Laboratory Tests Test 02/23/17 02/24/17 02/24/17 11:14 07:01 14:01 Sodium Level 139 MEQ/L 141 MEQ/L 142 MEQ/L Potassium Level 3.3 MEQ/L 2.8 MEQ/L 4.1 MEQ/L Chloride Level 112 MEQ/L 113 MEQ/L 114 MEQ/L Carbon Dioxide Level 14.6 MEQ/L 16.9 MEQ/L 15.5 MEQ/L Anion Gap 12 MEQ/L 11 MEQ/L 13 MEQ/L Blood Urea Nitrogen 10 MG/DL 6 MG/DL 5 MG/DL Creatinine 0.86 MG/DL 0.78 MG/DL 0.77 MG/DL Estimat Glomerular Filtration 86 ML/MIN 96 ML/MIN 97 ML/MIN Rate Random Glucose 120 MG/DL 82 MG/DL 82 MG/DL Calcium Level 7.4 MG/DL 7.2 MG/DL 7.6 MG/DL Protein Corrected Calcium 8.1 MG/DL 8.0 MG/DL Total Protein 5.9 GM/DL 5.6 GM/DL Magnesium Level 1.5 MG/DL Imaging Last Impressions Toe X-Ray 02/19/17341 Signed Impressions: Service Date/Time: Sunday, February 19, 2017 03:44 - CONCLUSION: On both the AP and oblique films there is questionable bone loss involving the dorsal medial tip of the first distal phalangeal bone raises the possibility of osteomyelitis. Ho Chavarria MD Chest X-Ray 02/19/171 Signed Impressions: Service Date/Time: Sunday, February 19, 2017 03:41 - CONCLUSION: Normal examination. Ho Chavarria MD Foot MRI 02/19/17 0000 Signed Impressions: Service Date/Time: Sunday, February 19, 2017 10:09 - CONCLUSION: Bone marrow edema of the distal phalanx of the first digit. Based on imaging findings and limitations without contrast I cannot confidently diagnose or exclude osteomyelitis at the tuft of the distal phalanx. Suggest followup to evaluate for change. Guy Gordon MD Physical Exam GENERAL: awake and alert, not in respiratory distress. SKIN: Warm and dry. No generalized rash, no ecchymoses and no evidence of embolic lesions. HEAD: Atraumatic. Normocephalic. No temporal wasting, or tenderness. EYES: [place] conjunctiva. No petechia or hemorrhage. Pupils equal, round and reactive to light. Extraocular movements full and intact. No scleral icterus. No injection or drainage. EARS, NOSE AND THROAT: Nose without bleeding or purulent nasal discharge. No sinus tenderness. Mucous membranes pink and moist. No oral lesions noted. No exudate. No oral thrush. NECK: Trachea midline. Supple and not tender, no meningeal signs CARDIOVASCULAR: Regular rate and rhythm. No murmurs, rubs or gallops heard RESPIRATORY: Clear to auscultation. Breath sounds equal bilaterally. No rales , wheezing or rhonchi ABDOMEN: Soft, non-tender, nondistended. Bowel sounds present and normoactive. No guarding. No rebound. No organomegaly. EXTREMITIES: No clubbing, cyanosis, or edema. No joint effusion, has good ROM. No calf tenderness. Well perfused and warm. L foot, at the tip of the big toe is a flat ulcer with very minimal erythema, no significant drainage noted. NEUROLOGICAL: Awake and alert. No facial asymmetry, tongue midline, EOM full and intact. Motor grossly within normal limits. PSYCHIATRIC: Normal affect, calm and cooperative. LINE: No evidence of infection Assessment & Plan Remarks IMPRESSION Sepsis on presentation, source, ?due to C diff, UTI - has very minimal redness on his L big toe with an ulcer - temps better - abdominal exam fairly unremarkable Dry ulcer on L big toe with mild cellulitis - MRI not diagnostic Known DM and HTN Leukocytosis improving RECOMMENDATION Continue ceftin for UTI - to finish 03/05 Continue Lactinex Continue Po Vanco - give at least one week after he finished his Ceftin - so give until March 12 Wound care per podiatry Monitor temps Monitor progress Clare Thomson MD Feb 24, 2017 16:43
[2017-02-24 20:00] VITALS: BP 142/76; PULSE 84; RESP 18; TEMP 95.9; O2SAT 95
[2017-02-24] MEDS: DONEPEZIL HCL 5 MG TAB PO SCH (22:55)
[2017-02-24] MEDS: MIRTAZAPINE 15 MG TAB PO SCH (22:55)
[2017-02-25] VITALS: BP 151/70; PULSE 78; RESP 18; TEMP 98.3; O2SAT 96
[2017-02-25 04:00] VITALS: BP 121/60; PULSE 79; RESP 18; TEMP 96.9; O2SAT 94
[2017-02-25] MEDS: CHOLESTYRAMINE 4 GM PACKET PO SCH (05:04)
[2017-02-25 07:00] VITALS: PULSE 84
[2017-02-25] MEDS: INSULIN ASPART SUPPLEMENTAL SCALE SQ SCH ×2 (07:00→11:00)
[2017-02-25 08:00] VITALS: BP 113/54; PULSE 73; PULSE 84; RESP 18; TEMP 96.5; O2SAT 97
[2017-02-25] MEDS: SODIUM CHLORIDE 0.9% FLUSH 10 ML FLUSH IV FLUSH SCH (09:00)
[2017-02-25] MEDS: DIPYRIDAMOLE/ASPIRIN 200 MG/25 MG CAP PO SCH (09:00)
[2017-02-25] MEDS: VANCOMYCIN 500 MG VIAL (FOR ORAL USE ONLY) PO SCH ×2 (09:32→13:38)
[2017-02-25] MEDS: CEFUROXIME AXETIL 500 MG TAB PO SCH (09:35)
[2017-02-25] MEDS: DOCUSATE SODIUM 50 MG/SENNA 8.6 MG TAB PO SCH (09:36)
[2017-02-25] MEDS: ASCORBIC ACID 500 MG TAB PO SCH (09:36)
[2017-02-25] MEDS: NYSTATIN 100,000 UNIT/GM CREAM 15 GM TOPICAL SCH (09:37)
[2017-02-25] MEDS: LACTOBACILLUS ACIDOPHILUS TAB PO SCH ×2 (09:37→13:40)
[2017-02-25] MEDS: GABAPENTIN 300 MG CAP PO SCH ×2 (09:37→13:40)
[2017-02-25] MEDS: COLLAGENASE OINT 30 GM TUBE TOPICAL SCH (09:38)
--- NOTE | 2017-02-25 10:20 | HHI.IDPN ---
Subjective Subjective Remarks Patient is a 81-year-old male, [facility], brought into the hospital for evaluation of fever. Patient really does not have any specific complaints, but responded to questioning. He denies any respiratory complaint. Patient has been having diarrhea, and has been diagnosed to have C. difficile colitis, and on treatment. States that his diarrhea seems to be a little bit better. He did complain of some cramping to the other physicians, but he denies any abdominal pain when I asked him. His been incontinent of urine, but denies any burning when he urinates. He was found to have an ulcer on his big toe, and according to him it has been present for about a month. Has some mild pain when touched. Imaging studies included an x-ray which is questionable for osteopenia. MRI of the foot was also non-diagnostic. Patient continues to have diarrhea, but states its better. His white count is elevated. Notes reviewed Temps ok BM better UA (+), UC with Proteus No abdominal pain Bladder scan 15 ml US no hydro Antibiotics PO Vanco Ceftin Lines PIV Past Medical History CVA w/ Residual Right-Sided Hemiparesis Hypertension C Diff DM Hyperlipidemia Past Surgical History Tonsillectomy Allergies: Coded Allergies: No Known Allergies (Verified , 02/19/17) Objective . Vital Signs Date Time Temp Pulse Resp B/P Pulse Ox O2 Delivery O2 Flow Rate FiO2 02/25/17 08:00 96.5 73 18 113/54 97 02/25/17 04:00 96.9 79 18 121/60 94 02/25/17 00:00 98.3 78 18 151/70 96 02/24/17 20:00 95.9 84 18 142/76 95 02/24/17 16:00 96.0 83 20 119/53 98 02/24/17 02/24/17 02/25/17 15:00 23:00 07:00 Output Total 450 ml Balance -450 ml Output Urine Total 450 ml # Voids 1 # Bowel Movements 1 . Laboratory Tests Test 02/23/17 02/24/17 11:14 07:01 White Blood Count 13.2 TH/MM3 11.1 TH/MM3 Red Blood Count 3.19 MIL/MM3 3.15 MIL/MM3 Hemoglobin 9.4 GM/DL 9.2 GM/DL Hematocrit 29.0 % 28.7 % Mean Corpuscular Volume 90.7 FL 91.3 FL Mean Corpuscular Hemoglobin 29.5 PG 29.1 PG Mean Corpuscular Hemoglobin 32.5 % 31.9 % Concent Red Cell Distribution Width 15.0 % 14.8 % Platelet Count 712 TH/MM3 725 TH/MM3 Mean Platelet Volume 7.5 FL 7.2 FL Laboratory Tests Test 02/23/17 02/24/17 02/24/17 11:14 07:01 14:01 Sodium Level 139 MEQ/L 141 MEQ/L 142 MEQ/L Potassium Level 3.3 MEQ/L 2.8 MEQ/L 4.1 MEQ/L Chloride Level 112 MEQ/L 113 MEQ/L 114 MEQ/L Carbon Dioxide Level 14.6 MEQ/L 16.9 MEQ/L 15.5 MEQ/L Anion Gap 12 MEQ/L 11 MEQ/L 13 MEQ/L Blood Urea Nitrogen 10 MG/DL 6 MG/DL 5 MG/DL Creatinine 0.86 MG/DL 0.78 MG/DL 0.77 MG/DL Estimat Glomerular Filtration 86 ML/MIN 96 ML/MIN 97 ML/MIN Rate Random Glucose 120 MG/DL 82 MG/DL 82 MG/DL Calcium Level 7.4 MG/DL 7.2 MG/DL 7.6 MG/DL Protein Corrected Calcium 8.1 MG/DL 8.0 MG/DL Total Protein 5.9 GM/DL 5.6 GM/DL Magnesium Level 1.5 MG/DL Imaging Last Impressions Toe X-Ray 02/19/17341 Signed Impressions: Service Date/Time: Sunday, February 19, 2017 03:44 - CONCLUSION: On both the AP and oblique films there is questionable bone loss involving the dorsal medial tip of the first distal phalangeal bone raises the possibility of osteomyelitis. Ho Chavarria MD Chest X-Ray 02/19/17 0341 Signed Impressions: Service Date/Time: Sunday, February 19, 2017 03:41 - CONCLUSION: Normal examination. Ho Chavarria MD Foot MRI 02/19/17 0000 Signed Impressions: Service Date/Time: Sunday, February 19, 2017 10:09 - CONCLUSION: Bone marrow edema of the distal phalanx of the first digit. Based on imaging findings and limitations without contrast I cannot confidently diagnose or exclude osteomyelitis at the tuft of the distal phalanx. Suggest followup to evaluate for change. Guy Gordon MD Physical Exam GENERAL: awake and alert, not in respiratory distress. SKIN: Warm and dry. No generalized rash, no ecchymoses and no evidence of embolic lesions. HEAD: Atraumatic. Normocephalic. No temporal wasting, or tenderness. EYES: [place] conjunctiva. No petechia or hemorrhage. Pupils equal, round and reactive to light. Extraocular movements full and intact. No scleral icterus. No injection or drainage. EARS, NOSE AND THROAT: Nose without bleeding or purulent nasal discharge. No sinus tenderness. Mucous membranes pink and moist. No oral lesions noted. No exudate. No oral thrush. NECK: Trachea midline. Supple and not tender, no meningeal signs CARDIOVASCULAR: Regular rate and rhythm. No murmurs, rubs or gallops heard RESPIRATORY: Clear to auscultation. Breath sounds equal bilaterally. No rales , wheezing or rhonchi ABDOMEN: Soft, non-tender, nondistended. Bowel sounds present and normoactive. No guarding. No rebound. No organomegaly. EXTREMITIES: No clubbing, cyanosis, or edema. No joint effusion, has good ROM. No calf tenderness. Well perfused and warm. L foot, at the tip of the big toe is a flat ulcer with very minimal erythema, no significant drainage noted. NEUROLOGICAL: Awake and alert. No facial asymmetry, tongue midline, EOM full and intact. Motor grossly within normal limits. PSYCHIATRIC: Normal affect, calm and cooperative. LINE: No evidence of infection Assessment & Plan Remarks IMPRESSION Sepsis on presentation, source, ?due to C diff, UTI - has very minimal redness on his L big toe with an ulcer - temps better - abdominal exam fairly unremarkable Dry ulcer on L big toe with mild cellulitis - MRI not diagnostic Known DM and HTN Leukocytosis improving RECOMMENDATION Continue ceftin for UTI - to finish 03/05 Continue Lactinex Continue Po Vanco - give at least one week after he finished his Ceftin - so give until March 12 Patient is clinically doing well from ID standpoint He can be D/C from ID standpoint End dates for PO Vanco and Ceftin ordered in [facility] Me Certified I will sign off Please reconsult if there are any other ID issue or concerns Clare Thomson MD Feb 25, 2017 10:20
[2017-02-25] MEDS: SODIUM CHLOR 0.9% 1000 ML INJ 1,000 ML IV SCH ×2 (11:25→13:45)
[2017-02-25] MEDS ORDERED: VANC500I3 PO (14:54)
[2017-02-25] MEDS ORDERED: ALPR.25 PO (14:54)
[2017-02-25] MEDS ORDERED: CEFU1TAB20 PO (14:54)
--- NOTE | 2017-02-25 14:55 | HHI.DS ---
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 difficile colitis ICD Code: A04.7 (4) NASREEN (acute kidney injury) ICD Code: N17.9 (5) DM (diabetes mellitus) ICD Code: E11.9 Procedures none Brief History - From Admission This is a 81-year-old male with a PMH of h/o CVA w/ Residual Right-Sided Hemiparesis, HTN, C Diff, DM and Hyperlipidemia who was [facility] for fever x2 days. Pt without significant complaints except for occasional abdominal pain, reports ongoing diarrhea which is unchanged. On arrival, BP 110/55, HR 99, O2 sat 96% on RA, Afebrile. WBC 16. Creatinine 2.23 , previously 1.15 on 11/27/16. Lactic Acid 1.3. UA pending. CXR with no acute findings. Left Toe X-ray with questionable bone loss involving dorsal medial tip of first distal phalangeal bone, possibly osteomyelitis. S/p Blood Cultures , Vanc/Zosyn in ER. CBC/BMP: 02/24/17 0701 02/24/17 1401 Significant Findings Laboratory Tests Test 02/23/17 02/24/17 02/24/17 11:14 07:01 14:01 White Blood Count 13.2 TH/MM3 11.1 TH/MM3 (4.0-11.0) (4.0-11.0) Red Blood Count 3.19 MIL/MM3 3.15 MIL/MM3 (4.50-5.90) (4.50-5.90) Hemoglobin 9.4 GM/DL 9.2 GM/DL (13.0-17.0) (13.0-17.0) Hematocrit 29.0 % 28.7 % (39.0-51.0) (39.0-51.0) Platelet Count 712 TH/MM3 725 TH/MM3 (150-450) (150-450) Potassium Level 3.3 MEQ/L 2.8 MEQ/L (3.5-5.1) (3.5-5.1) Chloride Level 112 MEQ/L 113 MEQ/L 114 MEQ/L (98-107) (98-107) (98-107) Carbon Dioxide Level 14.6 MEQ/L 16.9 MEQ/L 15.5 MEQ/L (21.0-32.0) (21.0-32.0) (21.0-32.0) Estimat Glomerular Filtration 86 ML/MIN (>89) Rate Random Glucose 120 MG/DL (74-106) Calcium Level 7.4 MG/DL 7.2 MG/DL 7.6 MG/DL (8.5-10.1) (8.5-10.1) (8.5-10.1) Protein Corrected Calcium 8.1 MG/DL 8.0 MG/DL (8.5-10.1) (8.5-10.1) Total Protein 5.9 GM/DL 5.6 GM/DL (6.4-8.2) (6.4-8.2) Mean Corpuscular Hemoglobin 31.9 % Concent (32.0-36.0) Blood Urea Nitrogen 6 MG/DL (7-18) 5 MG/DL (7-18) Imaging Last Impressions Renal Ultrasound 02/23/17 0000 Signed Impressions: Service Date/Time: Thursday, February 23, 2017 14:58 - CONCLUSION: 1. Left renal cyst. Kidneys otherwise within normal limits. 2. 1 cm calculus noted in the gallbladder. Santiago Mcdonough MD Aorta w/Runoff CTA 02/23/17 0000 Signed Impressions: Service Date/Time: Thursday, February 23, 2017 20:17 - CONCLUSION: 1. Diffuse calcified atherosclerotic disease involving the inflow and outflow vessels without a hemodynamically significant stenosis. 2. 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 The patency evaluation of the trifurcation vessels is reduced due to the heavily calcified nature of the vessels. 3. 50%% stenosis of the right renal artery origin. 4. Small right effusion. 5. Cholelithiasis. Raul Garrido Jr., MD Toe X-Ray 02/19/17 0342 Signed Impressions: Service Date/Time: Sunday, February 19, 2017 03:44 - CONCLUSION: On both the AP and oblique films there is questionable bone loss involving the dorsal medial tip of the first distal phalangeal bone raises the possibility of osteomyelitis. Ho Chavarria MD Chest X-Ray 02/19/17 0341 Signed Impressions: Service Date/Time: Sunday, February 19, 2017 03:41 - CONCLUSION: Normal examination. Ho Chavarria MD Foot MRI 02/19/17 0000 Signed Impressions: Service Date/Time: Sunday, February 19, 2017 10:09 - CONCLUSION: Bone marrow edema of the distal phalanx of the first digit. Based on imaging findings and limitations without contrast I cannot confidently diagnose or exclude osteomyelitis at the tuft of the distal phalanx. Suggest followup to evaluate for change. Guy Gordon MD PE at Discharge GENERAL: Elderly white male in no acute distress. CARDIOVASCULAR: Regular rate and rhythm. No obvious murmurs to auscultation. RESPIRATORY: No obvious rhonchi or wheezing. Clear to auscultation. Breath sounds equal bilaterally. GASTROINTESTINAL: Abdomen soft, non-tender, nondistended. BS normal. MUSCULOSKELETAL: Extremities without edema. No obvious deformities. Left toe dressing in place, d/c/i NEUROLOGICAL: Awake, alert. Moving both upper and lower extremities spontaneously. Pt update on day of discharge Pt feeling well. just got off the phone w his and he is happy. denies any chest pain, SOB, n/v Hospital Course Sepsis on day of admission - Fever at SNF, WBC 16, HR 99, Source-questionable Osteomyelitis versus C Diff. - S/p Blood Cultures, Vanc/Zosyn in ER, blood cultures were negative, pt was treated w IV Abx. Urine cultures growing proteus mirabilis. See treatment as below. Left Toe ulcer/infection - X-ray w/ questionable bone loss involving dorsal medial tip of first distal phalangeal bone, possibility of osteomyelitis -MRI showed bone loss involving the dorsal medial tip of the first distal phalangeal bone raises the possibility of osteomyelitis. -Per inspector fuel hose, pt unlikely had osteomyelitis. continue santyl dressing daily to wound -Vascular surgeon following and CTA of lower extremity w runoff shows "Diffuse calcified atherosclerotic disease involving the inflow and outflow vessels without a hemodynamically significant stenosis. 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 The patency evaluation of the trifurcation vessels is reduced due to the heavily calcified nature of the vessels done". Vascular sx didn't not recommend any surgical intervention. UTI -Grew proteus mirabilis. Continue ceftin for UTI - to finish 03/05 C Diff: - Currently on treatment per review of alf records w/ Vanc PO qid give at least one week after he finished his Ceftin end date March 12, Continue Lactinex NASREEN: - resolved Pt Condition on Discharge: Stable Discharge Disposition: Discharge to SNF Discharge Time: > 30 minutes Discharge Instructions DIET: Follow Instructions for: Heart Healthy Diet, Diabetic Diet Activities you can perform: Regular-No Restrictions Follow up Referrals: Physician - 1 Week New Medications: Cefuroxime (Cefuroxime) 500 Mg Tab 500 MG PO Q12HR Days 8 TAB Vancomycin Inj (Vancomycin Inj) 500 Mg Inj 250 MG PO QID Days 15 INJECTION Continued Medications: Acetaminophen (Acetaminophen) 325 Mg Tab 650 MG PO Q6HR PRN PAIN SCALE 1 TO 10 Days 30 TAB Albuterol 8.5 GM Inh (Proair Hfa 8.5 GM Inh) 90 Mcg/Act Aer 2 PUFF INH Q4HR 108 mcg/actuation PRN SHORTNESS OF BREATH #1 Ref 0 INHALER Alprazolam (Xanax) 0.25 Mg Tab 0.25 MG PO Q12HR PRN ANXIETY #5 Ref 0 TAB (This prescription has been renewed) Ascorbic Acid/Ascorbate Sodium (Vit C-Bertha Hips 500 mg Chew Tb) 500 Mg Tab.chew 500 MG PO BID Atorvastatin (Lipitor) 80 Mg Tab 80 MG PO HS Cholesterol Management #30 TAB Cholestyramine (Cholestyramine) 4 Gm/Pkt Powd 4 GM PO Q12HR diarrhea #14 PACK Collagenase Topical (Santyl Topical) 250 Unit/Gm Oint 1 APPLIC TOPICAL DAILY Wound Management #15 Ref 0 GM Dipyridamole-Aspirin (Aggrenox) 200-25 Mg Cap 1 CAP PO Q12HR Stroke Prevention #60 CAP Donepezil HCl (Aricept) 10 Mg Tablet PO HS Fenofibrate (Tricor) 145 Mg Tab 145 MG PO DAILY Takw with food. #30 Ref 0 TAB Gabapentin (Neurontin) 300 Mg Cap 300 MG PO TID #90 Ref 0 CAP Insulin Aspart Inj (Novolog Inj) 1,000 Unit/10 Ml Vial 0 SQ DIRECTED Sliding Scale as directed. Blood Sugar Management #10 Ref 0 ML Insulin Detemir Inj (Levemir Inj) 1,000 unit/ 10 ML Vial 20 UNITS SQ HS Days 30 INJECTION L. Acidophilus/Pectin, [place] (Acidophilus Probiotic Capsule) 1 Each Capsule PO BID Linagliptin (Tradjenta) 5 Mg Tab 10 MG PO DAILY Blood Sugar Management #30 Ref 0 TAB Metoprolol Tartrate (Metoprolol Tartrate) 50 Mg Tab 50 MG PO BID #60 Ref 0 TAB Mirtazapine (Remeron) 15 Mg Tab 15 MG PO HS Depression Control #30 Ref 0 TAB Multiple Vitamins W/ Minerals (Multi Vitamin and Mineral) 1 Tab Tab Nystatin Topical (Nystatin Topical) 100,000 unit/gm Cream 1 APPLIC TOPICAL Q12HR Infection #1 TUBE Nystatin Topical (Nystatin Topical) 100,000 unit/gm Cream 1 APPLIC TOPICAL BID Infection #15 Ref 0 GM Polysaccharide Iron Complex (Poly-Iron 150) 150 Mg Cap 150 MG PO DAILY Nutritional Supplement #30 Ref 0 CAP Discontinued Medications: Vancomycin Inj (Vancomycin Inj) 500 Mg Inj 250 MG PO QID C diff colitis Days 10 INJECTION Queta Hough MD Feb 25, 2017 14:55
[2017-02-25 16:16] VITALS: BP 128/57; PULSE 85; RESP 20; TEMP 96.1; O2SAT 96
== END 2017-02-25 17:39 | DRG 872 ==
LOC: NEPC 03:39 → NEDA 05:07 → N05B 06:23
PROVIDERS: ADMIT Hospitalist; ATTEND Hospitalist
DX: A41.9 Sepsis, unspecified organism (principal); N17.9 Acute kidney failure, unspecified; A04.7 Enterocolitis due to Clostridium difficile; E11.51 Type 2 diabetes mellitus with diabetic peripheral angiopathy without gangrene; I69.351 Hemiplegia and hemiparesis following cerebral infarction affecting right dominant side; N39.0 Urinary tract infection, site not specified; E11.621 Type 2 diabetes mellitus with foot ulcer; J44.9 Chronic obstructive pulmonary disease, unspecified; L97.529 Non-pressure chronic ulcer of other part of left foot with unspecified severity; I10 Essential (primary) hypertension; Z79.4 Long term (current) use of insulin; E78.5 Hyperlipidemia, unspecified; E86.0 Dehydration; L03.032 Cellulitis of left toe; B96.4 Proteus (mirabilis) (morganii) as the cause of diseases classified elsewhere; Z74.01 Bed confinement status
CPT/HCPCS: 71010; 73660; 73718; 75635; 76775; 76937; 80048; 80053; 80202; 81001; 82948; 83605; 83735; 84155; 85025; 85027; 87040; 87077; 87086; 87186; 93922; 99285; J0692; J1815; J2543; J3370; J3480; J7030; J7040; J7050; Q9967